=== PATIENT | female | born 1950 | race Caucasian/White ===

== ENCOUNTER 2019-12-31 08:48 | Outpatient (REF) | payer MEDICARE, OTHER, SELFPAY ==
--- NOTE | 2019-12-31 | MM_ITS ---
EXAMINATION: MM SCREENING DIGITAL BREAST TOMOSYNTHESIS, BILATERAL CLINICAL INFORMATION: Screening. Asymptomatic. The lifetime risk of breast cancer based on the Tyrer-Cuzick Model is 3%. COMPARISON: Mammography: 12/25/2018, 10/24/2017, 09/26/2016 TECHNIQUE: Digital breast tomosynthesis is performed in both the craniocaudal and mediolateral oblique views along with computer-aided detection (CAD). Synthesized 2D images are generated from the tomosynthesis. Additional left MLO view is provided. FINDINGS: The breasts are heterogeneously dense, which may obscure small masses (ACR BI-RADS breast composition Category c). There are no significant masses, abnormal calcifications, or other abnormalities. Parenchymal pattern is similar to prior studies. The axilla and skin contours are unremarkable. IMPRESSION: No significant changes from prior studies. ASSESSMENT: BI-RADS 1: Negative RECOMMENDATION: Routine annual mammography screening. This patient's information was entered into a reminder system with a target due date for their next mammogram.
== END 2019-12-31 08:49 | disposition home or self-care (01) ==
LOC: HO.MAMMO 08:48
PROVIDERS: PCP Internal Medicine; Visit Provider Internal Medicine
DX: Z12.31 Encounter for screening mammogram for malignant neoplasm of breast (principal)
CPT/HCPCS: 77063; 77067; 78014

== ENCOUNTER 2020-01-22 09:18 | Outpatient (REF) | payer MEDICARE, OTHER, SELFPAY ==
[2020-01-22 11:58] LABS: Cholesterol 229 mg/dL; HDL Cholesterol 112 mg/dL; LDL Cholesterol Calculated 95 mg/dl; Triglycerides 111 mg/dL
== END 2020-01-22 09:19 | disposition home or self-care (01) ==
LOC: HO.HMGCLDS 09:18
PROVIDERS: PCP Internal Medicine; Visit Provider Internal Medicine
DX: E78.5 Hyperlipidemia, unspecified (principal)
CPT/HCPCS: 80061

== ENCOUNTER 2020-02-08 09:08 | Day surgery (SDC) | payer MEDICARE, OTHER, SELFPAY ==
[2020-02-02 15:32] VITALS: BMI 23.3
--- NOTE | 2020-02-05 09:36 | HO.ANESPROP2 ---
Documented by User: Malka Mejia 02/05/20 09:36 HPI - Anesthesia Eval Consult details Narrative: 69yo F for Colonoscopy PMFSH Past Medical History Medical History Elevated cholesterol Hypertension Family History Family History Father No problems noted. Mother Ovarian cancer Son Kidney malignancy Maternal Aunt Ovarian cancer Surgical History Surgical History H/O hernia repair History of tubal ligation Hx of colonoscopy Social History Social History Are you a primary personal care service provider to a significant other at home: No Do you presently have visiting nurse or other home services: No Smoking Status: Current every day smoker Packs Per Day: 0.5 Cigarettes Per Day: 10.0 Years Smoked: 55 Smoked in Last 30 Days: Yes Patient Interested in Nicotine Replacement: No Patient Given Instructions on How to Stop Smoking: Yes Date Education Initiated: 02/02/20 Use of substances other than those prescribed or required for medical reasons: No Advance Directives: No Advance Directives Information Provided: No Advance Directives on File: No Meds Allergies Allergy/AdvReac Type Severity Reaction Status Date / Time acetaminophen AdvReac Anxiety Verified 02/02/20 15:28 [From Tylenol PM] diphenhydramine AdvReac Anxiety Verified 02/02/20 15:28 [From Tylenol PM] Home Medications Medication Instructions Recorded Confirmed Type amlodipine 5 mg tablet 5 mg PO DAILY 01/29/20 02/02/20 History calcium carbonate 600 mg calcium 600 mg PO DAILY 01/29/20 02/02/20 History (1,500 mg) tablet naproxen 500 mg tablet 500 mg PO BID PRN 01/29/20 02/02/20 History omega-3 fatty acids 1,000 mg 1,000 mg PO DAILY 01/29/20 02/02/20 History capsule cholecalciferol (vitamin D3) 25 mcg PO DAILY 02/02/20 02/02/20 History [Vitamin D3] flaxseed 1,000 mg PO DAILY 02/02/20 02/02/20 History Exam Exam Date and Time: February 05, 2020 0936 Height,Weight and Vital Signs: Height 5 ft 2.5 in Weight 58.967 kg Assessment and Plan Assessment Anesthesia Assessment: Chart Reviewed Documented by User: Lobo Vasquez 02/08/20 10:38 PMFSH Past Medical History Medical History Elevated cholesterol Hypertension Family History Family History Father No problems noted. Mother Ovarian cancer Son Kidney malignancy Maternal Aunt Ovarian cancer Surgical History Surgical History H/O hernia repair History of tubal ligation Hx of colonoscopy Social History Social History Are you a primary personal care service provider to a significant other at home: No Do you presently have visiting nurse or other home services: No Smoking Status: Current every day smoker Packs Per Day: 0.5 Cigarettes Per Day: 10.0 Years Smoked: 55 Smoked in Last 30 Days: Yes Patient Interested in Nicotine Replacement: No Patient Given Instructions on How to Stop Smoking: Yes Date Education Initiated: 02/02/20 Use of substances other than those prescribed or required for medical reasons: No Advance Directives: No Advance Directives Information Provided: No Advance Directives on File: No Meds Allergies Allergy/AdvReac Type Severity Reaction Status Date / Time acetaminophen AdvReac Anxiety Verified 02/02/20 15:28 [From Tylenol PM] diphenhydramine AdvReac Anxiety Verified 02/02/20 15:28 [From Tylenol PM] Home Medications Medication Instructions Recorded Confirmed Type amlodipine 5 mg tablet 5 mg PO DAILY 01/29/20 02/02/20 History calcium carbonate 600 mg calcium 600 mg PO DAILY 01/29/20 02/02/20 History (1,500 mg) tablet naproxen 500 mg tablet 500 mg PO BID PRN 01/29/20 02/02/20 History omega-3 fatty acids 1,000 mg 1,000 mg PO DAILY 01/29/20 02/02/20 History capsule cholecalciferol (vitamin D3) 25 mcg PO DAILY 02/02/20 02/02/20 History [Vitamin D3] flaxseed 1,000 mg PO DAILY 02/02/20 02/02/20 History Exam Airway Mallampati Class: II Neck ROM: Full Denture: Upper and Lower Heart: [id number] Lungs: ctab/l Assessment and Plan Assessment Anesthesia Assessment: Anesthesia Plan Discussed, Smoking Cess. Discussed, PAT Visit and Chart Reviewed Final Anesthetic Review NPO: Yes ASA Class: III Final Preanesthetic Review: No Changes in Pt Med Stat, Consent Obtained/Reviewed and Anes Risks/Benef Reviewed Patient Risk: Intermediate Procedure Risk: Low Assessment/Block/Sedation in SS: Assess/Block/Sedation-SS Anesthetic Plan Anesthetic Plan: MAC: Disposition: Standard PACU
[2020-02-08 10:22] VITALS: BP 130/73; PULSE 85; RESP 18; TEMP 36.5; O2SAT 100
[2020-02-08] MEDS: Lactated Ringers 1,000 ML 100 ML IVCONT (10:34)
[2020-02-08 11:49] VITALS: BP 101/55; PULSE 64; RESP 12; TEMP 36.1; O2SAT 96
--- NOTE | 2020-02-08 11:54 | PM.OP ---
Brief Operative Note Date of procedure: 02/08/20 Pre-op diagnosis: Screening Post-op diagnosis: other (Colon polyp along Ileocecal Valve, Diverticulosis, Internal hemorrhoids) Procedure: Colonoscopy to cecum and TI with biopsies Surgeon: Edwin Morton Anesthesia: MAC Estimated blood loss (mL): 3.0 Pathology: other (A. Polypoid lesion along Ileocecal valve) Condition: stable Disposition: PACU
[2020-02-08 12:03] VITALS: BP 138/70; PULSE 60; RESP 16; O2SAT 99
--- NOTE | 2020-02-08 12:32 | OP_ITS ---
SURGEON: Edwin Morton MD INDICATIONS: The patient presents for evaluation of colorectal cancer screening. Full consent has been obtained from her for this, including risks of bleeding and perforation. PREOPERATIVE DIAGNOSIS: Colorectal cancer screening. POSTOPERATIVE DIAGNOSIS: PROCEDURE PERFORMED: Colonoscopy to the cecum and terminal ileum with biopsies. ESTIMATED BLOOD LOSS: COMPLICATIONS: ANESTHESIA: Monitored anesthesia care and glucagon 1.0 mg IV x1 dose. ASSISTANTS: SPECIMENS: POSTOPERATIVE DIAGNOSES: Colorectal cancer screening, colon polyp along ileocecal valve, diverticulosis, internal hemorrhoids. DESCRIPTION OF PROCEDURE: The patient was placed in the left lateral decubitus position. The digital rectal exam revealed no abnormalities. The Olympus video pediatric colonoscope was entered into the rectum and advanced easily to the cecum. Once in the cecum, I did identify normal-appearing cecal pouch with appendiceal orifice. The terminal ileum was cannulated and appeared normal. Scope was withdrawn back in the colon. The entire cecum appeared normal. The scope was then slowly withdrawn assessing all mucosal surfaces carefully. The ileocecal valve was carefully inspected. Along the outer portion or lip of the ileocecal valve, extending along the entire portion of this part of the ileocecal valve, was a slightly raised, but grossly adenomatous appearing tissue. It was not ulcerated and did not appear grossly malignant. Nonetheless, it did appear adenomatous and involve the entire length of this part of the ileocecal valve. As best I could tell, it did not actually enter the valve itself. Given its location and the involvement of the great majority of this part of the ileocecal valve, I did opt to only biopsy it rather than try to remove it. The scope was then slowly withdrawn assessing the remainder of the colon carefully. Preparation was excellent. I did not visualize any polyps, colitis, nor angiodysplasia. There was a mild amount of sigmoid diverticulosis. In the rectum, scope was retroflexed visualizing internal hemorrhoids, but no other pathology. The rectal mucosa appeared normal. The scope was straightened out and withdrawn from the patient. She tolerated procedure well and was returned to the recovery area in stable condition. IMPRESSION: 1. Probable adenomatous polypoid lesion along ileocecal valve, status post biopsy. 2. Diverticulosis. 3. Internal hemorrhoids. PLAN: The results of biopsy will be checked. If indeed this is adenomatous tissue, we would then have to decide how best to try to remove it. Given its location, rather diffuse involvement of this part of the ileocecal valve, and her relatively young age, one option would be surgical resection. Another option would be attempting to remove this endoscopically. The results of the pathology will be checked and we shall make arrangements as needed. She was advised not to use any aspirin and NSAIDs for 1 week. MD YENNIFER Hargrove/KAYLEY / [id number] MTDD
== END 2020-02-08 11:45 | disposition home or self-care (01) ==
PROVIDERS: PCP Internal Medicine; Visit Provider Internal Medicine
PROC: 0DJD8ZZ Inspection of Lower Intestinal Tract, Via Natural or Artificial Opening Endoscopic (ICD-10-PCS; CPT 45378; principal; 2020-02-08 10:30)
DX: Z12.11 Encounter for screening for malignant neoplasm of colon (principal); Z86.010 Personal history of colon polyps; D12.0 Benign neoplasm of cecum; K57.30 Diverticulosis of large intestine without perforation or abscess without bleeding; K64.8 Other hemorrhoids; I10 Essential (primary) hypertension; E78.00 Pure hypercholesterolemia, unspecified; Z79.899 Other long term (current) drug therapy; Z79.1 Long term (current) use of non-steroidal anti-inflammatories (NSAID); F17.210 Nicotine dependence, cigarettes, uncomplicated
CPT/HCPCS: 45380; 88305

== ENCOUNTER → 2020-03-15 09:26 | Outpatient (BNVA) | payer MEDICARE, OTHER, SELFPAY | PROVIDERS: PCP Internal Medicine; Referring Provider Internal Medicine; Visit Provider Surgery | DX: D12.0 Benign neoplasm of cecum (principal); F17.200 Nicotine dependence, unspecified, uncomplicated | CPT/HCPCS: 99202 ==

== ENCOUNTER 2020-03-23 06:43 | Inpatient (IN) | payer MEDICARE, OTHER, SELFPAY ==
--- NOTE | 2020-03-21 13:32 | HO.ANESPROP2 ---
Documented by User: Malka Mejia 03/21/20 13:32 HPI - Anesthesia Eval Consult details Narrative: 70yo F for Hand Assisted Colectomy Laparoscopic, Cecum PMFSH Past Medical History Medical History Elevated cholesterol History of pain when walking Hypertension Situational anxiety Family History Family History Father No problems noted. Mother Ovarian cancer Son Kidney malignancy Maternal Aunt Ovarian cancer Surgical History Surgical History H/O hernia repair History of tubal ligation Hx of colonoscopy Hx of tonsillectomy Social History Social History Household Members Other:: grandson+friend Are you a primary care transitions nurse to a significant other at home: No Do you presently have visiting nurse or other home services: No Alcohol intake: current Alcohol intake frequency: 0-2 drinks per day Alcohol type: hard liquor Smoking Status: Current every day smoker Tobacco Type: Cigarette Packs Per Day: 0.5 Cigarettes Per Day: 10 Years Smoked: 30 Patient Interested in Nicotine Replacement: Yes Patient Given Instructions on How to Stop Smoking: Yes Date Education Initiated: 03/16/20 Use of substances other than those prescribed or required for medical reasons: No Have you been hit, kicked, punched, or otherwise hurt by someone within the past year? If so, by whom?: No Advance Directives: No Advance Directives Information Provided: No Advance Directives on File: No Recently lost weight without trying: No Meds Allergies Allergy/AdvReac Type Severity Reaction Status Date / Time diphenhydramine AdvReac Anxiety Verified 03/23/20 06:36 [From Tylenol PM] Home Medications Medication Instructions Recorded Confirmed Type calcium carbonate 600 mg calcium 600 mg PO DAILY 01/29/20 03/23/20 History (1,500 mg) tablet naproxen 500 mg tablet 500 mg PO BID PRN 01/29/20 03/23/20 History omega-3 fatty acids 1,000 mg 1,000 mg PO DAILY 01/29/20 03/23/20 History capsule cholecalciferol (vitamin D3) 25 mcg PO DAILY 02/02/20 03/23/20 History [Vitamin D3] flaxseed 1,000 mg PO DAILY 02/02/20 03/23/20 History Exam Exam Date and Time: March 21, 2020 1332 Documented by User: Leatha Palafox 03/23/20 07:33 PMFSH Past Medical History Medical History Elevated cholesterol History of pain when walking Hypertension Situational anxiety Family History Family History Father No problems noted. Mother Ovarian cancer Son Kidney malignancy Maternal Aunt Ovarian cancer Surgical History Surgical History H/O hernia repair History of tubal ligation Hx of colonoscopy Hx of tonsillectomy Social History Social History Household Members Other:: grandson+friend Are you a primary care transitions nurse to a significant other at home: No Do you presently have visiting nurse or other home services: No Alcohol intake: current Alcohol intake frequency: 0-2 drinks per day Alcohol type: hard liquor Smoking Status: Current every day smoker Tobacco Type: Cigarette Packs Per Day: 0.5 Cigarettes Per Day: 10 Years Smoked: 30 Patient Interested in Nicotine Replacement: Yes Patient Given Instructions on How to Stop Smoking: Yes Date Education Initiated: 03/16/20 Use of substances other than those prescribed or required for medical reasons: No Have you been hit, kicked, punched, or otherwise hurt by someone within the past year? If so, by whom?: No Advance Directives: No Advance Directives Information Provided: No Advance Directives on File: No Recently lost weight without trying: No Meds Allergies Allergy/AdvReac Type Severity Reaction Status Date / Time diphenhydramine AdvReac Anxiety Verified 03/23/20 06:36 [From Tylenol PM] Home Medications Medication Instructions Recorded Confirmed Type calcium carbonate 600 mg calcium 600 mg PO DAILY 01/29/20 03/23/20 History (1,500 mg) tablet naproxen 500 mg tablet 500 mg PO BID PRN 01/29/20 03/23/20 History omega-3 fatty acids 1,000 mg 1,000 mg PO DAILY 01/29/20 03/23/20 History capsule cholecalciferol (vitamin D3) 25 mcg PO DAILY 02/02/20 03/23/20 History [Vitamin D3] flaxseed 1,000 mg PO DAILY 02/02/20 03/23/20 History Exam Airway Mallampati Class: I TM Dist: >3cm Neck ROM: Limited Denture: Upper Loose/Missing/Broken Teeth: No Heart: RRR Lungs: CTA Assessment and Plan Assessment Anesthesia Assessment: Anesthesia Plan Discussed and Chart Reviewed Final Anesthetic Review NPO: Yes ASA Class: II Final Preanesthetic Review: Meds/Allgs Chart Reviewed, Consent Obtained/Reviewed and Anes Risks/Benef Reviewed Patient Risk: Intermediate Procedure Risk: Intermediate Anesthetic Plan Anesthetic Plan: GA Disposition: Standard PACU
[2020-03-22 14:52] VITALS: BMI 24.3
[2020-03-23] VITALS (14 sets, daily range): BP systolic 117–132; BP diastolic 55–93; PULSE 64–95; RESP 16–18; TEMP 36–36.4; O2SAT 92–99
--- NOTE | 2020-03-23 | ECG_ITS ---
Test Reason : preop cardio eval Blood Pressure : / mmHG Vent. Rate : 082 BPM Atrial Rate : 082 BPM P-R Int : 184 ms QRS Dur : 088 ms QT Int : 360 ms P-R-T Axes : 069 -75 065 degrees QTc Int : 420 ms Normal sinus rhythm Possible Left atrial enlargement Left axis deviation Abnormal ECG No previous ECGs available Referred By: Malka Mejia Electronically Signed By:SHASHA PERSAUD MD
[2020-03-23 06:42] LABS: COVID-19 Test Negative (Negative)
[2020-03-23 06:49] LABS: Hematocrit 42.1 % (37-47); Hemoglobin 15.1 g/dl (12.0-16.0); Mean Corpuscular HGB Conc 35.9 g/dl (31.0-35.0); Mean Corpuscular Volume 100.5 fL (80-98); Platelet Count 325 X10*3/uL (160-400); Red Blood Count 4.19 X10*6/uL (4.20-5.50); Red Cell Distribution Width 12.1 % (11.0-16.0); White Blood Count 7.1 X10*3/uL (4.8-10.8)
[2020-03-23] MEDS: Lactated Ringers 1,000 ML 100 ML IVCONT (06:51)
--- NOTE | 2020-03-23 07:20 | MHC.SHP ---
Pre-Procedural Eval Section A The patient is an INPATIENT: No Changes since office visit: Yes Patient answered all questions; No Cold of Flu in the past 2 weeks, No New Medical Problems and No Changes in Medication The History & Physical has been completed within 30 days and I have reviewed it.: Yes Section B Chief Complaint: S/P COLECTOMY Allergies: Allergies Allergy/AdvReac Type Severity Reaction Status Date / Time diphenhydramine AdvReac Anxiety Verified 03/23/20 06:36 [From Tylenol PM] Plan I have reviewed the history and physical and performed a pertinent physical examination on my patient. No changes have occurred unless specified.
[2020-03-23 07:22] LABS: Anion Gap 16 (12-20); Blood Urea Nitrogen 12 mg/dL (9-16); Calcium 9.5 mg/dL (8.4-10.2); Carbon Dioxide 23 mmol/L (22-29); Chloride 100 mmol/L (96-108); Creatinine Clr Calc Pharmacy 69.4; Estimated Glomerular Filt Rate > 60; Glucose Fasting 101 mg/dL (60-99); Potassium 3.2 mmol/l (3.3-5.1); Sodium 136 mmol/L (135-145)
--- NOTE | 2020-03-23 07:32 | PC.NURSE ---
ANESTHESIA MADE AWARE OF K=3.2 AT 728,NO NEW ORDERS
--- NOTE | 2020-03-23 09:20 | W.PM.OPN ---
Operative Note Operative Note Date of Service: 03/23/20 Narrative: Preoperative diagnosis: Sessile polyp ileocecal valve Postoperative diagnosis: Same Procedure: Cecal resection Environmental Studies Program Director: YAZMIN Smith Anesthesia: General endotracheal Specimen: Cecum Estimated blood loss: 20 cc Immediate complications: None Indications: This is a 70-year-old female who recently underwent colonoscopy. A sessile polyp was identified that appeared to be extending into the ileocecal valve. It was not possible to resect the polyp endoscopically with good confidence that it had been removed and decision was made to proceed with cecal resection. Procedure in detail: The patient in the supine position following induction of adequate general anesthesia, the abdomen was prepped with ChloraPrep and was draped sterilely. Time-out procedure was performed. 2 g of cefotetan were infused for antibiotic prophylaxis. Skin and subcutaneous tissues along the lower midline were infiltrated with local anesthetic and an approximately 8 cm incision was made beginning just above the umbilicus and extending inferiorly in the midline. The incision was deepened through the level of the fascia using the electrosurgical pencil. The peritoneum was elevated with Elma clamps and was incised. Exploration was carried out. The cecum will was identified easily. Moist packs replaced into the abdomen and Kerns retractor was placed along the right lateral margin. The cecum and right colon were mobilized along the lateral peritoneal reflection. Mobilization was then carried along inferior to the cecum. The cecum, proximal right colon and distal ileum could then be delivered through the incision. Tell for placed around wound edges. An incision was made along the mesenteric margin of the distal ileum approximately 5 cm from the ileocecal valve. The AYO 60, 3.8 stapler was employed to divide the small bowel at that level. Point for division of the right colon just distal to the cecum was chosen and the mesentery was divided using the LigaSure up to that point. The AYO 60, 3.8 stapler was again employed to divide the right colon at that level. Following this, a functional end-to-end anastomosis was created using the AYO 60, 3.8 and TA 60, 3.5 staplers. Staple lines were inspected to ensure that there was no bleeding prior to completing the anastomosis. The crotch of the anastomosis was reinforced with a single interrupted suture of 2 0 Polysorb. Sponges were placed around the base of the bowel to the level of the anastomosis and the area was irrigated with saline solution and again inspected for bleeding. None was seen. Gloves and instruments were changed. The mesentery was closed with a single [id number] suture of 2 0 Polysorb. The area of the anastomosis was allowed to drop back into the peritoneal cavity. The abdomen was too irrigated with saline solution and again inspected for bleeding. None was seen. The omentum was placed beneath the incision. The fascia was then closed in a running fashion using 1. Maxon. Subcutaneous tissues were irrigated and loosely reapproximated with interrupted sutures 2 0 Polysorb. Skin was reapproximated using nathen and wound ac of quarter-inch plain packing were placed between approximately every 3rd staple. A dry sterile dressing was applied. Immediate gross of the operative specimen revealed that the polyp appeared to be completely excised. Sponge and instrument counts were correct. She tolerated the procedure well and was transported to the recovery room in stable condition. There were no immediate complications.
[2020-03-23] MEDS: Lactated Ringers 1,000 ML 80 ML IVCONT (14:14)
[2020-03-23] MEDS: oxyCODONE HCl Immed Release 5 MG TABLET PO (21:12)
[2020-03-23] MEDS: Atorvastatin Calcium 20 MG TABLET PO (21:12)
[2020-03-24] VITALS (7 sets, daily range): BP systolic 120–150; BP diastolic 56–73; PULSE 60–83; RESP 16–20; TEMP 36.4–36.9; O2SAT 93–96
[2020-03-24] MEDS: Lactated Ringers 1,000 ML 80 ML IVCONT (03:58)
[2020-03-24 06:49] LABS: Hematocrit 35.6 % (37-47); Hemoglobin 12.5 g/dl (12.0-16.0); Mean Corpuscular HGB Conc 35.1 g/dl (31.0-35.0); Mean Corpuscular Hemoglobin 35.7 pg (27.0-33.0); Mean Corpuscular Volume 101.7 fL (80-98); Mean Platelet Volume 9.6 fL (9.4-12.3); Platelet Count 277 X10*3/uL (160-400); Red Cell Distribution Width 12.2 % (11.0-16.0); White Blood Count 14.4 X10*3/uL (4.8-10.8)
[2020-03-24 07:30] LABS: Anion Gap 12 (12-20); Blood Urea Nitrogen 6 mg/dL (9-16); Calcium 8.8 mg/dL (8.4-10.2); Carbon Dioxide 26 mmol/L (22-29); Chloride 101 mmol/L (96-108); Creatinine Clr Calc Pharmacy 70.5; Estimated Glomerular Filt Rate > 60; Glucose Fasting 120 mg/dL (60-99); Potassium 3.1 mmol/l (3.3-5.1); Sodium 136 mmol/L (135-145)
[2020-03-24] MEDS: amLODIPine Besylate 5 MG TABLET PO (08:56)
--- NOTE | 2020-03-24 09:20 | PM.PNGS ---
Subjective Subjective Date of Service: 03/24/20 Interval history: Reports incisional soreness. Has only taken 1 dose of oxycodone. Tolerating clear liquids. Physical Exam Vital Signs: Vital Signs: Last Vital Signs Temp 97.8 F 03/24/20 08:00 Pulse 63 03/24/20 08:56 Resp 20 03/24/20 08:00 BP 127/56 L 03/24/20 08:56 Pulse Ox 96 03/24/20 08:00 Body Mass Index 24.3 Const: Other: Alert, appears comfortable Resp: Other: Clear to auscultation Cardio: Other: Regular rate and rhythm GI: Other: Soft, nondistended, bowel sounds active, dressing dry and intact Progress Note: A&P Assessment and plan (1) Adenoma: Problem details: She has an adenomatous lesion at the level of the ileocecal valve that could not be resected endoscopically. Status: Acute Assessment and Plan: She is doing well following ileocecal resection for sessile polyp of the ileocecal valve. She is tolerating clear liquids. Diet will be advanced to regular. Will stop IV fluids. Rosales catheter has been removed. She has mild hypokalemia this morning. Will give p.o. potassium. Recheck level tomorrow. Fall Risk Details Current Medications: Current Medications Generic Name Dose Route Start Last Admin Trade Name Freq PRN Reason Stop Dose Admin Amlodipine Besylate 5 mg 03/24/20 09:00 03/24/20 08:56 Amlodipine Besylate 5 Mg Tablet PO 5 mg DAILY RENATO Administration Protocol Atorvastatin Calcium 20 mg 03/23/20 21:00 03/23/20 21:12 Atorvastatin Calcium 20 Mg Tablet PO 20 mg BEDTIME RENATO Administration Acetaminophen 1,000 mg in 100 mls @ 400 mls/hr 03/24/20 09:00 Ofirmev IV 03/26/20 03:14 Q6H RENATO Potassium Chloride 20 meq/ 1,010 mls @ 80 mls/hr 03/24/20 08:00 Lactated Ringer's IVCONT .[id number] RENATO Morphine Sulfate 4 mg 03/23/20 13:40 Morphine Sulfate 4 Mg/Ml Cartridge IVPUSH Q3H PRN Pain, Severe (Pain Scale 7-10) Ondansetron HCl 4 mg 03/23/20 13:40 Ondansetron Hcl 4 Mg/2 Ml Vial IVPUSH Q8H PRN Nausea and Vomiting Oxycodone HCl 5 mg 03/23/20 13:40 03/23/20 21:12 Oxycodone Hcl Immed Release 5 Mg Tablet PO 5 mg Q4H PRN Administration Pain, Moderate (Pain Scale 4-6 Time Spent With Patient Time: Total time spent is greater than 50% in coordination of care (as documented) at patient's floor/unit and/or counseling patient: Time with patient: 15 - 24 minutes
--- NOTE | 2020-03-24 09:54 | HO.POSTANES ---
Post Anesthesia Evaluation Post Anesthesia Evaluation Vital Signs: Vital Signs Temp Pulse Resp BP Pulse Ox 03/24/20 08:56 63 127/56 L 03/24/20 08:00 97.8 F 63 20 127/56 L 96 03/24/20 03:53 97.7 F 67 16 135/70 95 03/24/20 00:00 98.2 F 83 16 129/70 94 Anesthesia: General Endotracheal-GETA Mental Status: Awake Pain Control: Satisfactory Nausea/Vomiting: None Hydration: Adequate Anesthesia-Related Issues: No Anes. Related Issues
[2020-03-24] MEDS: Potassium Chloride ER 20 MEQ TAB.ER.PRT PO (10:16)
--- NOTE | 2020-03-24 11:32 | MHC.CR.30 ---
[address] [phone] F: [phone] Cardiac Rehab Reassessment Diagnosis: Initial Evaluation date: Total Sessions Attended: Progress Note Type: Last Progress Note Date: Medications: Medication Changes: Comments: Please sign and return to Cardiac Rehab. Thank you.
--- NOTE | 2020-03-24 11:34 | MHC.CM.PN ---
NURSE DAIRY CONSULTANT NOTE ELECTRONIC MEDICAL RECORD REVIEWED ALONG WITH CASE DISCUSSED WITH STAFF NURSE , AND ON MULTIPLE DISCIPLINARY ROUNDS. PATIENT LIVES ALONE, PATIENT IS ACTIVE INDEPENDENT IN ALL ADLS AND MOBILITY, CONTINUES TO DRIVE. SHE HAS NO VNA/NO DURABLE MEDICAL EQUIPMENT IN THE HOME, ( DISCHARGE PLAN S/P ( CECAL RESECTION ) HOME NO SERVICES [facility] ORDERED PCP DR SINGLETON PATIENT TO CALL FOR POST HOSPITAL D/C FOLLOWUP SURGICAL FOLLOW UP PER D/C INSTRUCTIONS TRANSPORTATION -PATIENT TO CALL FAMILY IMM EXPLAINED AND GIVEN 03/24/2020
[2020-03-24] MEDS: Morphine Sulfate 4 MG/ML CARTRIDGE IVPUSH (20:19)
[2020-03-24] MEDS: Docusate Sodium 100 MG CAPSULE PO (20:22)
[2020-03-24] MEDS: Atorvastatin Calcium 20 MG TABLET PO (20:22)
[2020-03-25] VITALS: BP 163/92; PULSE 84; RESP 18; TEMP 37.1; O2SAT 93
[2020-03-25] MEDS: oxyCODONE HCl Immed Release 5 MG TABLET 10 MG PO (01:13)
[2020-03-25 04:00] VITALS: BP 165/100; PULSE 94; RESP 16; TEMP 36.6; O2SAT 95
[2020-03-25 07:20] VITALS: BP 156/90; PULSE 110; RESP 18; TEMP 36.6; O2SAT 96
--- NOTE | 2020-03-25 08:21 | PM.PNGS ---
Subjective Subjective Date of Service: 03/25/20 Interval history: Postoperative day 2 status post partial colectomy. She was advanced to a regular diet last evening but reports tolerating only small portion before she felt increased discomfort. She denies nausea or vomiting. She feels she may have a bowel movement today. She reports having difficulty sleeping last night. Physical Exam Vital Signs: Vital Signs: Last Vital Signs Temp 97.8 F 03/25/20 07:20 Pulse 110 H 03/25/20 07:20 Resp 18 03/25/20 07:20 BP 156/90 H 03/25/20 07:20 Pulse Ox 96 03/25/20 07:20 Body Mass Index 24.3 Const: General: cooperative, healthy appearing, comfortable and no acute distress Resp: Other: On 2 L nasal cannula, O2 sat 97% Effort & Inspection: normal respiratory effort Auscultation: no rhonchi and no wheezes GI: Other: Soft, nondistended, appropriate incisional tenderness, wounds clean and intact Skin: Other: Warm and dry, no rash Extrem: Other: No edema Progress Note: A&P Assessment and plan (1) Adenoma: Problem details: She has an adenomatous lesion at the level of the ileocecal valve that could not be resected endoscopically. Status: Acute Assessment and Plan: Patient is now 2 days post partial colectomy for an ileocecal adenomatous lesion. She tolerated the procedure well and is recovering nicely. She tolerated some regular food yesterday but does not feel comfortable enough to go home today. She denies a bowel movement as of yet. Patient encouraged to ambulate and use the incentive spirometry. Will re-evaluate in the a.m. for possible discharge. Pathology is pending. Fall Risk Details Current Medications: Current Medications Generic Name Dose Route Start Last Admin Trade Name Freq PRN Reason Stop Dose Admin Amlodipine Besylate 5 mg 03/24/20 09:00 03/24/20 08:56 Amlodipine Besylate 5 Mg Tablet PO 5 mg DAILY RENATO Administration Protocol Atorvastatin Calcium 20 mg 03/23/20 21:00 03/24/20 20:22 Atorvastatin Calcium 20 Mg Tablet PO 20 mg BEDTIME RENATO Administration Docusate Sodium 100 mg 03/24/20 21:00 03/24/20 20:22 Docusate Sodium 100 Mg Capsule PO 100 mg BID RENATO Administration Acetaminophen 1,000 mg in 100 mls @ 400 mls/hr 03/24/20 09:00 03/25/20 01:14 Ofirmev IV 03/26/20 03:14 Not Given Q6H RENATO Morphine Sulfate 4 mg 03/23/20 13:40 03/24/20 20:19 Morphine Sulfate 4 Mg/Ml Cartridge IVPUSH 4 mg Q3H PRN Administration Pain, Severe (Pain Scale 7-10) Ondansetron HCl 4 mg 03/23/20 13:40 Ondansetron Hcl 4 Mg/2 Ml Vial IVPUSH Q8H PRN Nausea and Vomiting Oxycodone HCl 5 mg 03/23/20 13:40 03/23/20 21:12 Oxycodone Hcl Immed Release 5 Mg Tablet PO 5 mg Q4H PRN Administration Pain, Moderate (Pain Scale 4-6 Oxycodone HCl 10 mg 03/24/20 15:06 03/25/20 01:13 Oxycodone Hcl Immed Release 5 Mg Tablet PO 10 mg Q4H PRN Administration Pain, Severe (Pain Scale 7-10) Time Spent With Patient Time: Total time spent is greater than 50% in coordination of care (as documented) at patient's floor/unit and/or counseling patient: Time with patient: 15 - 24 minutes
[2020-03-25 09:09] LABS: Anion Gap 17 (12-20); Blood Urea Nitrogen 9 mg/dL (9-16); Calcium 9.6 mg/dL (8.4-10.2); Carbon Dioxide 21 mmol/L (22-29); Chloride 101 mmol/L (96-108); Creatinine Clr Calc Pharmacy 59.2; Estimated Glomerular Filt Rate > 60; Glucose Fasting 139 mg/dL (60-99); Potassium 3.4 mmol/l (3.3-5.1); Sodium 136 mmol/L (135-145)
[2020-03-25] MEDS: amLODIPine Besylate 5 MG TABLET PO (09:13)
[2020-03-25] MEDS: Docusate Sodium 100 MG CAPSULE PO ×2 (09:13→20:59)
[2020-03-25 12:00] VITALS: BP 114/80; PULSE 111; RESP 16; TEMP 36.2; O2SAT 100
[2020-03-25 16:00] VITALS: BP 139/78; PULSE 110; RESP 18; TEMP 36.9; O2SAT 94
[2020-03-25 19:06] VITALS: BP 153/80; PULSE 112; RESP 18; TEMP 36.2; O2SAT 96
[2020-03-25] MEDS: Zolpidem Tartrate 5 MG TABLET PO (20:59)
[2020-03-25] MEDS: Atorvastatin Calcium 20 MG TABLET PO (20:59)
[2020-03-26] VITALS: BP 149/91; PULSE 111; RESP 18; TEMP 35.9; O2SAT 97
[2020-03-26 04:00] VITALS: BP 155/93; PULSE 109; RESP 16; TEMP 36; O2SAT 97
[2020-03-26 08:00] VITALS: BP 126/83; PULSE 117; RESP 18; TEMP 36.3; O2SAT 96
[2020-03-26 09:12] VITALS: BP 126/83; PULSE 117
[2020-03-26] MEDS: amLODIPine Besylate 5 MG TABLET PO (09:12)
[2020-03-26] MEDS: Acetaminophen 325 MG TABLET 650 MG PO (09:12)
[2020-03-26] MEDS: Docusate Sodium 100 MG CAPSULE PO (09:12)
--- NOTE | 2020-03-26 09:32 | PM.PNGS ---
Subjective Subjective Date of Service: 03/26/20 Interval history: Patient tolerated a regular diet yesterday and feels much improved today. She was able to get some sleep overnight. She denies nausea, vomiting, fever, or chills. She would like to be discharged to home today. Physical Exam Vital Signs: Vital Signs: Last Vital Signs Temp 97.3 F 03/26/20 08:00 Pulse 117 H 03/26/20 09:12 Resp 18 03/26/20 08:00 BP 126/83 03/26/20 09:12 Pulse Ox 96 03/26/20 08:00 Body Mass Index 24.3 Const: General: cooperative, healthy appearing, comfortable and no acute distress Resp: Other: Normal respiratory effort, no respiratory distress, breathing comfortably on room air GI: Other: Soft, nondistended, minimal incisional tenderness. Dressings removed and wounds are clean, dry, and intact. Skin: Other: Warm, dry, no rash Extrem: Other: No edema, full range of motion Progress Note: A&P Assessment and plan (1) Adenoma: Problem details: She has an adenomatous lesion at the level of the ileocecal valve that could not be resected endoscopically. Status: Acute Assessment and Plan: Patient now postoperative day 3 status post ileocecal resection for a ileocecal adenoma. She tolerated the procedure well and is tolerating a regular diet this morning without nausea or vomiting. Her abdomen is soft and nondistended. She has not had a bowel movement but is passing flatus. She would like to be discharged to home where she feels she will be more comfortable. She will follow up as an outpatient with Dr. Martinez for staple removal. Fall Risk Details Current Medications: Current Medications Generic Name Dose Route Start Last Admin Trade Name Freq PRN Reason Stop Dose Admin Acetaminophen 650 mg 03/26/20 08:51 03/26/20 09:12 Acetaminophen 325 Mg Tablet PO 650 mg QID PRN Administration Pain, Mild (Pain Scale 1-3) Amlodipine Besylate 5 mg 03/24/20 09:00 03/26/20 09:12 Amlodipine Besylate 5 Mg Tablet PO 5 mg DAILY RENATO Administration Protocol Atorvastatin Calcium 20 mg 03/23/20 21:00 03/25/20 20:59 Atorvastatin Calcium 20 Mg Tablet PO 20 mg BEDTIME RENATO Administration Docusate Sodium 100 mg 03/24/20 21:00 03/26/20 09:12 Docusate Sodium 100 Mg Capsule PO 100 mg BID RENATO Administration Morphine Sulfate 4 mg 03/23/20 13:40 03/24/20 20:19 Morphine Sulfate 4 Mg/Ml Cartridge IVPUSH 4 mg Q3H PRN Administration Pain, Severe (Pain Scale 7-10) Ondansetron HCl 4 mg 03/23/20 13:40 Ondansetron Hcl 4 Mg/2 Ml Vial IVPUSH Q8H PRN Nausea and Vomiting Oxycodone HCl 5 mg 03/23/20 13:40 03/23/20 21:12 Oxycodone Hcl Immed Release 5 Mg Tablet PO 5 mg Q4H PRN Administration Pain, Moderate (Pain Scale 4-6 Oxycodone HCl 10 mg 03/24/20 15:06 03/25/20 01:13 Oxycodone Hcl Immed Release 5 Mg Tablet PO 10 mg Q4H PRN Administration Pain, Severe (Pain Scale 7-10) Zolpidem Tartrate 5 mg 03/25/20 16:54 03/25/20 20:59 Zolpidem Tartrate 5 Mg Tablet PO 5 mg BEDTIME PRN Administration Insomnia Time Spent With Patient Time: Total time spent is greater than 50% in coordination of care (as documented) at patient's floor/unit and/or counseling patient: Time with patient: 15 - 24 minutes
--- NOTE | 2020-03-28 13:25 | PM.DS ---
DS: Providers Provider Date of admission: 03/23/20 06:43 Primary care physician: Mookie Husain MD DS: Diagnosis Discharge Diagnosis (1) Adenoma: Status: Acute Problem details: She has an adenomatous lesion at the level of the ileocecal valve that could not be resected endoscopically. (2) S/P right colectomy: Status: Acute DS: Medications Discharge Medications Home Medications: Home Medications Medication Instructions Recorded Confirmed calcium carbonate 600 mg calcium 600 mg PO DAILY 01/29/20 03/23/20 (1,500 mg) tablet naproxen 500 mg tablet 500 mg PO BID PRN 01/29/20 03/23/20 omega-3 fatty acids 1,000 mg 1,000 mg PO DAILY 01/29/20 03/23/20 capsule cholecalciferol (vitamin D3) 25 mcg PO DAILY 02/02/20 03/23/20 [Vitamin D3] flaxseed 1,000 mg PO DAILY 02/02/20 03/23/20 Previous Rx's Medication Instructions Recorded atorvastatin 20 mg tablet 20 mg PO BEDTIME 90 Days #90 tab 01/08/20 hydrochlorothiazide 25 mg tablet 25 mg PO DAILY #90 tab 01/19/20 amlodipine 5 mg tablet 5 mg PO DAILY #90 tab 03/08/20 DS: Summary Hospital Course Hospital Course: BRIEF HPI: This is a 70-year-old female who recently underwent colonoscopy where a sessile polyp was identified that appeared to be extending into the ileocecal valve. It was not possible to resect the polyp endoscopically with good confidence that it had been removed and decision was made to proceed with cecal resection. She now presents for the procedure. HOSPITAL COURSE: On 03/23/20, a right colon resection was performed by Dr. Martinez without complication. The patient tolerated the procedure well and was admitted following for observation. The patient had an uncomplicated post operative course. On POD #1, she was tolerating clear liquids without any nausea or vomiting. She was advanced to a solid diet. Her lopez was removed. She was ambulated. She continued to do well post operatively and began to pass flatus and have her pain well controlled with PO analgesics. On POD #3, she was tolerating a solid diet, comfortable on PO analgesics, passing flatus. Her abdomen was benign with appropriate post op tenderness and a clean incision. She felt ready for discharge. She was discharged to home on 03/26/2020 in stable condition. Status at Discharge Functional status at discharge: independent ambulation Overall status at discharge: patient is progressing back to baseline Time Spent with Patient Time attestation: Total time spent providing and/or coordinating discharge services: Physical Exam Vital Signs: Vital Signs: Last Vital Signs Temp 97.3 F 03/26/20 08:00 Pulse 117 H 03/26/20 09:12 Resp 18 03/26/20 08:00 BP 126/83 03/26/20 09:12 Pulse Ox 96 03/26/20 08:00 Body Mass Index 24.3 DS: Data Data Completed and Pending Pending studies at discharge: Pending at discharge 03/23/20 08:30 Surgical [PTH] Routine Labs on day of discharge: 03/23/20 ECG 12 lead EKG Stat 03/23/20 06:15 COVID-19 ID NOW ([place]) Stat 03/23/20 06:17 Acetaminophen [Ofirmev] 1,000 mg in 100 ml IV PREOP Albuterol Sulfate (0.083%) [Ventolin (0.083%)] 2.5 mg INHALE ONCE PRN cefoTEtan disod/Dextrose,Iso [Cefotan] 2 gm in 50 ml IV PREOP 03/23/20 06:17 Compression Therapy QSHIFT Surgical prep, hair removal PREOP 03/23/20 06:30 Type and Screen Stat Basic Metabolic Panel Fasting Stat Complete Blood Count no Diff Stat Lactated Ringers [Lr] 1,000 ml IVCONT 100 mls/hr 03/23/20 06:46 Acetaminophen [Ofirmev] 1,000 mg in 100 ml IV As directed cefoTEtan disodium [Cefotan] 2 gm .ROUTE .STK-MED ONE 03/23/20 07:00 Bupivacaine MPF 0.75 % w/EPI [Sensorcaine MPF 0.75%/EPI 1:200,000] 30 ml .ROUTE .STK-MED ONE 03/23/20 07:18 Lidocaine HCl 2 % MPF [Xylocaine 2 % MPF] 5 ml .ROUTE .STK-MED ONE Rocuronium [place] [Zemuron] 100 mg IV .STK-MED ONE dexAMETHasone sod phosphate [Decadron] 4 mg .ROUTE .STK-MED ONE ondansetron HCL [Zofran] 4 mg .ROUTE .STK-MED ONE propofoL [Diprivan] 200 mg IVPUSH .STK-MED ONE 03/23/20 07:19 Midazolam HCl/PF [Versed] 2 mg .ROUTE .STK-MED ONE fentaNYL citrate/PF [Sublimaze] 2,500 mcg .ROUTE .STK-MED ONE 03/23/20 07:47 Continuous pulse oximetry CONT Oxygen administration Simple Mask 6 lpm Vital Signs Q1H Vital Signs Q5MIN Albuterol Sulfate (0.083%) [Ventolin (0.083%)] 2.5 mg INHALE ONCE PRN Promethazine HCL [Phenergan] 6.25 mg 0.9 % Sodium Chloride [Ns] 50 ml IV ONCE fentaNYL citrate/PF [Sublimaze] 25 mcg IVPUSH Q5M PRN fentaNYL citrate/PF [Sublimaze] 50 mcg IVPUSH Q5M PRN oxyCODONE HCl Immed Release [Roxicodone] 10 mg PO ONCE PRN oxyCODONE HCl Immed Release [Roxicodone] 5 mg PO ONCE PRN 03/23/20 08:03 Glycopyrrolate [Robinul] 0.2 mg .ROUTE .STK-MED ONE 03/23/20 08:38 Sugammadex Sodium [Bridion] 200 mg IVPUSH .STK-MED ONE 03/23/20 09:14 Transfer Order Routine 03/23/20 Breakfast Clear Liquid Diet NPO Diet 03/23/20 13:40 Acetaminophen [Ofirmev] 1,000 mg in 100 ml IV Q6H Lactated Ringers [Lr] 1,000 ml IVCONT 80 mls/hr Morphine Sulfate 4 mg IVPUSH Q3H PRN ondansetron HCL [Zofran] 4 mg IVPUSH Q8H PRN oxyCODONE HCl Immed Release [Roxicodone] 5 mg PO Q4H PRN 03/23/20 13:40 Compression Therapy QSHIFT Out of bed with assist Q4H WHILE AWAKE Vital Signs Q4HR 03/23/20 21:00 Atorvastatin Calcium [Lipitor] 20 mg PO BEDTIME 03/24/20 06:13 Basic Metabolic Panel Fasting Routine Complete Blood Count no Diff Routine 03/24/20 08:00 Lactated Ringers [Lr] 1,000 ml Potassium Chloride 20 meq IVCONT 80 mls/hr 03/24/20 09:00 Acetaminophen [Ofirmev] 1,000 mg in 100 ml IV Q6H amLODIPine Besylate [Norvasc] 5 mg PO DAILY 03/24/20 09:18 Potassium Chloride ER [Klor-con] 20 meq PO ONCE ONE 03/24/20 15:06 oxyCODONE HCl Immed Release [Roxicodone] 10 mg PO Q4H PRN 03/24/20 21:00 Docusate Sodium [Colace] 100 mg PO BID 03/25/20 08:15 Basic Metabolic Panel Fasting Routine 03/25/20 16:54 Zolpidem Tartrate [Ambien] 5 mg PO BEDTIME PRN 03/26/20 08:51 Acetaminophen [Tylenol] 650 mg PO QID PRN Laboratory Last Values WBC 14.4 X10*3/uL (4.8-10.8) H 03/24/20 06:13 RBC 3.50 X10*6/uL (4.20-5.50) L 03/24/20 06:13 Hgb 12.5 g/dl (12.0-16.0) 03/24/20 06:13 Hct 35.6 % (37-47) L 03/24/20 06:13 MCV 101.7 fL (80-98) H 03/24/20 06:13 MCH 35.7 pg (27.0-33.0) H 03/24/20 06:13 MCHC 35.1 g/dl (31.0-35.0) H 03/24/20 06:13 RDW 12.2 % (11.0-16.0) 03/24/20 06:13 Plt Count 277 X10*3/uL (160-400) 03/24/20 06:13 MPV 9.6 fL (9.4-12.3) 03/24/20 06:13 Absolute Nucleated RBC 0.000 X10*3/uL (0.0-0.012) 03/24/20 06:13 Nucleated RBC % (auto) 0.0 /100WBC (0.0-0.2) 03/24/20 06:13 Sodium 136 mmol/L (135-145) 03/25/20 08:15 Potassium 3.4 mmol/l (3.3-5.1) 03/25/20 08:15 Chloride 101 mmol/L (96-108) 03/25/20 08:15 Carbon Dioxide 21 mmol/L (22-29) L 03/25/20 08:15 Anion Gap 17 (12-20) 03/25/20 08:15 BUN 9 mg/dL (9-16) 03/25/20 08:15 Creatinine 0.75 mg/dL (0.5-1.4) 03/25/20 08:15 Estim Creat Clear Calc 59.2 03/25/20 08:15 Estimated GFR > 60 03/25/20 08:15 Fasting Glucose 139 mg/dL (60-99) H 03/25/20 08:15 Calcium 9.6 mg/dL (8.4-10.2) D 03/25/20 08:15 COVID-19 ([facility]) Negative (Negative) 03/23/20 06:15 COVID-19 Clin Com See Note 03/23/20 06:15 Blood Type O Positive 03/23/20 06:30 Antibody Screen NEGATIVE 03/23/20 06:30 Discharge Plan Discharge Patient Disposition: Home, Self-Care Referrals: Mookie Husain MD [Primary Care Provider] - Discharge Medications: Continued atorvastatin 20 mg tablet 20 mg PO BEDTIME 90 Days Qty: 90 RF: 8 hydrochlorothiazide 25 mg tablet 25 mg PO DAILY Qty: 90 RF: 8 amlodipine 5 mg tablet 5 mg PO DAILY Qty: 90 RF: 8 cholecalciferol (vitamin D3) [Vitamin D3] 25 mcg (1,000 unit) Tablet 25 mcg PO DAILY RF: 0 flaxseed 1,000 mg Capsule 1,000 mg PO DAILY RF: 0 omega-3 fatty acids [Fish Oil Concentrate] 1,000 mg capsule 1,000 mg PO DAILY RF: 0 calcium carbonate [Calcium 600] 600 mg calcium (1,500 mg) tablet 600 mg PO DAILY RF: 0 naproxen [Naprosyn] 500 mg tablet 500 mg PO BID PRN (Reason: Pain) RF: 0 Discharge Orders: Discharge Order (Routine); Ordered 03/26/20 Ordered By: Anjum Gonzalez Diet: advance to usual diet and other Activity on Discharge: No heavy lifting Patient Instructions: Colectomy Diet (DC), Colectomy (DC) Discharge Date/Time: 03/26/20 09:55 Visit Report Forms: Patient Portal Discharge page Care Plan Goals: s/p partial colectomy for ileocecal resection; return of normal bowel function and normal activity after period of recovery Health Concerns: Ileocecal adenoma Plan of Treatment: Low residue diet; ambulation encouraged, avoid lifting > 10 pounds. Follow up with Dr. Martinez in 2 weeks.
== END 2020-03-26 09:55 | disposition home or self-care (01) | DRG 331 ==
LOC: HO.SSSA 06:45 → HO.S3 10:53
PROVIDERS: Internal Medicine; Nurse Practitioner; Admitting Provider Surgery; PCP Internal Medicine; Visit Provider Surgery
PROC: 0DTE4ZZ Resection of Large Intestine, Percutaneous Endoscopic Approach (ICD-10-PCS; principal; 2020-03-23 07:30)
DX: D12.0 Benign neoplasm of cecum (principal); F17.210 Nicotine dependence, cigarettes, uncomplicated; Z71.6 Tobacco abuse counseling; Z20.828 Contact with and (suspected) exposure to other viral communicable diseases; Z79.1 Long term (current) use of non-steroidal anti-inflammatories (NSAID); Z79.899 Other long term (current) drug therapy
CPT/HCPCS: 36415; 80048; 85027; 86850; 86900; 86901; 87635; 88309; 88329; 93005; 99024; J0131; J1100; J2250; J2270; J2405; J3010

== ENCOUNTER → 2020-04-05 11:21 | Outpatient (BNVA) | payer MEDICARE, OTHER, SELFPAY | PROVIDERS: PCP Internal Medicine; Visit Provider Surgery | DX: D36.9 Benign neoplasm, unspecified site (principal); Z90.49 Acquired absence of other specified parts of digestive tract | CPT/HCPCS: 99212 ==

== ENCOUNTER → 2020-04-19 10:24 | Outpatient (BNVA) | payer MEDICARE, OTHER, SELFPAY | PROVIDERS: PCP Internal Medicine; Visit Provider Surgery | DX: D36.9 Benign neoplasm, unspecified site (principal); Z90.49 Acquired absence of other specified parts of digestive tract | CPT/HCPCS: 99212 ==

== ENCOUNTER 2020-09-06 09:21 | Outpatient (REF) | payer MEDICARE, OTHER, SELFPAY ==
[2020-09-06 13:41] LABS: Cholesterol 214 mg/dL; HDL Cholesterol 103 mg/dL; LDL Cholesterol Calculated 91 mg/dl; Triglycerides 103 mg/dL
== END 2020-09-06 09:22 | disposition home or self-care (01) ==
LOC: HO.HMGCLDS 09:21
PROVIDERS: PCP Internal Medicine; Visit Provider Internal Medicine
DX: E11.9 Type 2 diabetes mellitus without complications (principal)
CPT/HCPCS: 36415; 80061

== ENCOUNTER 2020-10-04 11:51 | Outpatient (REF) | payer MEDICARE, OTHER, SELFPAY ==
--- NOTE | ~2020-10-04 | XR_ITS ---
EXAMINATION: XR HIP, LEFT CLINICAL INFORMATION: Pain left hip. COMPARISON: None. TECHNIQUE: 2 views of the left hip. FINDINGS: Left hip shows no fracture, dislocation, or destructive process. There is no joint narrowing or erosive change. No definite visible chondrocalcinosis. The pubis is unremarkable. There are mild degenerative changes inferior left sacroiliac joint. XR/XR hip LT min 2V IMPRESSION: 1. Unremarkable left hip. 2. Degenerative changes inferior left sacroiliac joint.
== END 2020-10-04 11:52 | disposition home or self-care (01) ==
LOC: HO.HMGCLDS 11:51
PROVIDERS: PCP Internal Medicine; Visit Provider Internal Medicine
DX: M25.552 Pain in left hip (principal)
CPT/HCPCS: 73502

== ENCOUNTER 2020-11-30 08:41 | Outpatient (REF) | payer MEDICARE, OTHER, SELFPAY ==
[2020-11-30 11:22] LABS: MANUAL DIFF FLAG NO
[2020-11-30 11:37] LABS: Basophils Absolute Auto 0.1 X10*3/uL (0.0-0.2); Basophils Percent Auto 0.6 % (0-2); Eosinophils Absolute Auto 0.2 X10*3/uL (0.0-0.4); Eosinophils Percent Auto 1.5 % (0-4); Hematocrit 43.7 % (37-47); Hemoglobin 15.6 g/dl (12.0-16.0); Imm Gran Abs Auto 0.03 X10*3/uL (0.00-0.03); Imm Gran Pct Auto 0.3 % (0.0-0.4); Lymphocytes Absolute Auto 1.6 X10*3/uL (1.2-4.9); Lymphocytes Percent Auto 15.3 % (20-40); Mean Corpuscular HGB Conc 35.7 g/dl (31.0-35.0); Mean Corpuscular Hemoglobin 35.6 pg (27.0-33.0); Mean Corpuscular Volume 99.8 fL (80-98); Mean Platelet Volume 9.4 fL (9.4-12.3); Monocytes Absolute Auto 0.7 X10*3/uL (0.1-1.2); Monocytes Percent Auto 6.9 % (2-11); Neutrophils Absolute Auto 7.8 X10*3/uL (2.0-8.3); Neutrophils Percent Auto 75.4 % (45-73); Platelet Count 381 X10*3/uL (160-400); Red Blood Count 4.38 X10*6/uL (4.20-5.50); Red Cell Distribution Width 12.1 % (11.0-16.0); White Blood Count 10.4 X10*3/uL (4.8-10.8)
[2020-11-30 11:54] LABS: Alanine Aminotransferase 20 U/L (0-31); Albumin Level 4.7 g/dL (3.5-5.0); Alkaline Phosphatase 80 U/L (39-117); Anion Gap 16 (12-20); Aspartate Amino Transferase 20 U/L (5-31); Bilirubin Total 1.2 mg/dL (0.0-1.0); Blood Urea Nitrogen 13 mg/dL (9-16); Calcium 10.2 mg/dL (8.4-10.2); Carbon Dioxide 25 mmol/L (22-29); Chloride 100 mmol/L (96-108); Cholesterol 222 mg/dL; Estimated Glomerular Filt Rate > 60; Glucose Fasting 77 mg/dL (60-99); HDL Cholesterol 107 mg/dL; LDL Cholesterol Calculated 95 mg/dl; Potassium 3.6 mmol/L (3.3-5.1); Sodium 137 mmol/L (135-145); Total Protein 7.4 g/dL (6.5-8.0); Triglycerides 103 mg/dL
== END 2020-11-30 08:42 | disposition home or self-care (01) ==
LOC: HO.HMGCLDS 08:41
PROVIDERS: PCP Internal Medicine; Visit Provider Internal Medicine
DX: Z00.00 Encounter for general adult medical examination without abnormal findings (principal); E11.9 Type 2 diabetes mellitus without complications
CPT/HCPCS: 36415; 80053; 80061; 85025

== ENCOUNTER 2021-01-17 09:29 | Outpatient (REF) | payer MEDICARE, OTHER, SELFPAY ==
--- NOTE | ~2021-01-17 | MM_ITS ---
EXAMINATION: MM SCREENING DIGITAL BREAST TOMOSYNTHESIS, BILATERAL CLINICAL INFORMATION: Screening. Asymptomatic. The lifetime risk of breast cancer based on the Tyrer-Cuzick Model is 3%. COMPARISON: Mammography: 12/31/2019, 12/25/2018, 10/24/2017 TECHNIQUE: Digital breast tomosynthesis is performed in both the craniocaudal and mediolateral oblique views along with computer-aided detection (CAD). Synthesized 2D images are generated from the tomosynthesis. Additional left cleavage and bilateral MLO views are provided. FINDINGS: The breasts are heterogeneously dense, which may obscure small masses (ACR BI-RADS breast composition Category c). There are no significant masses, abnormal calcifications, or other abnormalities. There is no developing density or architectural abnormality. Fibroglandular distribution is similar to prior study. Skin contours are smooth. MM/MM tomosynthesis screening BI IMPRESSION: No mammographic evidence of malignancy. ASSESSMENT: BI-RADS 1: Negative RECOMMENDATION: Routine annual mammography screening. This patient's information was entered into a reminder system with a target due date for their next mammogram.
== END 2021-01-17 09:30 | disposition home or self-care (01) ==
LOC: HO.MAMMO 09:29
PROVIDERS: Visit Provider Internal Medicine
DX: Z12.31 Encounter for screening mammogram for malignant neoplasm of breast (principal)
CPT/HCPCS: 77063; 77067

== ENCOUNTER 2021-06-06 09:02 | Outpatient (REF) | payer MEDICARE, OTHER, SELFPAY ==
--- NOTE | ~2021-06-06 | MM_ITS ---
EXAMINATION: BONE DENSITOMETRY CLINICAL INDICATION: Screening. COMPARISON: Baseline BD dated 04/12/2015. TECHNIQUE: Using a [employer] DXA System (software version: 13.1) manufactured by [employer], dual-energy x-ray absorptiometry was performed of the lumbar spine and left hip. The images are of good technical quality. Summary results are attached. FINDINGS: AP SPINE L1-L4: There are degenerative changes in the lumbar spine which may cause overestimation of the lumbar bone mineral density. Current: BMD 1.116 g/cm2, Z-score 1.4, T-score -0.5, normal, 6.4% increase from baseline (<5% change is not significant). Baseline: BMD 1.049 g/cm2. LEFT FEMUR, NECK: Current: BMD 0.722 g/cm2, Z-score -0.4, T-score -2.3, osteopenia. Baseline: BMD 0.730 g/cm2. LEFT FEMUR, TOTAL: Current: BMD 0.735 g/cm2, Z-score -0.4, T-score -2.2, osteopenia, 1.9% decrease from baseline (<5% change is not significant). Baseline: BMD 0.749 g/cm2. IDENTIFIED RISK FACTORS: Menopause, history of fracture (adult), alcohol (3 or more units per day), tobacco use (current smoker). HISTORY OF FRACTURE: Wrist. MEDICATIONS: Vitamin D. MM/XR DEXA axial skeleton IMPRESSION: 1. DIAGNOSIS: Osteopenia based on the lowest T-score value of -2.3 in the femoral neck applying World Health Organization criteria. 2. 10-YEAR FRACTURE RISK PREDICTION, FRAX: Major osteoporotic fracture (clinical spine, forearm, hip or shoulder) 28.7%. Hip fracture 13.0%. 3. Treatment Recommendations: NOF guidelines recommend consideration for treatment in postmenopausal women and men age 50 and older presenting with the following: -A hip or vertebral (clinical or morphometric) fracture. -T-score less than or equal to -2.5 at the femoral neck or spine after appropriate evaluation to exclude secondary causes. -Low bone mass at the hip or spine and a 10-year fracture probability by FRAX of greater than or equal to 3% for hip fracture or greater than or equal to 20% for major osteoporotic fracture based on the [place] adapted WHO algorithm. 4. Other Recommendations: All treatment decisions require clinical judgment and consideration of individual patient factors, including patient preferences, comorbidities, previous drug use, risk factors not captured in the FRAX model (e.g. frailty, falls, vitamin D deficiency, increased bone turnover, interval significant decline in bone density) and possible under or overestimation of fracture risk by FRAX. Additional medical evaluation for secondary cause of low bone mineral density may be appropriate. FUTURE SCAN RECOMMENDATION: People with diagnosed cases of osteoporosis or at high risk for fracture should have regular bone mineral density tests. For patients eligible for Medicare, routine testing is allowed once every 2 years. The testing frequency can be increased to one year for patients who have rapidly progressing disease, those who are receiving or discontinuing medical therapy to restore bone mass, or have additional risk factors.
== END 2021-06-06 09:03 | disposition home or self-care (01) ==
LOC: HO.MAMMO 09:02
PROVIDERS: PCP Internal Medicine; Visit Provider Nurse Practitioner Family
DX: Z13.820 Encounter for screening for osteoporosis (principal); Z78.0 Asymptomatic menopausal state; M85.80 Other specified disorders of bone density and structure, unspecified site; F17.200 Nicotine dependence, unspecified, uncomplicated; Z79.899 Other long term (current) drug therapy
CPT/HCPCS: 77080

== ENCOUNTER 2021-12-08 08:23 | Outpatient (REF) | payer MEDICARE, OTHER, SELFPAY ==
[2021-12-08 11:28] LABS: MANUAL DIFF FLAG NO
[2021-12-08 11:41] LABS: Basophils Percent Auto 0.6 % (0-2); Eosinophils Absolute Auto 0.1 X10*3/uL (0.0-0.4); Eosinophils Percent Auto 1.4 % (0-4); Hemoglobin 15.9 g/dl (12.0-16.0); Imm Gran Abs Auto 0.02 X10*3/uL (0.00-0.03); Imm Gran Pct Auto 0.3 % (0.0-0.4); Lymphocytes Absolute Auto 1.4 X10*3/uL (1.2-4.9); Lymphocytes Percent Auto 18.9 % (20-40); Mean Corpuscular HGB Conc 36.1 g/dl (31.0-35.0); Mean Corpuscular Hemoglobin 36.1 pg (27.0-33.0); Mean Platelet Volume 9.4 fL (9.4-12.3); Monocytes Absolute Auto 0.5 X10*3/uL (0.1-1.2); Neutrophils Absolute Auto 5.2 x10*3/uL (2.0-8.3); Neutrophils Percent Auto 71.8 % (45-73); Platelet Count 354 X10*3/uL (160-400); Red Cell Distribution Width 12.2 % (11.0-16.0); White Blood Count 7.3 X10*3/uL (4.8-10.8)
[2021-12-08 12:22] LABS: Alanine Aminotransferase 20 U/L (0-31); Albumin Level 4.6 g/dL (3.5-5.0); Alkaline Phosphatase 78 U/L (39-117); Anion Gap 17 (12-20); Aspartate Amino Transferase 22 U/L (5-31); Blood Urea Nitrogen 8 mg/dL (9-16); Carbon Dioxide 27 mmol/L (22-29); Chloride 97 mmol/L (96-108); Cholesterol 219 mg/dL; Estimated Glomerular Filt Rate > 60; Glucose Fasting 83 mg/dL (60-99); HDL Cholesterol 107 mg/dL; LDL Cholesterol Calculated 96 mg/dl; Potassium 3.8 mmol/L (3.3-5.1); Sodium 137 mmol/L (135-145); Total Protein 7.4 g/dL (6.5-8.0); Triglycerides 80 mg/dL
== END 2021-12-08 08:24 | disposition home or self-care (01) ==
LOC: HO.HMGCLDS 08:23
PROVIDERS: PCP Internal Medicine; Visit Provider Internal Medicine
DX: Z00.00 Encounter for general adult medical examination without abnormal findings (principal); Z13.0 Encounter for screening for diseases of the blood and blood-forming organs and certain disorders involving the immune mechanism
CPT/HCPCS: 36415; 80053; 80061; 84443; 85025

== ENCOUNTER 2022-01-05 08:22 | Outpatient (REF) | payer MEDICARE, OTHER, SELFPAY ==
[2022-01-05 11:45] LABS: Cholesterol 229 mg/dL; HDL Cholesterol 107 mg/dL; LDL Cholesterol Calculated 109 mg/dl; Triglycerides 68 mg/dL
== END 2022-01-05 08:23 | disposition home or self-care (01) ==
LOC: HO.HMGCLDS 08:22
PROVIDERS: PCP Internal Medicine; Visit Provider Internal Medicine
DX: E11.9 Type 2 diabetes mellitus without complications (principal)
CPT/HCPCS: 36415; 80061

== ENCOUNTER 2022-01-11 09:29 | Outpatient (REF) | payer MEDICARE, OTHER, SELFPAY ==
[2022-01-11 12:07] LABS: Anion Gap 22 (12-20); Blood Urea Nitrogen 10 mg/dL (9-16); Calcium 10.1 mg/dL (8.4-10.2); Carbon Dioxide 26 mmol/L (22-29); Chloride 94 mmol/L (96-108); Cholesterol 227 mg/dL; Estimated Glomerular Filt Rate > 60; Glucose Random 80 mg/dL (60-115); HDL Cholesterol 108 mg/dL; LDL Cholesterol Calculated 105 mg/dl; Potassium 3.6 mmol/L (3.3-5.1); Sodium 138 mmol/L (135-145); Triglycerides 72 mg/dL
== END 2022-01-11 09:30 | disposition home or self-care (01) ==
LOC: HO.HMGCLDS 09:29
PROVIDERS: Internal Medicine; PCP Internal Medicine; Visit Provider Internal Medicine
DX: Z01.812 Encounter for preprocedural laboratory examination (principal); E78.5 Hyperlipidemia, unspecified
CPT/HCPCS: 36415; 80048; 80061

== ENCOUNTER 2022-01-17 07:58 | Outpatient (REF) | payer MEDICARE, OTHER, SELFPAY ==
--- NOTE | ~2022-01-17 | CT_ITS ---
EXAMINATION: CT SOFT TISSUE NECK WITH CONTRAST CLINICAL INFORMATION: Localized swelling. Mass and lump in neck. COMPARISON: No relevant prior imaging. TECHNIQUE: Following the intravenous administration of 60 mL of Omnipaque 350 intravenous contrast, helical imaging was performed in the axial plane with generation of coronal and sagittal reformatted images. This CT examination was performed using dose optimization techniques as appropriate, including one or more of the following: Automated exposure control, iterative reconstruction, and adjustment of technique factors (mA and/or kVp) according to patient size (this includes techniques or standardized protocols for targeted exams where dose is matched to indication/reason for exam). Fleischner Society criteria for the followup of incidental pulmonary nodules was implemented if appropriate. DLP: 227 mGy-cm. FINDINGS: Pharyngeal mucosal spaces are symmetric. Parapharyngeal and retromaxillary fat is preserved. Equipment H[employer] Manager spaces are unremarkable. The parotid and submandibular glands are normal. The tongue base and epiglottis are normal. Preepiglottic fat is preserved. Glottic and subglottic airways are patent. The thyroid gland is normal and the remainder of the visualized visceral soft tissues are normal. Lung apices are clear. The aortic arch apex is normal. There is heavily calcified atheromatous plaque causing at least 50% stenosis of the left subclavian artery at its origin. Cervical carotid and vertebral arteries are grossly patent. Internal jugular veins fill symmetrically. There is no acute osseous finding. Specifically no worrisome lytic or blastic osseous lesion. The skull base is intact. No mastoid or middle ear effusion. No active paranasal sinus disease. Limited visualization of the intracranial anatomy reveals no abnormal finding. CT/CT soft tissue neck w IV con IMPRESSION: Unremarkable examination in that there is no discrete enhancing soft tissue mass or adenopathy.
[2022-01-17] MEDS: iohexoL 350 MG/ML 100 ML INFUS..BTL 85 ML IV (08:41)
== END 2022-01-17 07:59 | disposition home or self-care (01) ==
LOC: HO.CT 07:58
PROVIDERS: PCP Internal Medicine; Visit Provider Internal Medicine
DX: R22.1 Localized swelling, mass and lump, neck (principal)
CPT/HCPCS: 70491; Q9967

== ENCOUNTER 2022-01-18 09:37 | Outpatient (REF) | payer MEDICARE, OTHER, SELFPAY ==
--- NOTE | ~2022-01-18 | MM_ITS ---
EXAMINATION: MM SCREENING DIGITAL BREAST TOMOSYNTHESIS, BILATERAL CLINICAL INFORMATION: Screening. Asymptomatic. The lifetime risk of breast cancer based on the Tyrer-Cuzick Model is 3%. COMPARISON: Mammography: 01/17/2021, 12/31/2019, 12/25/2018 TECHNIQUE: Digital breast tomosynthesis is performed in both the craniocaudal and mediolateral oblique views along with computer-aided detection (CAD). Synthesized 2D images are generated from the tomosynthesis. FINDINGS: The breasts are heterogeneously dense, which may obscure small masses (ACR BI-RADS breast composition Category c). Fibronodular parenchymal pattern is similar to prior exams. There is no developing density or interval mass or architectural abnormality. No abnormal calcifications. The axilla and skin contours are unremarkable. No significant changes. MM/MM tomosynthesis screening BI IMPRESSION: No mammographic evidence of malignancy. ASSESSMENT: BI-RADS 1: Negative RECOMMENDATION: Routine annual mammography screening. This patient's information was entered into a reminder system with a target due date for their next mammogram.
== END 2022-01-18 09:38 | disposition home or self-care (01) ==
LOC: HO.MAMMO 09:37
PROVIDERS: Visit Provider Internal Medicine
DX: Z12.31 Encounter for screening mammogram for malignant neoplasm of breast (principal)
CPT/HCPCS: 77063; 77067

== ENCOUNTER 2022-06-18 09:12 | Day surgery (SDC) | payer MEDICARE, OTHER, SELFPAY ==
--- NOTE | 2022-06-15 14:11 | P.CONAN_ITS ---
Documented by User: Malka Mejia NP 06/15/22 14:12 HPI - Anesthesia Eval Consult details Narrative: 72yo F for Colonoscopy PMFSH Active Problems Active Problems: All Active Problems (Updated 03/15/22 @ 09:24 by CARMITA Roy) Adenoma (Acute) S/P right colectomy (Acute) Post-menopausal (Acute) Adult general medical exam (Acute) Pre-procedure lab exam (Acute) Psoriasis (Acute) Screening for colon cancer (Acute) Hyperlipidemia (Acute) Hypertension (Acute) Past Medical History Medical History Elevated cholesterol History of pain when walking Hyperlipidemia Hypertension Physical exam Situational anxiety Family History Family History Father No problems noted. Mother Ovarian cancer Son Kidney malignancy Maternal Aunt Ovarian cancer Surgical History Surgical History H/O hernia repair History of colon resection History of tubal ligation Hx of colonoscopy Hx of tonsillectomy Social History Social History Household Members Other:: grandson+friend Housing: House Are you a primary infant childcare provider to a significant other at home: No Do you presently have visiting nurse or other home services: No Alcohol intake: current Alcohol intake frequency: a few times a week Alcohol type: hard liquor Patient Tobacco Use Status: Current everyday Tobacco user Tobacco use type: Cigarette Cigarette Packs Per Day: 0.5 Cigarettes Per Day: 6 Years Smoked: 30 Smoked in Last 30 Days: Yes e-Cigarette/Vaping Use: Never Used Patient Interested in Nicotine Replacement: No Second Hand Smoke Exposure: No Are you DNR?: No Advance Directives: No Advance Directives Information Provided: Yes Nutrition Risks: No Nutritional Risk service: No Current occupational status: retired Cognitive needs: No Hearing needs: No Vision needs: No Meds Allergies Allergy/AdvReac Type Severity Reaction Status Date / Time No Known Allergies Allergy Verified 06/18/22 09:24 Home Medications Medication Instructions Recorded Confirmed Last Taken Type calcium carbonate 600 mg calcium 600 mg PO DAILY 01/29/20 06/04/22 Unknown History (1,500 mg) tablet (Calcium) omega-3 fatty acids 1,000 mg 1,000 mg PO DAILY 01/29/20 06/18/22 06/14/22 History capsule (Fish Oil Concentrate) cholecalciferol (vitamin D3) 25 25 mcg PO DAILY 02/02/20 06/18/22 Unknown History mcg (1,000 unit) tablet (Vitamin D3) flaxseed 1,000 mg capsule 1,000 mg PO DAILY 02/02/20 06/18/22 03/16/20 History lactobacillus combination no.9 4 4,000 mmu cells PO DAILY 12/19/21 06/18/22 Unknown History billion cell capsule (Adult 50 Plus Probiotic) Exam Exam Date and Time: June 15, 2022 1411 Pertinent Lab Results Pertinent Lab Results: Laboratory Tests 12/08/21 01/11/22 08:32 09:42 WBC 7.3 Hgb 15.9 Hct 44.0 Plt Count 354 Sodium 138 Potassium 3.6 Chloride 94 L Carbon Dioxide 26 BUN 10 Creatinine 0.70 Assessment and Plan Assessment Anesthesia Assessment: Chart Reviewed Documented by User: Daja Howard MD 06/18/22 12:16 HPI - Anesthesia Eval Consult details Narrative: 72yo F for Colonoscopy. Patient had an episode while prepping yesterday, had some dizziness, sat down but slid off the edge of the chair and found herself on the floor when she came to. Had had some diarrhea and vomiting before. Son came to help her up. She felt fine once she sat back up, cleaned herself up. No issues. Did not hit her head. [place] a little cold in the evening from drinking the prep. ? deyration ?vasovagal episode. Feels fine today. VSS. No significant cardiac history. No similar episodes in the past. Will proceed with case. [facility] Past Medical History Medical History Elevated cholesterol History of pain when walking Hyperlipidemia Hypertension Physical exam Situational anxiety Family History Family History Father No problems noted. Mother Ovarian cancer Son Kidney malignancy Maternal Aunt Ovarian cancer Family history of problems with anesthesia: No Surgical History Surgical History H/O hernia repair History of colon resection History of tubal ligation Hx of colonoscopy Hx of tonsillectomy History of Problems with Anesthesia: No Social History Social History Household Members Other:: grandson+friend Housing: House Are you a primary infant childcare provider to a significant other at home: No Do you presently have visiting nurse or other home services: No Alcohol intake: current Alcohol intake frequency: a few times a week Alcohol type: hard liquor Patient Tobacco Use Status: Current everyday Tobacco user Tobacco use type: Cigarette Cigarette Packs Per Day: 0.5 Cigarettes Per Day: 6 Years Smoked: 30 Smoked in Last 30 Days: Yes e-Cigarette/Vaping Use: Never Used Patient Interested in Nicotine Replacement: No Second Hand Smoke Exposure: No Are you DNR?: No Advance Directives: No Advance Directives Information Provided: Yes Nutrition Risks: No Nutritional Risk service: No Current occupational status: retired Cognitive needs: No Hearing needs: No Vision needs: No Meds Allergies Allergy/AdvReac Type Severity Reaction Status Date / Time No Known Allergies Allergy Verified 06/18/22 09:24 Home Medications Medication Instructions Recorded Confirmed Last Taken Type calcium carbonate 600 mg calcium 600 mg PO DAILY 01/29/20 06/04/22 Unknown History (1,500 mg) tablet (Calcium) omega-3 fatty acids 1,000 mg 1,000 mg PO DAILY 01/29/20 06/18/22 06/14/22 History capsule (Fish Oil Concentrate) cholecalciferol (vitamin D3) 25 25 mcg PO DAILY 02/02/20 06/18/22 Unknown History mcg (1,000 unit) tablet (Vitamin D3) flaxseed 1,000 mg capsule 1,000 mg PO DAILY 02/02/20 06/18/22 03/16/20 History lactobacillus combination no.9 4 4,000 mmu cells PO DAILY 12/19/21 06/18/22 Unknown History billion cell capsule (Adult 50 Plus Probiotic) Exam Height,Weight and Vital Signs: Height 5 ft 2.5 in Weight 62.142 kg Vital Signs Temp Pulse Resp BP Pulse Ox O2 Del Method 06/18/22 11:59 97.8 F 66 16 126/64 98 Room Air 06/18/22 10:43 98.1 F 95 18 105/69 98 Room Air Airway Mallampati Class: II TM Dist: >3cm Neck ROM: Full Loose/Missing/Broken Teeth: No (Denies broken, loose, missing teeth) Heart: RRR Lungs: CTAB Assessment and Plan Assessment Anesthesia Assessment: Anesthesia Plan Discussed Final Anesthetic Review Family History of Problems with Anesthesia: No History of Problems with Anesthesia: No NPO: Yes ASA Class: II Final Preanesthetic Review: No Changes in Pt Med Stat, Meds/Allgs Chart Reviewed, Consent Obtained/Reviewed and Anes Risks/Benef Reviewed Patient Risk: Low Procedure Risk: Low Assessment/Block/Sedation in SS: Assess/Block/Sedation-SS Anesthetic Plan Anesthetic Plan: MAC: Disposition: Standard PACU
[2022-06-18 06:23] VITALS: BMI 24.6
[2022-06-18] MEDS: Lactated Ringers 1,000 ML 100 ML IVCONT (10:25)
[2022-06-18 10:43] VITALS: BP 105/69; PULSE 95; RESP 18; TEMP 36.7; O2SAT 98
--- NOTE | 2022-06-18 11:01 | PC.NURSE ---
Dr. Figueroa updated that patient stated, I passed out yesterday while drinking the prep, I woke up on the ground was incontinent and got up and cleaned myself up. Doctor stated no interventions at this time. okay to proceed. pt denies pain. vs wnl.
[2022-06-18 11:59] VITALS: BP 126/64; PULSE 66; RESP 16; TEMP 36.6; O2SAT 98
--- NOTE | 2022-06-18 12:01 | PM.OP ---
Brief Operative Note Date of Service: 06/18/22 Pre-op diagnosis: Screening, History of colon polyps Post-op diagnosis: other (Colon polyps) Procedure: Colonoscopy to the anastomosis and small bowel with bx/removal of polyps Surgeon: Edwin Morton Anesthesia: MAC Was an Histology Technologist used for this Procedure?: No Estimated blood loss (mL): 2.0 Pathology: other (A. Polyps at 50cm) Condition: stable Disposition: PACU
[2022-06-18 12:14] VITALS: BP 119/60; PULSE 62; RESP 16; O2SAT 98
[2022-06-18 12:30] VITALS: BP 139/77; PULSE 68; RESP 16; O2SAT 98
[2022-06-18 12:45] VITALS: BP 150/65; PULSE 63; RESP 16; TEMP 36.4; O2SAT 99
--- NOTE | 2022-06-18 23:29 | OP_ITS ---
SURGEON: Edwin Morton MD INDICATIONS: The patient presents for evaluation of personal history of tubular adenomas of the colon. Full consent has been obtained from her for this, including risks of bleeding and perforation. PREOPERATIVE DIAGNOSIS: POSTOPERATIVE DIAGNOSIS: PROCEDURE PERFORMED: ESTIMATED BLOOD LOSS: COMPLICATIONS: ANESTHESIA: Monitored anesthesia care. ASSISTANTS: SPECIMENS: PROCEDURE: Colonoscopy to the anastomosis and small bowel with biopsy and removal of polyps. PREOPERATIVE DIAGNOSES: Personal history of tubular adenoma of the colon and colorectal cancer screening. POSTOPERATIVE DIAGNOSES: Personal history of tubular adenoma of the colon and colorectal cancer screening, small colon polyps, diverticulosis, and internal hemorrhoids. DESCRIPTION OF PROCEDURE: The patient was placed in the left lateral decubitus position. The digital rectal exam revealed no abnormalities. The Olympus video pediatric colonoscope was then entered into the rectum and advanced to the region of the anastomosis. The small bowel was cannulated and appeared normal. The scope was withdrawn back in the colon. The entire anastomosis was well visualized and appeared normal. The scope was then slowly withdrawn. Preparation was excellent. At 50 cm were 2 flat less than 5 mm polyps, which were each biopsied and fully removed with the cold biopsy forceps. I did not visualize any other polyps, colitis nor angiodysplasia. There were hyperplastic appearing polyps noted in the rectum and these were not biopsied nor removed. There was a mild amount of sigmoid diverticulosis. In the rectum, the scope was retroflexed visualizing internal hemorrhoids but no other pathology. The rectal mucosa appeared normal. The scope was straightened and withdrawn from the patient. She tolerated the procedure well and was returned to the recovery area in stable condition. IMPRESSION: 1. Colon polyps. 2. Diverticulosis. 3. Internal hemorrhoids. 4. Normal anastomosis. PLAN: The results of the biopsies will be checked. I recommend a repeat colonoscopy in 3 years' for further surveillance. She was advised to see me again on a p.r.n. basis. MD YENNIFER Hargrove/KAYLEY / [id number] MTDJoo
== END 2022-06-18 13:01 | disposition home or self-care (01) ==
PROVIDERS: PCP Internal Medicine; Visit Provider Internal Medicine
PROC: 0DJD8ZZ Inspection of Lower Intestinal Tract, Via Natural or Artificial Opening Endoscopic (ICD-10-PCS; CPT 45378; principal; 2022-06-18 11:30)
DX: Z12.11 Encounter for screening for malignant neoplasm of colon (principal); Z86.010 Personal history of colon polyps; K63.5 Polyp of colon; K62.1 Rectal polyp; K57.30 Diverticulosis of large intestine without perforation or abscess without bleeding; K64.8 Other hemorrhoids; K59.00 Constipation, unspecified; Z90.49 Acquired absence of other specified parts of digestive tract; Z98.0 Intestinal bypass and anastomosis status; I10 Essential (primary) hypertension; E78.00 Pure hypercholesterolemia, unspecified; Z79.899 Other long term (current) drug therapy; Z79.1 Long term (current) use of non-steroidal anti-inflammatories (NSAID); Z88.8 Allergy status to other drugs, medicaments and biological substances; F17.210 Nicotine dependence, cigarettes, uncomplicated
CPT/HCPCS: 45380; 88305; J2250

== ENCOUNTER 2022-11-29 09:23 | Outpatient (REF) | payer MEDICARE, OTHER, SELFPAY ==
[2022-11-29 11:32] LABS: MANUAL DIFF FLAG NO
[2022-11-29 11:40] LABS: Basophils Percent Auto 0.4 % (0-2); Eosinophils Absolute Auto 0.1 X10*3/uL (0.0-0.4); Eosinophils Percent Auto 0.6 % (0-4); Hematocrit 44.6 % (37.0-47.0); Hemoglobin 15.8 g/dl (12.0-16.0); Imm Gran Abs Auto 0.04 X10*3/uL (0.00-0.03); Imm Gran Pct Auto 0.4 % (0.0-0.4); Lymphocytes Absolute Auto 1.4 X10*3/uL (1.2-4.9); Lymphocytes Percent Auto 13.3 % (20-40); Mean Corpuscular HGB Conc 35.4 g/dl (31.0-35.0); Mean Corpuscular Hemoglobin 36.5 pg (27.0-33.0); Mean Platelet Volume 9.4 fL (9.4-12.3); Monocytes Absolute Auto 0.6 X10*3/uL (0.1-1.2); Monocytes Percent Auto 5.9 % (2-11); Neutrophils Absolute Auto 8.2 x10*3/uL (2.0-8.3); Neutrophils Percent Auto 79.4 % (45-73); Platelet Count 322 X10*3/uL (160-400); Red Blood Count 4.33 X10*6/uL (4.20-5.50); Red Cell Distribution Width 12.4 % (11.0-16.0); White Blood Count 10.3 X10*3/uL (4.8-10.8)
[2022-11-29 12:16] LABS: Alanine Aminotransferase 17 U/L (0-31); Albumin Level 4.6 g/dL (3.5-5.0); Alkaline Phosphatase 73 U/L (39-117); Anion Gap 16 (12-20); Aspartate Amino Transferase 20 U/L (5-31); Blood Urea Nitrogen 10 mg/dL (9-16); Calcium 10.3 mg/dL (8.4-10.2); Carbon Dioxide 25 mmol/L (22-29); Chloride 102 mmol/L (96-108); Cholesterol 237 mg/dL (<200); Estimated Glomerular Filt Rate > 60; Glucose Fasting 79 mg/dL (60-99); HDL Cholesterol 112 mg/dL (>40); LDL Cholesterol Calculated 107 mg/dL (<100); Potassium 4.2 mmol/L (3.3-5.1); Sodium 139 mmol/L (135-145); Total Protein 7.6 g/dL (6.5-8.0); Triglycerides 92 mg/dL (<150)
[2022-11-29 12:33] LABS: Thyroid Stimulating Hormone 2.81 uIU/mL (0.32-4.0)
== END 2022-11-29 09:24 | disposition home or self-care (01) ==
LOC: HO.HMGCLDS 09:23
PROVIDERS: PCP Internal Medicine; Visit Provider Internal Medicine
DX: E03.9 Hypothyroidism, unspecified (principal); E78.5 Hyperlipidemia, unspecified; D64.9 Anemia, unspecified; N28.9 Disorder of kidney and ureter, unspecified
CPT/HCPCS: 36415; 80053; 80061; 84443; 85025

== ENCOUNTER 2022-12-06 08:33 | Outpatient (AMB) | payer MEDICARE, OTHER, SELFPAY ==
--- NOTE | 2022-12-06 08:58 | MHC.PC.OV ---
Vital Signs 12/06/22 08:59 Height 5 ft 2 in Weight 123 lb 2 oz BMI 22.5 BP 138/62 Blood Pressure Location Lt brachial Position Sitting Pulse 85 Pulse Source Pulse Oximeter Pulse Oximetry (%) 98 Oxygen Delivery Method Room Air Intake Visit Reasons: 6m F/U Poultry Offal Icer: Not Required per policy Accompanied by: Self / Same As Patient Allergies No Known Allergies Allergy (Verified 12/06/22 09:00) Medication List - Last Reconciled 12/06/22 by Mookie Husain MD amlodipine 5 mg PO DAILY atorvastatin 20 mg PO BEDTIME 90 days betamethasone dipropionate 0.05% 1 appl topical DAILY PRN calcium carbonate (Calcium) 600 mg PO DAILY cholecalciferol (vitamin D3) (Vitamin D3) 25 mcg PO DAILY flaxseed 1,000 mg PO DAILY hydrochlorothiazide 25 mg PO DAILY lactobacillus combination no.9 (Adult 50 Plus Probiotic) 4,000 mmu cells PO DAILY omega-3 fatty acids (Fish Oil Concentrate) 1,000 mg PO DAILY Tobacco use date assessed: 06/04/22 Fall risk assessment: No Falls in past year Last assessed Fall Risk: 12/06/22 Dental Screening Dental Screen Date: 12/06/22 Did you have a dental visit in the last 12 months?: No Did you have a dental problem in the last 6 months where you did not have access to dental care?: No Was dental information given to patient?: Patient has dentist HPI 6m F/U HPI Details HTN on Rx; doing well PFSH Medical History Physical exam Hyperlipidemia History of pain when walking Situational anxiety Elevated cholesterol Hypertension Surgical History History of colon resection Hx of tonsillectomy Hx of colonoscopy History of tubal ligation H/O hernia repair Family History (Updated 12/06/22 @ 09:01 by MARCO Woodard) Father No problems noted. Mother Ovarian cancer Son Kidney malignancy Maternal Aunt Ovarian cancer Social History Household Members Other:: grandson+friend Housing: House Are you a primary manager urgent care to a significant other at home: No Do you presently have visiting nurse or other home services: No Alcohol intake: current Alcohol intake frequency: a few times a week Alcohol type: hard liquor Patient Tobacco Use Status: Current everyday Tobacco user Tobacco use type: Cigarette Cigarette Packs Per Day: 0.5 Cigarettes Per Day: 6 Years Smoked: 30 e-Cigarette/Vaping Use: Never Used Second Hand Smoke Exposure: No service: No Current occupational status: retired Cognitive needs: No Hearing needs: No Vision needs: No Questionnaire PHQ-9 Over the last 2 weeks, how often have you been bothered by any of the following problems? 1. Little interest or pleasure in doing things: not at all 2. Feeling down, depressed, or hopeless: not at all 3. Trouble falling or staying asleep, or sleeping too much: not at all 4. Feeling tired or having little energy: not at all 5. Poor appetite or overeating: not at all 6. Feeling bad about yourself - or that you are a failure or have let yourself or your family down: not at all 7. Trouble concentrating on things, such as reading the newspaper or watching television: not at all 8. Moving or speaking so slowly that other people could have noticed. Or the opposite - being so fidgety or restless that you have been moving around a lot more than usual: not at all 9. Thoughts that you would be better off or of hurting yourself in some way: not at all Total score: 0 Depression Screening Interpretation: Negative 19081 - PHQ-9 Billing: Yes Source: Developed by Drs. Edwin Aponte, Julieta Varner, Yoandy Sevilla and colleagues, with an educational wilfred from [employer]. Thrive Questionnaire Date Thrive assessed: 06/04/22 Currently or been in a relationship where the following occur: no concerns reported AUDIT C Alcohol Use Questionnaire (AUDIT-C) 1. How often do you have a drink containing alcohol?: Never Total Score: 0 Score Reviewed/Action Taken: No OPAL-7 AMB Questionnaire OPAL-7 Date OPAL - 7 assessed: 06/04/22 Source: Developed by Drs. Edwin Aponte, Julieta Varner, Yoandy Sevilla and colleagues, with an educational wilfred from [employer]. Review of Systems Const Denies chills, Denies headache(s) and Denies weight loss ENT Denies headache(s) Card Denies chest pain, Denies syncope, Denies irregular heart rhythm and Denies dyspnea Resp Denies chest congestion, Denies cough and Denies dyspnea GI Denies abdominal pain, Denies change in stool character, Denies nausea and Denies vomiting Musc Denies deformity and Denies joint swelling Neuro Denies syncope and Denies headache(s) Physical exam (Primary Care) Vital Signs: Last Vital Signs Pulse 85 12/06/22 08:59 BP 138/62 12/06/22 08:59 Pulse Ox 98 12/06/22 08:59 Oxygen Delivery Method Room Air 12/06/22 08:59 BMI result Body Mass Index 22.5 Tobacco/Smoking Status: Tobacco use Status Tobacco use date assessed 06/04/22 12/06/22 09:05 Patient Tobacco Use Status Current everyday Tobacco 12/06/22 09:05 Tobacco use type Cigarette 12/06/22 09:05 e-Cigarette/Vaping Use Never Used 12/06/22 09:05 PHQ-9: PHQ-9 Score PHQ-9: Total score 0 12/06/22 09:05 Depression Screening Interpretation: Negative Thrive Assessment: Date of Thrive Assessment Date Thrive assessed 06/04/22 12/06/22 09:05 Currently or been in a relationship where the following occur: no concerns reported Const General: cooperative, comfortable and no acute distress Resp Effort & Inspection: normal respiratory effort Auscultation: clear to auscultation bilaterally Percussion: percussion normal Cardio Jugular venous distension: no JVD Rate: regular rate Rhythm: regular rhythm GI Inspection: Yes normal to inspection Assessment and Plan Assessment & Plan (1) Hypertension: Code(s): I10 - Essential (primary) hypertension Plan: stable; same rx (2) Hyperlipidemia: Code(s): E78.5 - Hyperlipidemia, unspecified Plan: stable; same rx Coding Level of Care Code Est Pt Level 3 (73786) Diagnoses Hypertension I10 Hyperlipidemia E78.5
[2022-12-06 08:59] VITALS: BP 138/62; PULSE 85; O2SAT 98; BMI 22.5
== END 2022-12-06 09:33 | disposition home or self-care (01) ==
PROVIDERS: PCP Internal Medicine; Visit Provider Internal Medicine
DX: I10 Essential (primary) hypertension (principal); E78.5 Hyperlipidemia, unspecified
CPT/HCPCS: 99213

== ENCOUNTER 2023-01-28 08:17 | Outpatient (REF) | payer MEDICARE, OTHER, SELFPAY | END 2023-01-28 08:18 | disposition home or self-care (01) | LOC: HO.MAMMO 08:17 | PROVIDERS: PCP Internal Medicine; Visit Provider Internal Medicine | DX: Z12.31 Encounter for screening mammogram for malignant neoplasm of breast (principal) | CPT/HCPCS: 77063; 77067 ==

== ENCOUNTER → 2023-01-28 08:45 | Outpatient (BNV) | payer MEDICARE, OTHER, SELFPAY | PROVIDERS: PCP Internal Medicine; Visit Provider Radiology Diagnostic Radiology | DX: Z12.31 Encounter for screening mammogram for malignant neoplasm of breast (principal) | CPT/HCPCS: 77063; 77067 ==

== ENCOUNTER 2023-03-19 09:16 | Outpatient (AMB) | payer MEDICARE, OTHER, SELFPAY ==
--- NOTE | 2023-03-19 09:16 | AM.OFFVISMDC ---
Intake Intake Visit Reasons: [facility] G0439. discuss/bill ACP Intake Note: Patient is here for an Annual Wellness Visit. Allergies No Known Allergies Allergy (Verified 03/19/23 09:58) Medication List - Last Reconciled 03/19/23 by CARMITA Roy amlodipine 5 mg PO DAILY atorvastatin 20 mg PO BEDTIME 90 days betamethasone dipropionate 0.05% 1 appl topical DAILY PRN calcium carbonate (Calcium) 600 mg PO DAILY cholecalciferol (vitamin D3) (Vitamin D3) 25 mcg PO DAILY flaxseed 1,000 mg PO DAILY hydrochlorothiazide 25 mg PO DAILY lactobacillus combination no.9 (Adult 50 Plus Probiotic) 4,000 mmu cells PO DAILY omega-3 fatty acids (Fish Oil Concentrate) 1,000 mg PO DAILY Fall Risk Assessment Fall risk assessment: No Falls in past year Date Fall Risk Assessed: 03/19/23 HPI [facility] G0439. discuss/bill ACP HPI Details This is a telehealth visit and patient was verified by name and date of . Patient is a 73-year-old female who presents today for subsequent wellness visit. Patient of Dr. Husain. Patient is up-to-date with her health preventative screenings and immunizations. Mammogram 12/2022 normal. Bone density screen 05/2021 with osteopenia. Colonoscopy 05/2022 with hyperplastic mucosal polyp was done by Dr. Morton. [place] of care was reviewed with the patient. Healthcare proxy and MOLST forms on file. [facility] Medical History Physical exam Hyperlipidemia History of pain when walking Situational anxiety Elevated cholesterol Hypertension Surgical History History of colon resection Hx of tonsillectomy Hx of colonoscopy History of tubal ligation H/O hernia repair Family History Father No problems noted. Mother Ovarian cancer Son Kidney malignancy Maternal Aunt Ovarian cancer Social History Household Members Other:: grandson+friend Housing: House Are you a primary manager managed care to a significant other at home: No Do you presently have visiting nurse or other home services: No Alcohol intake: current Alcohol intake frequency: a few times a week Alcohol type: hard liquor Comment: pt sleeping Patient Tobacco Use Status: Current everyday Tobacco user Tobacco use type: Cigarette Cigarette Packs Per Day: 0.5 Cigarettes Per Day: 6 Years Smoked: 30 e-Cigarette/Vaping Use: Never Used Second Hand Smoke Exposure: No service: No Current occupational status: retired Cognitive needs: No Hearing needs: No Vision needs: No Questionnaire Medicare Wellness Checkup [age] What gender do you identify with?: female During the past 4 weeks, how much have you been bothered by emotional problems such as feeling anxious, depressed, irritable, sad or downhearted, and blue?: not at all During the past 4 weeks, has your physical & emotional health limited your social activities with family, friends, neighbors, or groups?: not at all During the past 4 weeks, how much bodily pain have you generally had?: mild pain During the past 4 weeks, was someone available to help you if you needed & wanted help?: no, not at all During the past 4 weeks, what was the hardest physical activity you could do for at least 2 minutes?: very heavy Can you get to places out of walking distance without help? (For eg., can you travel alone on buses, taxis or drive your car?): Yes Can you go shopping for groceries or clothes without someone's help?: Yes Can you prepare your own meals?: Yes Can you do your housework without help?: Yes Because of any health problems, do you need the help of another person with your personal care needs such as eating, bathing, dressing or getting around the house?: No Can you handle your own money without help?: Yes During the past 4 weeks, how would you rate your health in general?: excellent During the past 4 weeks how have things been going for you?: pretty well Are you having difficulties driving your car?: yes, often (vision/disorientated ) Do you always fasten your seat belt when you are in a car?: yes, usually During past 4 weeks, have you been bothered by the following: never: Trouble eating well?, Teeth or denture problems?, Problems using the telephone? and Tiredness or fatigue? and seldom: Falling or dizzy when standing up (after doing heavy stuff ) Have you fallen 2 or more times in the past year?: No Are you afraid of falling?: No Are you a smoker?: yes, but I'm not ready to quit During the past 4 weeks, how many drinks of wine, beer, or other alcoholic beverages did you have?: 2-5 drinks per week Do you exercise for about 20 minutes 3 or more times a week?: yes, all the time Have you been given information to help with the following?: no: Hazards in your house that might hurt you? and no: Keeping track of your medications? How often do you have trouble taking medicines the way you have been told to take them?: I always take medicine as prescribed How confident are you that you can control & manage most of your health problems?: very confident What is your race?: White Mini Mental State Exam (MMSE) Orientation What is the (year) (season) (date) (day) (month)?: year, season, date, day and month Score Score: 5 Activity of Daily Living Bathing - sponge bath, tub bath or shower: receives no assistance (gets in/out by self, if usual bathing means Dressing - getting clothes from closets & drawers, including inner/outer garments & fasteners.: gets clothes & gets completely dressed without help Toileting - going to the 'toilet room' for urine/bowel elimination & cleaning self/arranging clothes: goes to toilet room, cleans self, arranges clothes without help Transfer: moves in & out of bed and chair without help (may use support object) Continence: controls urination/bowel movements completely by self Feeding: feeds self without help Total Score: 0 Information obtained from: patient Using telephone: independent Traveling: needs assistance Shopping: independent Preparing meals: independent Housework: independent Taking medicine: independent Managing money: independent PHQ-9 Over the last 2 weeks, how often have you been bothered by any of the following problems? 1. Little interest or pleasure in doing things: not at all 2. Feeling down, depressed, or hopeless: not at all 3. Trouble falling or staying asleep, or sleeping too much: not at all 4. Feeling tired or having little energy: not at all 5. Poor appetite or overeating: not at all 6. Feeling bad about yourself - or that you are a failure or have let yourself or your family down: not at all 7. Trouble concentrating on things, such as reading the newspaper or watching television: not at all 8. Moving or speaking so slowly that other people could have noticed. Or the opposite - being so fidgety or restless that you have been moving around a lot more than usual: not at all 9. Thoughts that you would be better off or of hurting yourself in some way: not at all Total score: 0 Depression Screening Interpretation: Negative Depression Screening Done: Yes 33017 - PHQ-9 Billing: Yes Source: Developed by Drs. Edwin Aponte, Julieta Varner, Yoandy Sevilla and colleagues, with an educational wilfred from [employer]. OPAL-7 AMB Questionnaire OPAL-7 Date OPAL - 7 assessed: 03/19/23 Feeling nervous, anxious, or on edge: 0 = Not at all Not being able to stop or control worryin = Not at all Worrying too much about different things: 0 = Not at all Trouble relaxin = Not at all Being so restless that it is hard to sit still: 0 = Not at all Becoming easily annoyed or irritable: 0 = Not at all Feeling afraid as if something awful might happen: 0 = Not at all Total OPAL-7 score (0-4 normal; 5-9 mild; 10-14 moderate; 15-21 severe): 0 Source: Developed by Drs. Edwin Aponte, Julieta Varner, Yoandy Sevilla and colleagues, with an educational wilfred from [employer]. OPAL-7 Assessment Billing OPAL-7 Assessment Tool: OPAL-7 Assessment 62854 AUDIT C Alcohol Use Questionnaire (AUDIT-C) 1. How often do you have a drink containing alcohol?: Never Total Score: 0 Score Reviewed/Action Taken: No Thrive Questionnaire Date Thrive assessed: 03/19/23 I am a: Patient What is your living situation today?: I have a steady place to live Within the past 12 months, did the food you bought not last and you didn't have the money to get more?: Never true Within the past 12 months, did you worry whether your food would run out before you got money to buy more?: Never true Do you have trouble paying for medicines?: No Do you have trouble getting transportation to medical appointments?: No Do you have trouble paying your heating and electricity bill?: No Do you have trouble taking care of your child, family member or friend?: No Do you have trouble with day-to-day activities such as bathing, preparing meals, shopping, managing finances, etc.?: No Are you currently unemployed and looking for a job?: No Are you interested in more education?: No Currently or been in a relationship where the following occur: no concerns reported Physical Exam Const General: cooperative and no acute distress Orientation/consciousness: patient oriented x3 HEENT Other: Whisper test: pass Neuro Other: Balance: Normal Get up and walk: able to Romberg: negative Tandem gait: able to General: patient oriented x3 Assessment & Plan Assessment & Plan (1) Adult general medical exam: Code(s): Z00.00 - Encounter for general adult medical examination without abnormal findings Plan: Repeat in 1 year (2) Hyperlipidemia: Code(s): E78.5 - Hyperlipidemia, unspecified Plan: Continue current treatment Low-cholesterol diet (3) S/P right colectomy: Code(s): Z90.49 - Acquired absence of other specified parts of digestive tract Plan: Continue to follow-up with gastroenterology (4) Hypertension: Code(s): I10 - Essential (primary) hypertension Plan: Continue current treatment Low-sodium diet Quality Reporting (2019) Fall Risk Screening ([facility] 139) Last assessed Fall Risk: 03/19/23 Fall risk assessment: No Falls in past year Depression/Bipolar (159/160/161/177) PHQ-9: Total score: 0 Telehealth Telehealth Location of provider rendering services: practice address Location of patient: address on file Patient Identification confirmed using: Name, : Yes Telehealth method: video ([phone] // iphone ) Patient verbally consented to treatment: Yes Patient verbally consented to billing insurance company: Yes Patient informed of any privacy concerns related to visit: Yes Minutes spent on Phone/Video with Pt.: 10 Coding Level of Care Code Medicare Subsequent (G0439) Diagnoses Adult general medical exam Z00.00 Hyperlipidemia E78.5 S/P right colectomy Z90.49 Hypertension I10 CPT Codes Advance Care Planning - Advance Care Planning discussion: On file, no changes ([id number]) Advance Care Planning - Time spent: 1-15 minutes, on File ([id number]) Additional Codes OPAL-7 Assessment Billing - OPAL-7 Assessment Tool: OPAL-7 Assessment 70709 ([id number]) Advance Care Planning Advance Care Planning discussion: On file, no changes Date of discussion: 03/19/23 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
== END 2023-03-19 10:38 | disposition home or self-care (01) ==
LOC: HO.HMGH 09:16
PROVIDERS: PCP Internal Medicine; Visit Provider Nurse Practitioner Family
DX: Z00.00 Encounter for general adult medical examination without abnormal findings (principal); E78.5 Hyperlipidemia, unspecified; Z90.49 Acquired absence of other specified parts of digestive tract; I10 Essential (primary) hypertension
CPT/HCPCS: 1123F; G0439

== ENCOUNTER 2023-04-29 09:03 | Outpatient (REF) | payer MEDICARE, OTHER, SELFPAY | END 2023-04-29 09:04 | disposition home or self-care (01) | LOC: HO.SH 09:03 | PROVIDERS: Visit Provider Internal Medicine | DX: Z01.118 Encounter for examination of ears and hearing with other abnormal findings (principal); H90.3 Sensorineural hearing loss, bilateral | CPT/HCPCS: 92557; 92567 ==

== ENCOUNTER 2023-06-06 08:07 | Outpatient (AMB) | payer MEDICARE, OTHER, SELFPAY ==
[2023-06-06 08:34] VITALS: BP 122/64; PULSE 88; O2SAT 98; BMI 23.0
--- NOTE | 2023-06-06 08:34 | MHC.PC.OV ---
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 Jewelry: Not Required per policy Accompanied by: Self / Same As Patient Allergies No Known Allergies Allergy (Verified 06/06/23 08:35) Medication List - Last Reconciled 06/06/23 by Mookie Husain MD amlodipine 5 mg PO DAILY atorvastatin 20 mg PO BEDTIME 90 days betamethasone dipropionate 0.05% 1 appl topical DAILY PRN calcium carbonate (Calcium) 600 mg PO DAILY cholecalciferol (vitamin D3) (Vitamin D3) 25 mcg PO DAILY flaxseed 1,000 mg PO DAILY hydrochlorothiazide 25 mg PO DAILY lactobacillus combination no.9 (Adult 50 Plus Probiotic) 4,000 mmu cells PO DAILY omega-3 fatty acids (Fish Oil Concentrate) 1,000 mg PO DAILY Tobacco use date assessed: 06/06/23 Fall risk assessment: No Falls in past year Last assessed Fall Risk: 06/06/23 Dental Screening Dental Screen Date: 06/06/23 Did you have a dental visit in the last 12 months?: No Did you have a dental problem in the last 6 months where you did not have access to dental care?: No Was dental information given to patient?: Patient has dentist HPI 6mth f/u HPI Details had a cough and congestion with some dyspnea PFSH Medical History Physical exam Hyperlipidemia History of pain when walking Situational anxiety Elevated cholesterol Hypertension Surgical History History of colon resection Hx of tonsillectomy Hx of colonoscopy History of tubal ligation H/O hernia repair Family History Father No problems noted. Mother Ovarian cancer Son Kidney malignancy Maternal Aunt Ovarian cancer Social History Household Members Other:: grandson+friend Housing: House Are you a primary care process manager to a significant other at home: No Do you presently have visiting nurse or other home services: No Alcohol intake: current Alcohol intake frequency: a few times a week Alcohol type: hard liquor Comment: pt sleeping Patient Tobacco Use Status: Current everyday Tobacco user Tobacco use type: Cigarette Cigarette Packs Per Day: 0.5 Cigarettes Per Day: 6 Years Smoked: 30 e-Cigarette/Vaping Use: Never Used Second Hand Smoke Exposure: No service: No Current occupational status: retired Cognitive needs: No Hearing needs: No Vision needs: Yes (glasses) Questionnaire PHQ-9 Over the last 2 weeks, how often have you been bothered by any of the following problems? 1. Little interest or pleasure in doing things: not at all 2. Feeling down, depressed, or hopeless: not at all 3. Trouble falling or staying asleep, or sleeping too much: not at all 4. Feeling tired or having little energy: not at all 5. Poor appetite or overeating: not at all 6. Feeling bad about yourself - or that you are a failure or have let yourself or your family down: not at all 7. Trouble concentrating on things, such as reading the newspaper or watching television: not at all 8. Moving or speaking so slowly that other people could have noticed. Or the opposite - being so fidgety or restless that you have been moving around a lot more than usual: not at all 9. Thoughts that you would be better off or of hurting yourself in some way: not at all Total score: 0 Depression Screening Interpretation: Negative Depression Screening Done: Yes 25835 - PHQ-9 Billing: Yes Source: Developed by Drs. Edwin Aponte, Julieta Varner, Yoandy Sevilla and colleagues, with an educational wilfred from [employer]. Thrive Questionnaire Date Thrive assessed: 06/06/23 I am a: Patient What is your living situation today?: I have a steady place to live Within the past 12 months, did the food you bought not last and you didn't have the money to get more?: Never true Within the past 12 months, did you worry whether your food would run out before you got money to buy more?: Never true Do you have trouble paying for medicines?: No Do you have trouble getting transportation to medical appointments?: No Do you have trouble paying your heating and electricity bill?: No Do you have trouble taking care of your child, family member or friend?: No Do you have trouble with day-to-day activities such as bathing, preparing meals, shopping, managing finances, etc.?: No Are you currently unemployed and looking for a job?: No Are you interested in more education?: No Please select the resources that you would like help with: None THRIVE Score: 0 AUDIT C Alcohol Use Questionnaire (AUDIT-C) 1. How often do you have a drink containing alcohol?: Never Total Score: 0 Score Reviewed/Action Taken: No OPAL-7 AMB Questionnaire OPAL-7 Date OPAL - 7 assessed: 06/06/23 Feeling nervous, anxious, or on edge: 0 = Not at all Not being able to stop or control worryin = Not at all Worrying too much about different things: 0 = Not at all Trouble relaxin = Not at all Being so restless that it is hard to sit still: 0 = Not at all Becoming easily annoyed or irritable: 0 = Not at all Feeling afraid as if something awful might happen: 0 = Not at all Total OPAL-7 score (0-4 normal; 5-9 mild; 10-14 moderate; 15-21 severe): 0 Source: Developed by Drs. Edwin Aponte, Julieta Varner, Yoandy Sevilla and colleagues, with an educational wilfred from [employer]. OPAL-7 Assessment Billing OPAL-7 Assessment Tool: OPAL-7 Assessment 73381 Review of Systems Const Denies chills, Denies headache(s) and Denies weight loss ENT Denies headache(s) Card Denies chest pain, Denies syncope and Denies irregular heart rhythm GI Denies abdominal pain, Denies change in stool character, Denies nausea and Denies vomiting Musc Denies deformity and Denies joint swelling Neuro Denies syncope and Denies headache(s) Physical exam (Primary Care) Vital Signs: Last Vital Signs Pulse 88 06/06/23 08:34 BP 122/64 06/06/23 08:34 Pulse Ox 98 06/06/23 08:34 Oxygen Delivery Method Room Air 06/06/23 08:34 BMI result Body Mass Index 23.0 Tobacco/Smoking Status: Tobacco use Status Tobacco use date assessed 06/06/23 06/06/23 08:35 Patient Tobacco Use Status Current everyday Tobacco 06/06/23 08:35 Tobacco use type Cigarette 06/06/23 08:35 e-Cigarette/Vaping Use Never Used 06/06/23 08:35 PHQ-9: PHQ-9 Score PHQ-9: Total score 0 06/06/23 09:07 Depression Screening Interpretation: Negative Thrive Assessment: Date of Thrive Assessment Date Thrive assessed 06/06/23 06/06/23 09:07 Const General: cooperative, comfortable, no acute distress and alert Neck Neck: Yes no lymphadenopathy Thyroid: Thyroid normal Resp Effort & Inspection: normal respiratory effort Auscultation: clear to auscultation bilaterally Percussion: percussion normal Cardio Jugular venous distension: no JVD Palpation: normal PMI Rate: regular rate Rhythm: regular rhythm Heart sounds: S1 normal heart sound present and S2 normal heart sound present GI Inspection: Yes normal to inspection Palpation (GI): No hepatosplenomegaly present Skin General skin exam: no rashes or lesions noted Extrem General: Yes no clubbing, cyanosis or edema Assessment and Plan Assessment & Plan (1) Cough: Code(s): R05.9 - Cough, unspecified Plan: improved Orders: Orders XR chest 2V Today R06.00 - Dyspnea, unspecified Coding Level of Care Code Est Pt Level 3 (17063) Diagnoses Cough R05.9 Additional Codes OPAL-7 Assessment Billing - OPAL-7 Assessment Tool: OPAL-7 Assessment 73171 ([id number])
== END 2023-06-06 09:37 | disposition home or self-care (01) ==
PROVIDERS: PCP Internal Medicine; Visit Provider Internal Medicine
DX: R05.9 Cough, unspecified (principal)
CPT/HCPCS: 99213

== ENCOUNTER 2023-06-06 09:44 | Outpatient (REF) | payer MEDICARE, OTHER, SELFPAY ==
--- NOTE | ~2023-06-06 | XR_ITS ---
EXAMINATION: XR CHEST CLINICAL INFORMATION: Dyspnea. COMPARISON: None available. TECHNIQUE: 2 views of the chest were obtained. FINDINGS: Mild hyperinflation of the lungs, raising the possibility of COPD. Question minimal blunting of the costophrenic angles posteriorly. No focal infiltrate or adenopathy is seen. The heart appears normal in size. The aorta is mildly atherosclerotic and uncoiled, suggesting hypertension. Mild thoracic levocurvature. Soft tissues appear unremarkable. XR/XR chest 2V IMPRESSION: Mild hyperinflation of the lungs, raising the possibility of COPD. Question minimal blunting of the costophrenic angles posteriorly.
== END 2023-06-06 09:45 | disposition home or self-care (01) ==
LOC: HO.XRAY 09:44
PROVIDERS: PCP Internal Medicine; Visit Provider Internal Medicine
DX: R06.00 Dyspnea, unspecified (principal)
CPT/HCPCS: 71046

== ENCOUNTER 2023-10-26 09:32 | Outpatient (AMB) | payer MEDICARE, OTHER, SELFPAY ==
--- NOTE | 2023-10-26 09:48 | MHC.OFFWIV ---
Intake Vital Signs 10/26/23 09:55 Height 5 ft 2 in Weight 122 lb BMI 22.3 BP 118/80 Blood Pressure Location Lt brachial Position Sitting Pulse 97 Pulse Source Pulse Oximeter Pulse Oximetry (%) 98 Oxygen Delivery Method Room Air Intake Visit Reasons: EP/UTI Intake Note: Patient here for UTI symptoms that have been present for about 2 weeks on and off Patient Tobacco Use Status: Current everyday Tobacco user Allergies No Known Allergies Allergy (Verified 10/26/23 10:05) Medication List - Last Reconciled 10/26/23 by Elaine Gibson, [facility]- amlodipine 5 mg PO DAILY atorvastatin 20 mg PO BEDTIME 90 days betamethasone dipropionate 0.05% 1 appl topical DAILY PRN calcium carbonate (Calcium 600) 600 mg PO DAILY cholecalciferol (vitamin D3) (Vitamin D3) 25 mcg PO DAILY flaxseed 1,000 mg PO DAILY hydrochlorothiazide 25 mg PO DAILY lactobacillus combination no.9 (Adult 50 Plus Probiotic) 4,000 mmu cells PO DAILY omega-3 fatty acids (Fish Oil Concentrate) 1,000 mg PO DAILY Do you need a note to return to daycare/school/sports/work: No HPI HPI Comments History of Present Illness Details Pleasant 69-year-old female here today with chief complaints of urinary symptoms. She reports that about 2 weeks ago she developed the since of incomplete bladder emptying, described as feeling like she needed to push to empty her bladder. This resolved on its own and was better for days. However this morning she woke up with urinary frequency. Upon review of systems, she reports that she does have transverse low back pain however this started several weeks before relative to moving a microwave. She also reports that she is cold while inside the [facility], otherwise denies fever, chills, abdominal pain, nausea, vomiting. When asked about vaginal symptoms, she reports that she is active with a new sex partner in the last year. She denies any concern for STDs. She does endorse that she was celibate for 15 years prior to this sexual relationship. She is a current everyday tobacco user Exam Awake alert oriented no acute distress Mucous membranes moist Regular rate and rhythm No CVAT bilat No suprapubic tenderness Urinalysis with leukocyte esterase and blood Plan Given the HPI in the urinalysis we will treat suspected UTI with nitrofurantoin. Labs reviewed, normal renal function. Did advise that hematuria though microscopic could be relative to tobacco use and indication of potential malignancy. Reassured that this is not likely the cause of her symptoms today however if she were to develop gross hematuria, advised of the need to follow up with her primary care for further management. Smoking cessation reviewed today. This note is constructed using voice recognition software. While every effort has been made to ensure accuracy in funeral arrangement director, still errors may have been included Sometimes, these errors may affect the content or meaning of the given sentence . [facility] Medical History Physical exam Hyperlipidemia History of pain when walking Situational anxiety Elevated cholesterol Hypertension Surgical History History of colon resection Hx of tonsillectomy Hx of colonoscopy History of tubal ligation H/O hernia repair Family History Father No problems noted. Mother Ovarian cancer Son Kidney malignancy Maternal Aunt Ovarian cancer Social History Household Members Other:: grandson+friend Housing: House Are you a primary long term care administrator to a significant other at home: No Do you presently have visiting nurse or other home services: No Alcohol intake: current Alcohol intake frequency: a few times a week Alcohol type: hard liquor Comment: pt sleeping Patient Tobacco Use Status: Current everyday Tobacco user Tobacco use type: Cigarette Cigarette Packs Per Day: 0.5 Cigarettes Per Day: 6 Years Smoked: 30 e-Cigarette/Vaping Use: Never Used Second Hand Smoke Exposure: No service: No Current occupational status: retired Cognitive needs: No Hearing needs: No Vision needs: Yes (glasses) Physical Exam Vital Signs: Last Vital Signs Pulse 97 10/26/23 09:55 BP 118/80 10/26/23 09:55 Pulse Ox 98 10/26/23 09:55 Oxygen Delivery Method Room Air 10/26/23 09:55 BMI result Body Mass Index 22.3 Results AMB Urinalysis, Automated UA Leukoctes 70 Jeanie/uL Last Edit by LEO Barber on 10/26/23 09:49 UA Nitrite Negative Last Edit by LEO Barber on 10/26/23 09:49 UA Urobilinogen 0.2 mg/dL [facility] on 10/26/23 09:49 UA Protein 15 mg/dL Last Edit [facility] on 10/26/23 09:49 UA pH 6.5 Last Edit [facility] on 10/26/23 09:49 UA Blood 80 Harvey/uL Last Edit by [facility], [facility] on 10/26/23 09:49 UA Specific [place] 1.010 Last Edit by [facility], [facility] on 10/26/23 09:49 UA Ketone Negative [facility] Edit [facility] on 10/26/23 09:49 UA Bilirubin 0 mg/dL Last Edit [facility] on 10/26/23 09:49 UA Glucose 0 mg/dL Last Edit [facility] on 10/26/23 09:49 Results Reviewed Results Reviewed: Laboratory Last Values Urine pH (Auto) 6.5 10/26/23 09:48 Specific [place] (Auto) 1.010 10/26/23 09:48 Urine Protein (Auto) 15 mg/dL 10/26/23 09:48 Glucose (UA)(Auto) 0 mg/dL 10/26/23 09:48 Urine Ketones (Auto) Negative 10/26/23 09:48 Urine Blood (Auto) 80 Harvey/uL 10/26/23 09:48 Urine Nitrite (Auto) Negative 10/26/23 09:48 Urine Bilirubin (Auto) 0 mg/dL 10/26/23 09:48 Urine Urobilinogen (Auto) 0.2 mg/dL 10/26/23 09:48 Leukocyte Esterase (Auto) 70 Jeanie/uL 10/26/23 09:48 Assessment & Plan Assessment & Plan (1) UTI (urinary tract infection): Code(s): N39.0 - Urinary tract infection, site not specified Qualifiers: Urinary tract infection type: acute cystitis Hematuria presence: with hematuria Qualified Code(s): N30.01 - Acute cystitis with hematuria Plan: . (2) Tobacco dependence: Comment: . Code(s): F17.200 - Nicotine dependence, unspecified, uncomplicated Plan: . Plan . Orders: Orders AMB Urinalysis Automated Today Z13.9 - Encounter for screening, unspecified Medications: New nitrofurantoin monohyd/m-cryst 100 mg must administer with a meal/food 100 mg PO Q12H 5 days 10 caps 0RF Coding Level of Care Code Est Pt Level 4 (76187) Diagnoses Acute cystitis with hematuria N30.01 Urinary tract infection type: acute cystitis Hematuria presence: with hematuria Tobacco dependence F17.200
[2023-10-26 09:55] VITALS: BP 118/80; PULSE 97; O2SAT 98; BMI 22.3
== END 2023-10-26 10:52 | disposition home or self-care (01) ==
PROVIDERS: PCP Internal Medicine; Visit Provider Nurse Practitioner Family
DX: N30.01 Acute cystitis with hematuria (principal); F17.200 Nicotine dependence, unspecified, uncomplicated; Z13.9 Encounter for screening, unspecified
CPT/HCPCS: 81003; 99214

== ENCOUNTER 2023-12-24 10:27 | Outpatient (REF) | payer MEDICARE, OTHER, SELFPAY ==
[2023-12-24 13:14] LABS: MANUAL DIFF FLAG NO
[2023-12-24 13:31] LABS: Basophils Absolute Auto 0.1 X10*3/uL (0.0-0.2); Basophils Percent Auto 0.4 % (0-2); Eosinophils Percent Auto 0.3 % (0-4); Hematocrit 43.6 % (37.0-47.0); Hemoglobin 15.8 g/dl (12.0-16.0); Imm Gran Abs Auto 0.04 X10*3/uL (0.00-0.03); Imm Gran Pct Auto 0.3 % (0.0-0.4); Lymphocytes Absolute Auto 1.8 X10*3/uL (1.2-4.9); Lymphocytes Percent Auto 12.9 % (20-40); Mean Corpuscular HGB Conc 36.2 g/dl (31.0-35.0); Mean Corpuscular Hemoglobin 35.5 pg (27.0-33.0); Mean Platelet Volume 9.1 fL (9.4-12.3); Monocytes Absolute Auto 0.7 X10*3/uL (0.1-1.2); Neutrophils Absolute Auto 11.1 x10*3/uL (2.0-8.3); Neutrophils Percent Auto 81.1 % (45-73); Platelet Count 446 X10*3/uL (160-400); Red Blood Count 4.45 X10*6/uL (4.20-5.50); Red Cell Distribution Width 11.9 % (11.0-16.0); White Blood Count 13.6 X10*3/uL (4.8-10.8)
[2023-12-24 14:09] LABS: Alanine Aminotransferase 17 U/L (0-31); Albumin Level 4.4 g/dL (3.5-5.0); Alkaline Phosphatase 89 U/L (39-117); Anion Gap 14 (12-20); Aspartate Amino Transferase 20 U/L (5-31); Blood Urea Nitrogen 10 mg/dL (9-16); Calcium 9.5 mg/dL (8.4-10.2); Carbon Dioxide 28 mmol/L (22-29); Chloride 99 mmol/L (96-108); Cholesterol 194 mg/dL (<200); Estimated Glomerular Filt Rate > 60; Glucose Fasting 89 mg/dL (60-99); HDL Cholesterol 90 mg/dL (>40); LDL Cholesterol Calculated 91 mg/dL (<100); Potassium 3.5 mmol/L (3.3-5.1); Sodium 137 mmol/L (135-145); Thyroid Stimulating Hormone 2.59 uIU/mL (0.32-4.0); Total Protein 7.6 g/dL (6.5-8.0); Triglycerides 69 mg/dL (<150)
== END 2023-12-24 10:28 | disposition home or self-care (01) ==
LOC: HO.HMGCLDS 10:27
PROVIDERS: PCP Internal Medicine; Visit Provider Internal Medicine
DX: Z13.0 Encounter for screening for diseases of the blood and blood-forming organs and certain disorders involving the immune mechanism (principal); Z13.29 Encounter for screening for other suspected endocrine disorder; Z13.220 Encounter for screening for lipoid disorders; Z13.9 Encounter for screening, unspecified
CPT/HCPCS: 36415; 80053; 80061; 84443; 85025

== ENCOUNTER 2023-12-31 10:23 | Outpatient (AMB) | payer MEDICARE, OTHER, SELFPAY ==
--- NOTE | 2023-12-31 10:23 | MHC.PC.OV ---
Vital Signs 12/31/23 10:24 Height 5 ft 2 in Weight 127 lb BMI 23.2 BP 128/80 Blood Pressure Location Lt brachial Position Sitting Pulse 114 H Pulse Source Pulse Oximeter Pulse Oximetry (%) 96 Oxygen Delivery Method Room Air Intake Visit Reasons: follow up on BP Intake Note: Patient wants to discuss possibly having low blood sugar due to her cold hands. Manager Chemical Required: No Accompanied by: Self / Same As Patient Allergies No Known Allergies Allergy (Verified 12/31/23 10:26) Medication List - Last Reconciled 12/31/23 by Mookie Husain MD amlodipine 5 mg PO DAILY atorvastatin 20 mg PO BEDTIME 90 days betamethasone dipropionate 0.05% 1 appl topical DAILY PRN calcium carbonate (Calcium 600) 600 mg PO DAILY cholecalciferol (vitamin D3) (Vitamin D3) 25 mcg PO DAILY flaxseed 1,000 mg PO DAILY hydrochlorothiazide 25 mg PO DAILY lactobacillus combination no.9 (Adult 50 Plus Probiotic) 4,000 mmu cells PO DAILY nitrofurantoin monohyd/m-cryst 100 mg 100 mg PO Q12H 5 days omega-3 fatty acids (Fish Oil Concentrate) 1,000 mg PO DAILY Tobacco use date assessed: 06/06/23 Fall risk assessment: 1 Fall in past year (Tripped on the cat) Last assessed Fall Risk: 12/31/23 Dental Screening Dental Screen Date: 06/06/23 HPI follow up on BP HPI Details HTN on Rx; doing well and comliant PFSH Medical History Physical exam Hyperlipidemia History of pain when walking Situational anxiety Elevated cholesterol Hypertension Surgical History History of colon resection Hx of tonsillectomy Hx of colonoscopy History of tubal ligation H/O hernia repair Family History Father No problems noted. Mother Ovarian cancer Son Kidney malignancy Maternal Aunt Ovarian cancer Social History Household Members Other:: grandson+friend Housing: House Are you a primary childcare provider to a significant other at home: No Do you presently have visiting nurse or other home services: No Alcohol intake: current Alcohol intake frequency: a few times a week Alcohol type: hard liquor Comment: pt sleeping Patient Tobacco Use Status: Current everyday Tobacco user Tobacco use type: Cigarette Cigarette Packs Per Day: 0.5 Cigarettes Per Day: 6 Years Smoked: 30 e-Cigarette/Vaping Use: Never Used Second Hand Smoke Exposure: No service: No Current occupational status: retired Cognitive needs: No Hearing needs: No Vision needs: Yes (glasses) Questionnaire PHQ-9 Over the last 2 weeks, how often have you been bothered by any of the following problems? 1. Little interest or pleasure in doing things: not at all 2. Feeling down, depressed, or hopeless: not at all 3. Trouble falling or staying asleep, or sleeping too much: not at all 4. Feeling tired or having little energy: not at all 5. Poor appetite or overeating: not at all 6. Feeling bad about yourself - or that you are a failure or have let yourself or your family down: not at all 7. Trouble concentrating on things, such as reading the newspaper or watching television: not at all 8. Moving or speaking so slowly that other people could have noticed. Or the opposite - being so fidgety or restless that you have been moving around a lot more than usual: not at all 9. Thoughts that you would be better off or of hurting yourself in some way: not at all Total score: 0 Depression Screening Interpretation: Negative Depression Screening Done: Yes 70786 - PHQ-9 Billing: Yes Source: Developed by Drs. Edwin Aponte, Yoandy Ace and colleagues, with an educational wilfred from [employer]. Thrive Questionnaire Date Thrive assessed: 06/06/23 Are you currently unemployed and looking for a job?: Yes AUDIT C Alcohol Use Questionnaire (AUDIT-C) 1. How often do you have a drink containing alcohol?: Never Total Score: 0 Score Reviewed/Action Taken: No OPAL-7 AMB Questionnaire OPAL-7 Date OPAL - 7 assessed: 06/06/23 Source: Developed by Drs. Edwin Aponte, Yoandy Ace and colleagues, with an educational wilfred from [employer]. Review of Systems Const Denies chills, Denies headache(s) and Denies weight loss ENT Denies headache(s) Card Denies chest pain, Denies syncope, Denies irregular heart rhythm and Denies dyspnea Resp Denies chest congestion, Denies cough and Denies dyspnea GI Denies abdominal pain, Denies change in stool character, Denies nausea and Denies vomiting Musc Denies deformity and Denies joint swelling Neuro Denies syncope and Denies headache(s) Physical exam (Primary Care) Vital Signs: Last Vital Signs Pulse 114 H 12/31/23 10:24 BP 128/80 12/31/23 10:24 Pulse Ox 96 12/31/23 10:24 Oxygen Delivery Method Room Air 12/31/23 10:24 BMI result Body Mass Index 23.2 Tobacco/Smoking Status: Tobacco use Status Tobacco use date assessed 06/06/23 12/31/23 10:29 Patient Tobacco Use Status Current everyday Tobacco 12/31/23 10:29 Tobacco use type Cigarette 12/31/23 10:29 e-Cigarette/Vaping Use Never Used 12/31/23 10:29 PHQ-9: PHQ-9 Score PHQ-9: Total score 0 12/31/23 10:30 Depression Screening Interpretation: Negative Thrive Assessment: Date of Thrive Assessment Date Thrive assessed 06/06/23 12/31/23 10:29 Const General: cooperative, comfortable, no acute distress and alert Neck Neck: Yes no lymphadenopathy Thyroid: Thyroid normal Resp Effort & Inspection: normal respiratory effort Auscultation: clear to auscultation bilaterally Percussion: percussion normal Cardio Jugular venous distension: no JVD Palpation: normal PMI Rate: regular rate Rhythm: regular rhythm Heart sounds: S1 normal heart sound present and S2 normal heart sound present GI Inspection: Yes normal to inspection Palpation (GI): No hepatosplenomegaly present Skin General skin exam: no rashes or lesions noted Extrem General: Yes no clubbing, cyanosis or edema Coding Level of Care Code Est Pt Level 3 (81708) Diagnoses Hypertension I10 Assessment & Plan Assessment & Plan (1) Hypertension: Code(s): I10 - Essential (primary) hypertension Category: Medical Plan: stable; same rx
[2023-12-31 10:24] VITALS: BP 128/80; PULSE 114; O2SAT 96; BMI 23.2
== END 2023-12-31 10:52 | disposition home or self-care (01) ==
PROVIDERS: PCP Internal Medicine; Visit Provider Internal Medicine
DX: I10 Essential (primary) hypertension (principal)

== ENCOUNTER → 2023-12-31 10:23 | Outpatient (BNVA) | payer MEDICARE, OTHER, SELFPAY | PROVIDERS: PCP Internal Medicine; Visit Provider Internal Medicine | DX: I10 Essential (primary) hypertension (principal) | CPT/HCPCS: 99212 ==

== ENCOUNTER 2024-02-04 12:40 | Outpatient (REF) | payer MEDICARE, OTHER, SELFPAY ==
--- NOTE | ~2024-02-04 | MM_ITS ---
EXAMINATION: MM SCREENING DIGITAL BREAST TOMOSYNTHESIS, BILATERAL CLINICAL INFORMATION: Screening. Asymptomatic. COMPARISON: Mammography: Comparison is made with available priors TECHNIQUE: Digital breast mammography with tomosynthesis is performed in both the craniocaudal and mediolateral oblique views along with computer-aided detection (CAD). FINDINGS: The breasts are heterogeneously dense, which may obscure small masses (ACR BI-RADS breast composition Category c). There are no significant masses, abnormal calcifications, or other abnormalities. MM/MM tomosynthesis screening BI IMPRESSION: No mammographic evidence of malignancy. ASSESSMENT: BI-RADS BI-RADS 1 - Negative RECOMMENDATION: Routine annual mammography screening. 1 year F/U This examination should not preclude the clinical evaluation of a suspicious palpable abnormality. This patient's information was entered into a reminder system with a target due date for their next mammogram. Electronically signed by: Petra Mcqueen DO 02/12/2024 01:52 PM RYAN
== END 2024-02-04 12:41 | disposition home or self-care (01) ==
LOC: HO.MAMMO 12:40
PROVIDERS: PCP Internal Medicine; Visit Provider Internal Medicine
DX: Z12.31 Encounter for screening mammogram for malignant neoplasm of breast (principal)
CPT/HCPCS: 77063; 77067

== ENCOUNTER → 2024-02-04 13:00 | Outpatient (BNV) | payer MEDICARE, OTHER, SELFPAY | PROVIDERS: PCP Internal Medicine; Visit Provider Internal Medicine | DX: Z12.31 Encounter for screening mammogram for malignant neoplasm of breast (principal) | CPT/HCPCS: 77063; 77067 ==

== ENCOUNTER 2024-05-04 08:41 | Outpatient (AMB) | payer MEDICARE, OTHER, SELFPAY ==
[2024-05-04 09:00] VITALS: BP 128/72; PULSE 82; O2SAT 95; BMI 23.0
--- NOTE | 2024-05-04 09:00 | MHC.PC.OV ---
Vital Signs 05/04/24 09:00 Height 5 ft 2 in Weight 126 lb BMI 23.0 BP 128/72 Blood Pressure Location Lt brachial Position Sitting Pulse 82 Pulse Source Pulse Oximeter Pulse Oximetry (%) 95 Oxygen Delivery Method Room Air Intake Visit Reasons: 4mth f/u Allergies No Known Allergies Allergy (Verified 05/04/24 09:00) Medication List - Last Reconciled 05/04/24 by Mookie Husain MD albuterol sulfate 90 mcg/actuation 2 puffs PO Q6H PRN amlodipine 5 mg PO DAILY atorvastatin 20 mg PO BEDTIME 90 days betamethasone dipropionate 0.05% 1 appl topical DAILY PRN calcium carbonate (Calcium 600) 600 mg PO DAILY cholecalciferol (vitamin D3) (Vitamin D3) 25 mcg PO DAILY flaxseed 1,000 mg PO DAILY hydrochlorothiazide 25 mg PO DAILY lactobacillus combination no.9 (Adult 50 Plus Probiotic) 4,000 mmu cells PO DAILY naproxen (Naprosyn) 500 mg PO BID PRN omega-3 fatty acids (Fish Oil Concentrate) 1,000 mg PO DAILY Tobacco use date assessed: 05/04/24 Fall risk assessment: 1 Fall in past year Last assessed Fall Risk: 05/04/24 Dental Screening Dental Screen Date: 05/04/24 Did you have a dental visit in the last 12 months?: Yes Did you have a dental problem in the last 6 months where you did not have access to dental care?: No Was dental information given to patient?: Patient has dentist HPI 4mth f/u HPI Details HTN on rx; doing well and coopliant PFSH Medical History Physical exam Hyperlipidemia History of pain when walking Situational anxiety Elevated cholesterol Hypertension Surgical History History of colon resection Hx of tonsillectomy Hx of colonoscopy History of tubal ligation H/O hernia repair Family History Father No problems noted. Mother Ovarian cancer Son Kidney malignancy Maternal Aunt Ovarian cancer Social History Household Members Other:: grandson+friend Housing: House Are you a primary chiropractic care to a significant other at home: No Do you presently have visiting nurse or other home services: No Alcohol intake: current Alcohol intake frequency: a few times a week Alcohol type: hard liquor Comment: pt sleeping Patient Tobacco Use Status: Current everyday Tobacco user Tobacco use type: Cigarette Cigarette Packs Per Day: 0.5 Cigarettes Per Day: 5 Years Smoked: 30 Packs Per Year: 15 Packs per year/per ci.50 e-Cigarette/Vaping Use: Never Used Second Hand Smoke Exposure: No service: No Current occupational status: retired Cognitive needs: No Hearing needs: No Vision needs: Yes (glasses) Questionnaire PHQ-9 Over the last 2 weeks, how often have you been bothered by any of the following problems? 1. Little interest or pleasure in doing things: not at all 2. Feeling down, depressed, or hopeless: not at all 3. Trouble falling or staying asleep, or sleeping too much: not at all 4. Feeling tired or having little energy: not at all 5. Poor appetite or overeating: not at all 6. Feeling bad about yourself - or that you are a failure or have let yourself or your family down: not at all 7. Trouble concentrating on things, such as reading the newspaper or watching television: not at all 8. Moving or speaking so slowly that other people could have noticed. Or the opposite - being so fidgety or restless that you have been moving around a lot more than usual: not at all 9. Thoughts that you would be better off or of hurting yourself in some way: not at all Total score: 0 Depression Screening Interpretation: Negative Depression Screening Done: Yes 52813 - PHQ-9 Billing: Yes Source: Developed by Drs. Edwin Aponte, Julieta Varner, Yoandy Sevilla and colleagues, with an educational wilfred from [employer]. Thrive Questionnaire Date Thrive assessed: 05/04/24 I am a: Patient What is your living situation today?: I have a steady place to live Within the past 12 months, did the food you bought not last and you didn't have the money to get more?: Never true Within the past 12 months, did you worry whether your food would run out before you got money to buy more?: Never true Do you have trouble paying for medicines?: No Do you have trouble getting transportation to medical appointments?: No Do you have trouble taking care of your child, family member or friend?: No Do you have trouble with day-to-day activities such as bathing, preparing meals, shopping, managing finances, etc.?: No Are you currently unemployed and looking for a job?: No Are you interested in more education?: No Currently or been in a relationship where the following occur: No concerns reported THRIVE Score: 0 AUDIT C Alcohol Use Questionnaire (AUDIT-C) 1. How often do you have a drink containing alcohol?: Never Total Score: 0 Score Reviewed/Action Taken: No OPAL-7 AMB Questionnaire OPAL-7 Date OPAL - 7 assessed: 05/04/24 Feeling nervous, anxious, or on edge: 0 = Not at all Not being able to stop or control worryin = Not at all Worrying too much about different things: 0 = Not at all Trouble relaxin = Not at all Being so restless that it is hard to sit still: 0 = Not at all Becoming easily annoyed or irritable: 0 = Not at all Feeling afraid as if something awful might happen: 0 = Not at all Total OPAL-7 score (0-4 normal; 5-9 mild; 10-14 moderate; 15-21 severe): 0 Source: Developed by Drs. Edwin Aponte, Julieta Varner, Yoandy Sevilla and colleagues, with an educational wilfred from [employer]. Review of Systems Const Denies chills, Denies headache(s) and Denies weight loss ENT Denies headache(s) Card Denies chest pain, Denies syncope, Denies irregular heart rhythm and Denies dyspnea Resp Denies chest congestion, Denies cough and Denies dyspnea GI Denies abdominal pain, Denies change in stool character, Denies nausea and Denies vomiting Musc Denies deformity and Denies joint swelling Neuro Denies syncope and Denies headache(s) Physical exam (Primary Care) Vital Signs: Last Vital Signs Pulse 82 05/04/24 09:00 BP 128/72 05/04/24 09:00 Pulse Ox 95 05/04/24 09:00 Oxygen Delivery Method Room Air 05/04/24 09:00 BMI result Body Mass Index 23.0 Tobacco/Smoking Status: Tobacco use Status Tobacco use date assessed 05/04/24 05/04/24 09:05 Patient Tobacco Use Status Current everyday Tobacco 05/04/24 09:05 Tobacco use type Cigarette 05/04/24 09:05 e-Cigarette/Vaping Use Never Used 05/04/24 09:05 PHQ-9: PHQ-9 Score PHQ-9: Total score 0 05/04/24 09:05 Depression Screening Interpretation: Negative Thrive Assessment: Date of Thrive Assessment Date Thrive assessed 05/04/24 05/04/24 09:05 Currently or been in a relationship where the following occur: No concerns reported Const General: cooperative, comfortable, no acute distress and alert Neck Neck: Yes no lymphadenopathy Thyroid: Thyroid normal Resp Effort & Inspection: normal respiratory effort Auscultation: clear to auscultation bilaterally Percussion: percussion normal Cardio Jugular venous distension: no JVD Palpation: normal PMI Rate: regular rate Rhythm: regular rhythm Heart sounds: S1 normal heart sound present and S2 normal heart sound present GI Inspection: Yes normal to inspection Palpation (GI): No hepatosplenomegaly present Skin General skin exam: no rashes or lesions noted Extrem General: Yes no clubbing, cyanosis or edema Coding Level of Care Code Est Pt Level 3 (28349) Diagnoses Hypertension I10 Additional Codes PHQ-9 - 37762 - PHQ-9 Billing: Yes ([id number]) Assessment & Plan Assessment & Plan (1) Hypertension: Code(s): I10 - Essential (primary) hypertension Category: Medical Plan: stable; same rx
== END 2024-05-04 09:23 | disposition home or self-care (01) ==
PROVIDERS: PCP Internal Medicine; Visit Provider Internal Medicine
DX: I10 Essential (primary) hypertension (principal)

== ENCOUNTER → 2024-05-04 08:41 | Outpatient (BNVA) | payer MEDICARE, OTHER, SELFPAY | PROVIDERS: PCP Internal Medicine; Visit Provider Internal Medicine | DX: I10 Essential (primary) hypertension (principal) | CPT/HCPCS: 96127; 99212 ==

== ENCOUNTER 2024-09-01 08:14 | Outpatient (REF) | payer MEDICARE, OTHER, SELFPAY ==
--- NOTE | ~2024-09-01 | XR_ITS ---
CLINICAL HISTORY: M54.50 - Low back pain, unspecified 3 views lumbar spine Comparison: None Findings: There is mild lower lumbar spine dextroscoliosis. No acute fractures or dislocation. There is multilevel disc space narrowing. Multilevel osteophyte formation. There is osteopenia. There is sclerosis left hip and/or acetabulum likely degenerative cannot exclude AVN. IMPRESSION: Multilevel spondylosis, no acute fractures. Osteopenia. Subchondral sclerosis left hip likely degenerative cannot exclude AVN. This document has been electronically signed by: Edwin Street MD on 09/02/2024 08:41:09
--- NOTE | ~2024-09-01 | XR_ITS ---
CLINICAL HISTORY: M25.552 - Pain in left hip 2 view left hip Comparison: None Findings: The bones are intact. There is osteopenia. No significant arthritic change. There are atherosclerotic arterial vascular calcifications. IMPRESSION: No acute fractures Osteopenia Atherosclerotic arterial vascular calcifications correlate clinically This document has been electronically signed by: Edwin Street MD on 09/02/2024 06:24:03
[2024-09-01 10:29] LABS: MANUAL DIFF FLAG NO
[2024-09-01 11:15] LABS: Basophils Absolute Auto 0.1 X10*3/uL (0.0-0.2); Basophils Percent Auto 0.6 % (0-2); Eosinophils Absolute Auto 0.1 X10*3/uL (0.0-0.4); Eosinophils Percent Auto 0.7 % (0-4); Hematocrit 44.3 % (37.0-47.0); Hemoglobin 15.6 g/dl (12.0-16.0); Imm Gran Abs Auto 0.03 X10*3/uL (0.00-0.03); Imm Gran Pct Auto 0.3 % (0.0-0.4); Lymphocytes Absolute Auto 1.5 X10*3/uL (1.2-4.9); Lymphocytes Percent Auto 13.8 % (20-40); Mean Corpuscular HGB Conc 35.2 g/dl (31.0-35.0); Mean Corpuscular Hemoglobin 35.3 pg (27.0-33.0); Mean Corpuscular Volume 100.2 fL (80.0-98.0); Mean Platelet Volume 9.3 fL (9.4-12.3); Monocytes Absolute Auto 0.6 X10*3/uL (0.1-1.2); Monocytes Percent Auto 5.4 % (2-11); Neutrophils Absolute Auto 8.5 x10*3/uL (2.0-8.3); Neutrophils Percent Auto 79.2 % (45-73); Platelet Count 386 X10*3/uL (160-400); Red Blood Count 4.42 X10*6/uL (4.20-5.50); Red Cell Distribution Width 12.4 % (11.0-16.0); White Blood Count 10.7 X10*3/uL (4.8-10.8)
[2024-09-01 11:50] LABS: Alanine Aminotransferase 20 U/L (0-31); Albumin Level 4.9 g/dL (3.5-5.0); Alkaline Phosphatase 99 U/L (39-117); Anion Gap 18 (12-20); Aspartate Amino Transferase 30 U/L (5-31); Bilirubin Total 0.8 mg/dL (0.0-1.0); Blood Urea Nitrogen 12 mg/dL (9-16); Calcium 10.1 mg/dL (8.4-10.2); Carbon Dioxide 27 mmol/L (22-29); Chloride 102 mmol/L (96-108); Cholesterol 223 mg/dL (<200); Estimated Glomerular Filt Rate > 60; Glucose Random 71 mg/dL (60-115); HDL Cholesterol 107 mg/dL (>40); LDL Cholesterol Calculated 101 mg/dL (<100); Potassium 3.7 mmol/L (3.3-5.1); Sodium 143 mmol/L (135-145); Total Protein 7.9 g/dL (6.5-8.0); Triglycerides 76 mg/dL (<150)
[2024-09-01 12:13] LABS: Free T4 (Free Thyroxine) 0.92 ng/dL (0.71-1.85); Vitamin D 25-OH Total 34.9 ng/mL (>30)
[2024-09-01 12:22] LABS: Folate 10.7 ng/mL (> or = 4.0); Vitamin B12 406 pg/mL (200-900)
== END 2024-09-01 08:15 | disposition home or self-care (01) ==
LOC: HO.XRAY 08:14
PROVIDERS: PCP Internal Medicine
DX: E78.5 Hyperlipidemia, unspecified (principal); L40.9 Psoriasis, unspecified; R14.0 Abdominal distension (gaseous); I10 Essential (primary) hypertension; M54.50 Low back pain, unspecified; M25.552 Pain in left hip; J30.2 Other seasonal allergic rhinitis; F17.210 Nicotine dependence, cigarettes, uncomplicated; Z79.899 Other long term (current) drug therapy; Z00.00 Encounter for general adult medical examination without abnormal findings; Z13.21 Encounter for screening for nutritional disorder
CPT/HCPCS: 36415; 72100; 73502; 80053; 80061; 82306; 82607; 82746; 84439; 84443; 85025; 96127; 99212

== ENCOUNTER 2024-09-01 08:14 | Outpatient (AMB) | payer MEDICARE, OTHER, SELFPAY ==
--- NOTE | 2024-09-01 08:55 | A.OFFPC_ITS ---
Vital Signs 09/01/24 08:56 Height 5 ft 2 in Weight 132 lb BMI 24.1 BP 130/82 Blood Pressure Location Lt brachial Position Sitting Pulse 75 Pulse Source Pulse Oximeter Temp 97.4 F Temp Source Temporal Artery Scan Pulse Oximetry (%) 98 Oxygen Delivery Method Room Air Intake Visit Reasons: DIPTI Dr Husain Wood Machine Carver Required: No Accompanied by: Self / Same As Patient Allergies No Known Allergies Allergy (Verified 09/01/24 09:34) Medication List - Last Reconciled 09/01/24 by Miya Purdy PA-C albuterol sulfate 90 mcg/actuation 2 puffs PO Q6H PRN amlodipine 5 mg PO DAILY atorvastatin 20 mg PO BEDTIME 90 days betamethasone dipropionate 0.05% 1 appl topical DAILY PRN calcium carbonate (Calcium 600) 600 mg PO DAILY cholecalciferol (vitamin D3) (Vitamin D3) 25 mcg PO DAILY flaxseed 1,000 mg PO DAILY hydrochlorothiazide 25 mg PO DAILY lactobacillus combination no.9 (Adult 50 Plus Probiotic) 4,000 mmu cells PO DAILY naproxen (Naprosyn) 500 mg PO BID PRN omega-3 fatty acids (Fish Oil Concentrate) 1,000 mg PO DAILY Tobacco use date assessed: 05/04/24 Fall risk assessment: No Falls in past year Last assessed Fall Risk: 09/01/24 Dental Screening Dental Screen Date: 05/04/[address] Husain HPI Details 74-year-old female with past medical his tory of hypertension, hyperlipidemia, psoriasis and tobacco dependence last seen 05/[address] Husain coming in for transfer care. Presenting with transfer of care for multiple ongoing chronic conditions including seasonal allergic rhinitis, osteoarthritis, gastrointestinal postoperative complications, and psoriasis. Longstanding history of seasonal allergies, exacerbated recently, with restrictions on antihistamine use due to elevated blood pressure. Reports of recurrent abdominal bloating post a significant resection surgery in the gastrointestinal tract involving the large and small intestine, with occasional need for suppositories. She takes daily probiotic to regulate bowel movements. Manifestation of hip pain due to osteoarthritis affecting mobility and daily activities, and engagement in regular exercise. Psoriasis affecting scalp and confirmed diagnosis of tobacco use disorder with reduced daily smoking despite discussions about further cessation. [facility] Medical History Physical exam Hyperlipidemia History of pain when walking Situational anxiety Elevated cholesterol Hypertension Surgical History History of colon resection Hx of tonsillectomy Hx of colonoscopy History of tubal ligation H/O hernia repair Family History Father No problems noted. Mother Ovarian cancer Son Kidney malignancy Maternal Aunt Ovarian cancer Social History Household Members Other:: grandson+friend Housing: House Are you a primary rn intensive care unit to a significant other at home: No Do you presently have visiting nurse or other home services: No Alcohol intake: current Alcohol intake frequency: a few times a week Alcohol type: hard liquor Comment: pt sleeping Patient Tobacco Use Status: Current everyday Tobacco user Tobacco use type: Cigarette Cigarette Packs Per Day: 0.5 Cigarettes Per Day: 5 Years Smoked: 30 e-Cigarette/Vaping Use: Never Used Second Hand Smoke Exposure: No service: No Current occupational status: retired Cognitive needs: No Hearing needs: No Vision needs: Yes (glasses) Questionnaire PHQ-9 Over the last 2 weeks, how often have you been bothered by any of the following problems? 1. Little interest or pleasure in doing things: not at all 2. Feeling down, depressed, or hopeless: not at all 3. Trouble falling or staying asleep, or sleeping too much: not at all 4. Feeling tired or having little energy: more than half the days 5. Poor appetite or overeating: not at all 6. Feeling bad about yourself - or that you are a failure or have let yourself or your family down: not at all 7. Trouble concentrating on things, such as reading the newspaper or watching television: not at all 8. Moving or speaking so slowly that other people could have noticed. Or the opposite - being so fidgety or restless that you have been moving around a lot more than usual: more than half the days 9. Thoughts that you would be better off or of hurting yourself in some way: not at all Total score: 4 Depression Screening Interpretation: Positive Depression Screening Done: Yes Source: Developed by Drs. Edwin Aponte, Julieta Varner, Yoandy Sevilla and colleagues, with an educational wilfred from [employer]. Thrive Questionnaire Date Thrive assessed: 05/04/24 I am a: Patient What is your living situation today?: I have a steady place to live Within the past 12 months, did the food you bought not last and you didn't have the money to get more?: Never true Within the past 12 months, did you worry whether your food would run out before you got money to buy more?: Never true Do you have trouble paying for medicines?: No Do you have trouble getting transportation to medical appointments?: No Do you have trouble paying your heating and electricity bill?: No Do you have trouble taking care of your child, family member or friend?: No Do you have trouble with day-to-day activities such as bathing, preparing meals, shopping, managing finances, etc.?: No Are you currently unemployed and looking for a job?: No Are you interested in more education?: No Please select the resources that you would like help with: None Currently or been in a relationship where the following occur: No concerns reported THRIVE Score: 0 AUDIT C Alcohol Use Questionnaire (AUDIT-C) 1. How often do you have a drink containing alcohol?: 4 or more times a week 2. How many drinks containing alcohol do you have on a typical day when you are drinking?: 1 or 2 3. How often do you have six or more drinks on one occasion?: Never Total Score: 4 OPAL-7 AMB Questionnaire OPAL-7 Date OPAL - 7 assessed: 05/04/24 Feeling nervous, anxious, or on edge: 0 = Not at all Not being able to stop or control worryin = More than half the days Worrying too much about different things: 1 = Several days Trouble relaxin = Not at all Being so restless that it is hard to sit still: 2 = More than half the days Becoming easily annoyed or irritable: 0 = Not at all Feeling afraid as if something awful might happen: 0 = Not at all Total OPAL-7 score (0-4 normal; 5-9 mild; 10-14 moderate; 15-21 severe): 5 Source: Developed by Drs. Edwin Aponte, Yoandy Aceoenke and colleagues, with an educational wilfred from [employer]. Review of Systems Const Denies body aches, Denies chills, Denies fever(s), Denies headache(s) and Denies poor appetite Eyes Reports no additional complaints ENT Denies dizziness and Denies headache(s) Card Denies chest pain, Denies irregular heart rhythm, Denies lightheadedness and Denies dyspnea Resp Denies cough and Denies dyspnea GI Denies abdominal pain, Denies belching, Denies melena, Reports bloating, Denies hematochezia, Reports constipation (occasional), Reports excessive flatus, Denies diarrhea, Denies nausea and Denies vomiting Reports no additional complaints Musc Reports no additional complaints and Denies abnormal gait Skin/Breast Reports system reviewed and no additional complaints, except as documented Neuro Denies abnormal gait, Denies dizziness and Denies headache(s) Psych Reports no additional complaints Physical exam (Primary Care) Vital Signs: Last Vital Signs Temp 97.4 F 09/01/24 08:56 Pulse 75 09/01/24 08:56 BP 130/82 09/01/24 08:56 Pulse Ox 98 09/01/24 08:56 Oxygen Delivery Method Room Air 09/01/24 08:56 BMI result Body Mass Index 24.1 Tobacco/Smoking Status: Tobacco use Status Tobacco use date assessed 05/04/24 09/01/24 08:58 Patient Tobacco Use Status Current everyday Tobacco 09/01/24 08:58 Tobacco use type Cigarette 09/01/24 08:58 e-Cigarette/Vaping Use Never Used 09/01/24 08:58 PHQ-9: PHQ-9 Score PHQ-9: Total score 4 09/01/24 08:58 Depression Screening Interpretation: Positive Thrive Assessment: Date of Thrive Assessment Date Thrive assessed 05/04/24 09/01/24 08:58 Currently or been in a relationship where the following occur: No concerns reported Const General: cooperative, healthy appearing, comfortable and no acute distress Orientation/consciousness: patient oriented x3 HENMT Head: Yes normocephalic Ears: hearing grossly normal bilaterally General nose exam: Normal external nose present Eyes General: appearance normal, both eyes and all related structures Conjunctivae: conjunctivae normal Neck Neck: Yes full ROM and Yes no lymphadenopathy Resp Effort & Inspection: normal respiratory effort Auscultation: clear to auscultation bilaterally, no crackles, no rales, no rhonchi and no wheezes Cardio Rate: regular rate Rhythm: regular rhythm Back/Spine/Pelvis Other: tenderness to palpation of lumbar spine and left hip Skin General skin exam: no rashes or lesions noted Neuro General: patient oriented x3 Gait exam (Neuro): Normal gait present Extrem General: Yes normal to inspection, Yes full ROM and No edema Psych Affect: normal affect Attitude: cooperative Insight: Good insight present (Psych) Judgement: Good judgement present (Psych) Coding Level of Care Code Est Pt Level 4 (13359) Diagnoses Tobacco dependence F17.200 Psoriasis L40.9 Hyperlipidemia E78.5 Bloating R14.0 Hypertension I10 Low back pain M54.50 Left hip pain M25.552 Seasonal allergies J30.2 Assessment & Plan Assessment & Plan (1) Tobacco dependence: Comment: . Code(s): F17.200 - Nicotine dependence, unspecified, uncomplicated Category: Medical Plan: Smoking cigarettes and the use of tobacco can be harmful. We discussed the importance of stopping and options to aid in smoking cessation. Has been cutting back because of her living situation. Not interested in smoking cessation at this time. Declines lung cancer screening program today. (2) Psoriasis: Code(s): L40.9 - Psoriasis, unspecified Category: Medical Plan: History of being seen by dermatology but has not been seen in many years. She is looking to re-establish with dermatology and referral was placed to [facility] p[facility] today. (3) Hyperlipidemia: Code(s): E78.5 - Hyperlipidemia, unspecified Category: Medical Plan: Avoid foods that are high in cholesterol such as red meat, fried foods, eggs and baked goods. Triglyceride goal of less than 150 and LDL goal of less than 100. Continue on atorvastatin 20. Ordered for updated blood work. (4) Bloating: Code(s): R14.0 - Abdominal distension (gaseous) Category: Medical Plan: Patient reports high amounts of flatus recommend low FOD-MAP diet to avoid foods that are difficult to digest. Prescription also sent for Simethicone to use as needed for gas and distention. Not change in bowel caliber or color and denies abdominal pain. (5) Hypertension: Code(s): I10 - Essential (primary) hypertension Category: Medical Plan: Continue on current blood pressure medication. Avoid salt intake and encourage healthy diet and regular exercise. (6) Low back pain: Code(s): M54.50 - Low back pain, unspecified Category: Medical Plan: Patient reporting low back/hip pain worse with walking and worse when constipated. Plan to obtain lumbar spine XR and left hip XR for further evaluation. Consider ortho referral. Patient declining PT eval today. (7) Left hip pain: Code(s): M25.552 - Pain in left hip Category: Medical Plan: see above (8) Seasonal allergies: Code(s): J30.2 - Other seasonal allergic rhinitis Category: Medical Plan: prescription for claritin sent to pharmacy. Plan During this visit, I recommended non-sedative antihistamines such as Claritin for seasonal allergies, given concerns about hypertension. The patient was advised to manage bloating using simethicone and dietary modifications. An x-ray was planned to assess left hip osteoarthritis, potentially indicating surgical options in the future but prioritizing contemporary evaluation. Dermatological concerns, including psoriasis management, were advised to follow up through referral for potential systemic treatment. Despite reduced tobacco use, cessation was not pursued. Screening tests for osteoporosis were put into motion, and education focused on diet management for lactose intolerance and bloating was provided. Follow-up reviews, dietary advice, and the introduction to alternative management strategies for chronic conditions were thoroughly discussed. This note was constructed using voice recognition software. While every effort has been made to ensure accuracy and city plant supervisor, still areas may have been included sometimes these areas may affect the content or meeting of the given symptoms. Total time spent caring for the patient today was 30 minutes. This includes time spent before the visit reviewing the chart, time spent during the visit, and time spent after the visit and documentation. Patient was informed and verbally consented to the use of an ambient scribe for clinic note documentation during this visit. Orders: Orders XR hip LT min 2V Today M25.552 - Pain in left hip XR lumbar spine 2-3V Today M54.50 - Low back pain, unspecified TSH reflex Free T4 Today I10 - Essential (primary) hypertension, Z00.00 - Encounter for general adult medical examination without abnormal findings Free T4 (Free Thyroxine) Today I10 - Essential (primary) hypertension, Z00.00 - Encounter for general adult medical examination without abnormal findings Complete Blood Count Auto Diff Today I10 - Essential (primary) hypertension, Z 00.00 - Encounter for general adult medical examination without abnormal findings Lipid Panel Today E78.00 - Pure hypercholesterolemia, unspecified XR DEXA axial skeleton Today Z78.0 - Asymptomatic menopausal state Vitamin B12 and Folate Today I10 - Essential (primary) hypertension, Z13.21 - Encounter for screening for nutritional disorder Vitamin D 25-OH Total Today I10 - Essential (primary) hypertension, Z00.00 - Encounter for general adult medical examination without abnormal findings Comprehensive Met. Panel Today I10 - Essential (primary) hypertension, Z00.00 - Encounter for general adult medical examination without abnormal findings Referrals Dermatology Referral L40.9 - Psoriasis, unspecified Medications: New loratadine (Claritin) 10 mg PO DAILY 90 tabs 0RF simethicone (Gas Relief (simethicone)) 180 mg PO DAILY 30 caps 0RF
[2024-09-01 08:56] VITALS: BP 130/82; PULSE 75; TEMP 36.3; O2SAT 98; BMI 24.1
== END 2024-09-01 09:53 | disposition home or self-care (01) ==
DX: F17.200 Nicotine dependence, unspecified, uncomplicated (principal); L40.9 Psoriasis, unspecified; E78.5 Hyperlipidemia, unspecified; R14.0 Abdominal distension (gaseous); I10 Essential (primary) hypertension; M54.50 Low back pain, unspecified; M25.552 Pain in left hip; J30.2 Other seasonal allergic rhinitis

== ENCOUNTER → 2024-09-01 10:06 | Outpatient (BNV) | payer MEDICARE, OTHER, SELFPAY | PROVIDERS: PCP Internal Medicine; Visit Provider Radiology Diagnostic Radiology | DX: M85.88 Other specified disorders of bone density and structure, other site (principal); M47.816 Spondylosis without myelopathy or radiculopathy, lumbar region; M24.152 Other articular cartilage disorders, left hip | CPT/HCPCS: 72100; 73502 ==

== ENCOUNTER → 2024-09-24 09:30 | Outpatient (BNV) | payer MEDICARE, OTHER, SELFPAY | PROVIDERS: Visit Provider Radiology Diagnostic Radiology | DX: S73.192A Other sprain of left hip, initial encounter (principal) | CPT/HCPCS: 73721 ==

== ENCOUNTER 2024-09-24 09:56 | Outpatient (REF) | payer MEDICARE, OTHER, SELFPAY ==
--- NOTE | ~2024-09-24 | MR_ITS ---
EXAMINATION: MR HIP WITHOUT CONTRAST, LEFT EXAMINATION: MRI of the left hip was performed without contrast TECHNIQUE: Multiplanar multisequence MR imaging through a lower extremity joints was performed without contrast INDICATION: Left hip pain, some chondral sclerosis on x-ray, evaluate for AVN Prior: X-ray from September 01, 2024 FINDINGS: Labrum: Intermediate signal undercuts the anterior labrum at 9:00 - 10:00. Labrum appears intact otherwise. Articular Cartilage/Joint fluid: There is a deep partial versus full-thickness fissure in the articular cartilage of the superficial gluteal region of the femoral head. There is adjacent reactive marrow signal. Ligament/Muscle/Tendon: Ligament of teres is intact. There is minimal peritendinous fluid signal around the distal gluteus medius tendon. There is mild tendinopathy in the proximal left hamstring tendon. Neurovascular: Major neurovascular structures are unremarkable and symmetrical. Deep and superficial soft tissues: There is no intrapelvic mass or ascites. Visualized bowel is grossly unremarkable. Subcutaneous soft tissues are within normal limits. There is no adenopathy. Bones/Marrow: There is mild dextroscoliosis and lateral listhesis in the lumbar spine. Mild reactive marrow signal and low signal change is present in the lower SI joints. There are osteophytes. Pubic symphysis joint is unremarkable. MR/MR hip LT wo con IMPRESSION: No evidence of AVN. Superior left hip labral tear at 9-10:00. Focal deep partial to full-thickness fissure in the articular cartilage of the medial left femoral head, in the suprafoveal region. Mild to moderate degenerative changes in the left SI joint. Tendinopathy involving distal left gluteus medius and proximal left hamstring tendons. Electronically signed by: Irineo Leggett MD 09/24/2024 11:19 AM EDT
--- OUTSIDE RECORDS SUMMARY | 2024-09-24 11:24 | XMS_ITS | Patient Health Record ---
[facility] Address [address] [place] [address] Care Team Providers Care [employer] Air[employer] Officer Name Role Phone Rodrigue ZHANG, Mookie Primary Care Provider Unavaila Jonathan Kumar Unavailable [phone] Reason For Referral No Information Medications Medication SIG (Take, Route, Fr equency, Duration) Notes Start Date End Date Status hydroCHLOROthiazide Active Fish Oil Active Probiotic Active Vitamin B Complex Ac tive Problems No Known Problems Plan Of Treatment Pending Test Test Name Order Date [id number] Destruction, -11/12/2014 [id number] Destruction, 04-1412/03/2014 [id number] Destruction, 04-1412/31/2014 Insurance Providers Payer Name Payer Address Payer Phone Subscriber Number Group Number Insured Name Patient Relationship to Insured Coverage Start Date Coverage End Date Medicare [employer] [address] [place] [address] [id number] Julieta Green Self - patient is the insured Patients Know Best Plan [address] [place] [phone] [id number] Julieta Green Self - patient is the insured Medical (General) History Medical History History ICD Code Chicken pox High blood pressure Measles Mumps Psoriasis/eczema Surgical History Surgery Date(Month/Year) tonsillectomy hernia
== END 2024-09-24 09:57 | disposition home or self-care (01) ==
LOC: HO.MRI 09:56
DX: M16.12 Unilateral primary osteoarthritis, left hip (principal)
CPT/HCPCS: 73721

== ENCOUNTER 2024-10-08 09:35 | Outpatient (REF) | payer MEDICARE, OTHER, SELFPAY ==
--- NOTE | ~2024-10-08 | MM_ITS ---
EXAMINATION: DXA BONE DENSITY AXIAL HISTORY: Z78.0 - Asymptomatic menopausal state TECHNIQUE: Bellabeat Dual energy absorptiometry (DEXA) of the lumbar spine, total right hip, and femoral neck was performed. COMPARISON: Comparison is made with the prior examinations dated 06/06/2021 and 04/12/2015. FINDINGS: The bone mineral density of the lumbar spine is 1.086 g/cm2, corresponding to a T-score of -0.8, and a Z-score of 1.2. This is indicative of normal bone mineral density. This represents a BMD change of -2.7% compared to the prior exam. This is statistically significant. The bone mineral density of the right total hip is 0.686 g/cm2, corresponding to a T-score of -2.6, and a Z-score of -0.7. This is indicative of osteoporosis. This represents a BMD change of -6.7% compared to the prior exam. This is statistically significant. The bone mineral density of the right femoral neck is 0.694 g/cm2, corresponding to a T-score of -2.5, and a Z-score of -0.4. This is indicative of osteoporosis. This represents a BMD change of -2.1% compared to the prior exam. MM/XR DEXA axial skeleton IMPRESSION: Based on bone mineral density, and according to World Health Organization (WHO) criteria, the diagnosis is consistent with osteoporosis. Statistically, 68% of repeat scans fall within 1 SD (+/- 0.010 g/cm2 for AP spine L1-L4) and 1 SD (+/- 0.012 g/cm2 for femur total) FRAX is a trademark of the [employer]'s [employer] Metabolic Bone Disease, a World Health Organization (WHO) Collaborating Center. Electronically signed by: Edwin Carrion MD 10/08/2024 10:35 AM EDT
--- OUTSIDE RECORDS SUMMARY | 2024-10-08 10:07 | XMS_ITS | Patient Health Record ---
[facility] Address [address] [place] [address] Care Team Providers Care Nurse Tech Name Role Phone Rodrigue ZHANG, Mookie Primary Care Provider Unavaila Jonathan Kumar Unavailable [phone] Reason For Referral No Information Medications Medication SIG (Take, Route, Fr equency, Duration) Notes Start Date End Date Status hydroCHLOROthiazide Active Fish Oil Active Probiotic Active Vitamin B Complex Ac tive Problems No Known Problems Plan Of Treatment Pending Test Test Name Order Date [id number] Destruction, -11/12/2014 [id number] Destruction, 04-1412/03/2014 [id number] Destruction, 04-1412/31/2014 Insurance Providers Payer Name Payer Address Payer Phone Subscriber Number Group Number Insured Name Patient Relationship to Insured Coverage Start Date Coverage End Date Medicare National [employer] [address] [place] [address] [phone] [id number] Julieta Green Self - patient is the insured 5by Plan [address] [place] [address] [id number] Julieta Green Self - patient is the insured Medical (General) History Medical History History ICD Code Chicken pox High blood pressure Measles Mumps Psoriasis/eczema Surgical History Surgery Date(Month/Year) tonsillectomy hernia
--- OUTSIDE RECORDS SUMMARY | 2024-10-08 10:07 | XMS_ITS | Patient Health Record ---
Author Organization [facility] Address [address] [place] [address] Care Team Providers Care Yarn Skeins Examiner Name Role Phone Mookie uHsain MD Primary Care Provider Edwin Heller Unavailable [phone] Allergies Allergen (clinical drug ingredient) Drug/Non Drug Allergy documented on EMR Reaction Allergy Type Onset Date Status acetaminophen Tylenol hyperactivity Drug Allergy Active Reason For Referral No Information Medications Medication SIG (Take, Route, Frequency, Duration) Notes Start Date End Date Status Align Active Vitamin D-3 Active amLODIPine Besylate Active Atorvastatin Calcium Active Naproxen as needed Active Flaxseed (Linseed) A ctive Fish Oil Active hydroCHLOROthiazide 25 MG 1 tablet Orally Once a day Active Calcium Citrate Acti ve Immunizations Vaccine Route Administration Date Status Comme nts Flu vaccine no Preserv 3 and > Unknown 12/30/2013 Admin istered Influenza Unknown 11/04/2019 Administered Influenza Unknown 11/30/2021 Administered Social History Tobacco Use: Social History Observation Description Date Details (start date - stop date) Current Smoker NA - NA Tobacco Use/Smoking Question Answer Notes Patient is a current smoker How many cigarettes a day do you smoke? 6-10 How soon after you wake up d o you smoke your first cigarette? 6-30 minutes Are you interested in quitting? Not ready to claude t Additional Findings: Tobacco User Light cigarett e smoker ((1-9 cigs/day) Alcohol Screen Question Answer Notes Did you have a drink contain ing alcohol in the past year? Yes How often did you have a dri nk containing alcohol in the past year? 4 or more times a week (4 points) How many drinks did you have on a typical day when you were drinking in the past year? 1 or 2 drinks (0 point) How often did you have 6 or more drinks on one occasion in the past year? Never (0 point) Points 4 Interpretation Positive Section Notes: Smoker 6 cigarettes per day; 1 drink Q PM Smoker 6 cigarettes per day; 1 drink Q PM Smoker 6 cigarettes per day; 1 drink Q PM Smoker 6 cigarettes per day; 1 drink Q PM Smoker 6 cigarettes per day; 1 drink Q PM Problems Problem Type SNOMED Code ICD Code Onset Dates Problem Status W/U Status Risk Notes Problem 588699901 Encounter for screening for malignant neoplasm of colon (Z12.11) Active confirmed Problem 274910720 History of adenomatous polyp of colon (Z86.010) Active confirmed Problem 115546048 Personal history of colonic polyps (Z86.010) Active confirmed Problem Diverticulosis o f large intestine without perforation or abscess without bleeding (K57.30) Active confirmed Problem History of gastrointestinal tract bypass (822069516) Intestinal bypass and anastomosis status (Z98.0) Active confirmed Problem 143957411134169 Preprocedural examination (Z01.818) Active confirmed Problem 24778439 Constipation, unspecified constipation type (K59.00) Active confirmed Problem Benign neoplasm of colon (16867658) Colon adenoma (D12.6) Active confirmed Problem 885786095 NSAID long-term use (Z79.1) Active confirmed Plan Of Treatment Pending Test Test Name Order Date Pathology 06/18/2022 Future Test Test Name Order Date COLONOSCOPY 08/31/2014 COLONOSCOPY 12/23/2019 COLONOSCOPY 05/01/2022 Insurance Providers Payer Name Payer Address Payer Phone Subscriber Number Group Number Insured Name Patient Relationship to Insured Coverage Start Date Coverage End Date MEDICARE OF [place] [address] [facility] [place] [address] [id number] ALEJANDRO MANUEL Self - patient is the insured [facility] [address] [place] [address] [id number] ALEJANDRO MANUEL Self - patient is the insured Medical (General) History Medical History History ICD Code Denies [place],DM,CVA,Lung disease,renal dise ase [address] Jakob sykes--1st one had some polyps removed--the most recent exam was in approx 2009 and she received a colon recall letter from Dr. Mayo HTN Hyperlipidemia Negative colonoscopy in 10/2014 Screening colonoscopy in Jan revealed a flat adenomatous lesion along the ileocecal valve that was not removed endoscopically. She was referred to Dr. Martinez for surgical evaluation. Had surgery as below. Surgical History Surgery Date(Month/Year) Tonsillectomy Right inginal hernia Tubal ligation Cecal resection with ileocolectomy for a sessile adenoma on the [facility] 03/2020
== END 2024-10-08 09:36 | disposition home or self-care (01) ==
LOC: HO.MAMMO 09:35
DX: Z13.820 Encounter for screening for osteoporosis (principal); Z78.0 Asymptomatic menopausal state
CPT/HCPCS: 77080

== ENCOUNTER → 2024-10-08 10:00 | Outpatient (BNV) | payer MEDICARE, OTHER, SELFPAY | PROVIDERS: Visit Provider Radiology Diagnostic Radiology | DX: E28.39 Other primary ovarian failure (principal) | CPT/HCPCS: 77080 ==

== ENCOUNTER 2024-12-01 08:04 | Outpatient (AMB) | payer MEDICARE, OTHER, SELFPAY ==
--- NOTE | 2024-12-01 08:12 | A.OFFVIS_ITS ---
Vital Signs 12/01/24 08:14 Height 5 ft 1.06 in Weight 136 lb 7.458 oz BMI 25.7 BP 124/72 Blood Pressure Location Lt brachial Position Sitting Pulse 75 Pulse Source Pulse Oximeter Pulse Oximetry (%) 96 Oxygen Delivery Method Room Air Intake Visit Reasons: Age-related osteoporosis without current pathologi Intake Note: New patient internally referred by PCP for Age-related Osteoporosis, last DEXA was on 10/08/2024. 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 Accompanied by: Self / Same As Patient Allergies No Known Allergies Allergy (Verified 12/01/24 08:15) Medication List - Last Reconciled 12/01/24 by Edwin Cain MD albuterol sulfate 90 mcg/actuation 2 puffs PO Q6H PRN amlodipine 5 mg PO DAILY atorvastatin 40 mg PO DAILY betamethasone dipropionate 0.05% 1 appl topical DAILY PRN calcium citrate 500 mg PO BID cholecalciferol (vitamin D3) (Vitamin D3) 25 mcg PO DAILY flaxseed 1,000 mg PO DAILY hydrochlorothiazide 25 mg PO DAILY lactobacillus combination no.9 (Adult 50 Plus Probiotic) 4,000 mmu cells PO DAILY loratadine (Claritin) 10 mg PO DAILY naproxen (Naprosyn) 500 mg PO BID PRN omega-3 fatty acids (Fish Oil Concentrate) 1,000 mg PO DAILY simethicone (Gas Relief (simethicone)) 180 mg PO DAILY HPI Comments Details: The patient is a 74-year-old female presenting with osteoporosis. She was diagnosed with osteoporosis this year, although she did not have it last year. There is a family history of osteoporosis, with relatives affected as early as age 50. The patient has not received any pharmacological treatment for osteoporosis but takes calcium citrate supplements. 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 She has been involved in this class for eight years. The patient reported a crack in her hip diagnosed two months ago, following an MRI. She believes it has healed, although she has an upcoming appointment with an orthopedic surgeon. She has been avoiding stairs and other activities that might exacerbate the condition. The patient has a history of a wrist fracture from a fall, which occurred several years ago. Additionally, she fractured her left arm six years ago after tripping over a cord, which healed within a month. She smokes four to five cigarettes a day and consumes a couple of alcoholic drinks each night. She has no plans to quit smoking, citing weight gain concerns. The patient maintains a diet that excludes processed foods and includes a va riety of vegetables. She takes 1000 mg of calcium citrate daily and ensures adequate vitamin D intake through supplements.The patient maintains a diet that excludes processed foods and includes a variety of vegetables. She avoids Panamanian cheese and processed foods, opting instead for natural sources of calcium such as vegetables and dried figs. She takes 1000 mg of calcium citrate daily and ensures adequate vitamin D intake through supplements. First diagnosed in just diagnosed . Not Received treatment in the past history of pathologic fracture in L arm after tripping on a cord but no ONJ. Has several servings of dietary calcium per day in the form of figs , cheese . Takes Calcium citrate supplement 1000 mg daily in divided doses. Takes ? IU of Vitamin D daily. - Calcium citrate: Taken for osteoporosis, 1000 mg daily - Vitamin D: Included in calcium supplement, dosage not specified Denies ever using PPI, anticoagulant, antiepileptic or glucocorticoid medication. Does weight bearing exercise 4 days per week in the form of better bones and balance . 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 hip fracture. adentulous . No planned upcoming dental work or extractions. Tabacco use 4-5 cigs/day . Couple of drinks/night DXA dated 10/08/24 :FINDINGS: The bone mineral density of the lumbar spine is 1.086 g/cm2, corresponding to a T-score of -0.8, and a Z-score of 1.2. This is indicative of normal bone mineral density. This represents a BMD change of -2.7% compared to the prior exam. This is statistically significant. The bone mineral density of the right total hip is 0.686 g/cm2, corresponding to a T-score of -2.6, and a Z-score of -0.7. This is indicative of osteoporosis. This represents a BMD change of -6.7% compared to the prior exam. This is statistically significant. The bone mineral density of the right femoral neck is 0.694 g/cm2, corresponding to a T-score of -2.5, and a Z-score of -0.4. This is indicative of osteoporosis. This represents a BMD change of -2.1% compared to the prior exam. MM/XR DEXA axial skeleton IMPRESSION: Based on bone mineral density, and according to World Health Organization (WHO) criteria, the diagnosis is consistent with osteoporosis. Labs: [facility] Medical History Physical exam Hyperlipidemia History of pain when walking Situational anxiety Elevated cholesterol Hypertension Surgical History History of colon resection Hx of tonsillectomy Hx of colonoscopy History of tubal ligation H/O hernia repair Family History Father No problems noted. Mother Ovarian cancer Son Kidney malignancy Maternal Aunt Ovarian cancer Social History Household Members Other:: grandson+friend Housing: House Are you a primary personal care attendant to a significant other at home: No Do you presently have visiting nurse or other home services: No Alcohol intake: current Alcohol intake frequency: a few times a week Alcohol type: hard liquor Comment: pt sleeping Patient Tobacco Use Status: Current everyday Tobacco user Tobacco use type: Cigarette Cigarette Packs Per Day: 0.5 Cigarettes Per Day: 5 Years Smoked: 30 e-Cigarette/Vaping Use: Never Used Second Hand Smoke Exposure: No service: No Current occupational status: retired Cognitive needs: No Hearing needs: No Vision needs: Yes (glasses) Physical Exam Vital Signs: Last Vital Signs Pulse 75 12/01/24 08:14 BP 124/72 12/01/24 08:14 Pulse Ox 96 12/01/24 08:14 Oxygen Delivery Method Room Air 12/01/24 08:14 BMI result Body Mass Index 25.7 There are no Cushingoid features. Absence of blue sclera. Absence of kyphosis. Thyroid gland is of nl size and weighs 15 gms. There are no thyroid nodules palpated. Lungs CTA. Heart S1 S2 Reg R/R Abdominal exam benign. Muscle strength 5/5 . Examination of spine reveals absence of tenderness on palpation Assessment & Plan Assessment & Plan (1) Osteoporosis: Code(s): M81.0 - Age-related osteoporosis without current pathological fracture Category: Medical Plan: This is a 74-year-old white female with a history of osteoporosis with partial secondary workup. Plan is to complete the secondary workup by doing a 24 hour urine for calcium and creatinine, phosphorus level, urine immunofixation. Will ensure 1200 mg of calcium and continued vitamin-D supplementation. Assuming secondary workup was negative, could consider treatment with anti resorptive agent like oral or intravenous bisphosphonate. We will look an orthopedic note once patient has orthopedic appointment next few days 1. Osteoporosis The patient was recently diagnosed with osteoporosis. She has not received pharmacological treatment but takes calcium citrate and vitamin D supplements. A workup including blood and urine tests has been initiated to rule out secondary causes. The patient is advised to maintain a calcium intake of 1200 mg daily through diet and supplements. Consideration for pharmacologic therapy such as alendronate will be made upon follow-up. 2. Hip fracture The patient reported a crack in her hip diagnosed two months ago. She is scheduled to see an orthopedic surgeon for further evaluation. No acute fractures were noted on the recent x-ray. She is advised to avoid activities that may exacerbate the condition. 4. Wrist fracture The patient has a history of a wrist fracture from a fall. This history contributes to her risk profile for osteoporosis-related fractures. 5. Smoking and alcohol use The patient smokes four to five cigarettes daily and consumes alcohol nightly. She is advised on the negative impact of smoking and alcohol on bone health and encouraged to consider cessation to reduce fracture risk. I discussed with the patient the diagnosis of osteoporosis and the importance of calcium and vitamin D supplementation. We reviewed the potential need for pharmacologic therapy such as alendronate in the future. I explained the difference between osteoporosis and osteoarthritis, emphasizing that osteoporosis itself is not painful. We discussed the impact of smoking and alcohol on bone health and the benefits of cessation. I advised her to continue her exercise regimen and to avoid activities that could exacerbate her hip condition. Follow-up was planned to reassess her condition and consider further treatment options. - Continue taking calcium citrate and vitamin D supplements as directed. - Maintain a daily calcium intake of 1200 mg through diet and supplements. - Avoid activities that may worsen hip condition until further evaluation. - Consider reducing smoking and alcohol consumption to improve bone health. - The patient had an opportunity to ask questions regarding treatment plan. The patient expressed understanding and agreement with the above treatment plan. Patient was informed and verbally consented to the use of an ambient scribe for clinic note documentation during this visit. Orders: Orders Immunofixation, Random Urine Today M81.0 - Age-related osteoporosis without current pathological fracture Calcium, 24 Hr Ur Today M81.0 - Age-related osteoporosis without current pathological fracture Creatinine, 24 Hr Group Today M81.0 - Age-related osteoporosis without current pathological fracture Phosphorus Today M81.0 - Age-related osteoporosis without current pathological fracture Coding Level of Care Code New Pt Level 4 (01251) Diagnoses Osteoporosis M81.0
[2024-12-01 08:14] VITALS: BP 124/72; PULSE 75; O2SAT 96; BMI 25.7
--- OUTSIDE RECORDS SUMMARY | 2024-12-01 08:25 | XMS_ITS | Patient Health Record ---
Author [facility] Address [address] [address] Care Team Providers Care Milling Machinist Name Role Phone Rodrigue ZHANG, Mookie Primary Care Provider Unavaila Jonathan Kumar Unavailable [phone] Reason For Referral No Information Medications Medication SIG (Take, Route, Fr equency, Duration) Notes Start Date End Date Status hydroCHLOROthiazide Active Fish Oil Active Probiotic Active Vitamin B Complex Ac tive Problems No Known Problems Plan Of Treatment Pending Test Test Name Order Date [id number] Destruction, -11/12/2014 [id number] Destruction, 04-1412/03/2014 [id number] Destruction, 04-1412/31/2014 Insurance Providers Payer Name Payer Address Payer Phone Subscriber Number Group Number Insured Name Patient Relationship to Insured Coverage Start Date Coverage End Date Medicare National Govt Svcs Inc [address] [facility] [place] [phone] [id number] Julieta Green Self - patient is the insured [employer] Plan [address] [place] [phone] [id number] Julieta Green Self - patient is the insured Medical (General) History Medical History History ICD Code Chicken pox High blood pressure Measles Mumps Psoriasis/eczema Surgical History Surgery Date(Month/Year) tonsillectomy hernia
--- OUTSIDE RECORDS SUMMARY | 2024-12-01 08:25 | XMS_ITS | Patient Health Record ---
Author Organization [facility] Address [address] [place] [address] Care Team Providers Care Territory Manager Name Role Phone Mookie Husain MD Primary Care Provider Edwin Heller Unavailable [phone] Allergies Allergen (clinical drug ingredient) Drug/Non Drug [...] Problem Status W/U Status Risk Notes Problem 287219476 Encounter for screening for malignant neoplasm of colon (Z12.11) Active confirmed Problem 873581175 History of adenomatous polyp of colon (Z86.010) Active confirmed Problem 100845496 Personal history of colonic polyps (Z86.010) Active confirmed Problem Diverticular disease of colon (832762860) Diverticulosis of large intestine without perforation or abscess without bleeding (K57.30) Active confirmed Problem Intestinal bypas s and anastomosis status (Z98.0) Active confirmed Problem 023256363558249 Preprocedural examination (Z01.818) Active confirmed Problem 93170440 Constipation, unspecified constipation type (K59.00) Active confirmed Problem Benign neoplasm of colon (01192500) Colon adenoma (D12.6) Active confirmed Problem 279430240 NSAID long-term use (Z79.1) Active confirmed Plan Of Treatment Pending Test Test Name Order Date Pathology 06/18/2022 Future Test Test Name Order Date COLONOSCOPY 08/31/2014 COLONOSCOPY 12/23/2019 COLONOSCOPY 05/01/2022 Insurance Providers Payer Name Payer Address Payer Phone Subscriber Number Group Number Insured Name Patient Relationship to Insured Coverage Start Date Coverage End Date MEDICARE OF [place] [address] [facility] [place] [address] [id number] ALEJANDRO MANUEL Self - patient is the insured [facility] [address] [place] [address] [phone] [id number] ALEJANDRO MANUEL Self - patient is the insured Medical (General) History Medical History History ICD Code Denies [place],DM,CVA,Lung disease,renal dise ase [address] Jakob sykes--1st one had some polyps removed--the most recent exam was in approx 2009 and she received a colon recall letter from Dr. Huber HTN Hyperlipidemia Negative colonoscopy in 10/2014 Screening colonoscopy in Jan revealed a flat adenomatous lesion along the ileocecal valve that was not removed endoscopically. She was referred to Dr. Martinez for surgical evaluation. Had surgery as below. Surgical History Surgery Date(Month/Year) Tonsillectomy Right inginal hernia Tubal ligation Cecal resection with ileocolectomy for a sessile adenoma on the [facility] 03/2020
== END 2024-12-01 09:37 | disposition home or self-care (01) ==
LOC: HO.ENCR 08:05
PROVIDERS: Visit Provider Internal Medicine Endocrinology, Diabetes & Metabolism
DX: M81.0 Age-related osteoporosis without current pathological fracture (principal)
CPT/HCPCS: 99204

== ENCOUNTER → 2024-12-01 08:04 | Outpatient (BNVA) | payer MEDICARE, OTHER, SELFPAY | PROVIDERS: Visit Provider Internal Medicine Endocrinology, Diabetes & Metabolism | DX: M81.0 Age-related osteoporosis without current pathological fracture (principal) | CPT/HCPCS: 99202 ==

== ENCOUNTER 2024-12-15 07:57 | Outpatient (AMB) | payer MEDICARE, OTHER, SELFPAY ==
--- OUTSIDE RECORDS SUMMARY | 2024-12-15 08:04 | XMS_ITS | Patient Health Record ---
Author Organization [facility] Address [address] [place] [address] Care Team Providers Care Accounts Receivable Specialist Name Role Phone Rodrigue ZHANG, Mookie Primary Care Provider Unavaila Jonathan Kumar Unavailable [phone] Reason For Referral No Information Medications Medication SIG (Take, Route, Fr equency, Duration) Notes Start Date End Date Status hydroCHLOROthiazide Active Fish Oil Active Probiotic Active Vitamin B Complex Ac tive Problems No Known Problems Plan Of Treatment Pending Test Test Name Order Date [id number] Destruction, -11/12/2014 [id number] Destruction, 04-1412/03/2014 [id number]-Yuci Destruction, 04-1412/31/2014 Insurance Providers Payer Name Payer Address Payer Phone Subscriber Number Group Number Insured Name Patient Relationship to Insured Coverage Start Date Coverage End Date Medicare National Govt Svcs Inc [address] [place] [address] [phone] [id number] Julieta Green Self - patient is the insured [id number] Plan [address] [place] [phone] [id number] Julieta Green Self - patient is the insured Medical (General) History Medical History History ICD Code Chicken pox High blood pressure Measles Mumps Psoriasis/eczema Surgical History Surgery Date(Month/Year) tonsillectomy hernia
--- OUTSIDE RECORDS SUMMARY | 2024-12-15 08:04 | XMS_ITS | Patient Health Record ---
Author Organization [facility] Address [address] [place] [address] Care Team Providers Care Middle School Reading Teacher Name Role Phone Mookie Husain MD Primary Care Provider Edwin Heller Unavailable [phone] Allergies Allergen (clinical drug ingredient) Drug/Non Drug [...] Problem Status W/U Status Risk Notes Problem 870827267 Encounter for screening for malignant neoplasm of colon (Z12.11) Active confirmed Problem 826866751 History of adenomatous polyp of colon (Z86.010) Active confirmed Problem 261990009 Personal history of colonic polyps (Z86.010) Active confirmed Problem Diverticular disease of colon (017315923) Diverticulosis of large intestine without perforation or abscess without bleeding (K57.30) Active confirmed Problem History of gastrointestinal tract bypass (757122350) Intestinal bypass and anastomosis status (Z98.0) Active confirmed Problem 607669579114539 Preprocedural examination (Z01.818) Active confirmed Problem 01129885 Constipation, unspecified constipation type (K59.00) Active confirmed Problem Benign neoplasm of colon (76220117) Colon adenoma (D12.6) Active confirmed Problem 494080047 NSAID long-term use (Z79.1) Active confirmed Plan Of Treatment Pending Test Test Name Order Date Pathology 06/18/2022 Future Test Test Name Order Date COLONOSCOPY 08/31/2014 COLONOSCOPY 12/23/2019 COLONOSCOPY 05/01/2022 Insurance Providers Payer Name Payer Address Payer Phone Subscriber Number Group Number Insured Name Patient Relationship to Insured Coverage Start Date Coverage End Date MED[place]ARE OF [place] [address] [facility] [address] [id number] ALEJANDRO MANUEL Self - patient is the insured [facility] [address] [place] [address] [phone] [id number] ALEJANDRO MANUEL Self - patient is the insured Medical (General) History Medical History History ICD Code Denies [place],DM,CVA,Lung disease,renal dise ase [address] [...]
--- NOTE | 2024-12-15 08:32 | A.OFFVIS_ITS ---
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 Patient reports ongoing pain for about 2 months ago when she had her injury. Patient was going to sit and she fell down on her left side. She states that her pain is on the glutes and moves down to her leg. Patient has tried take ibuprofen and lidocaine patches with relief. IMPRESSION (MRI): No evidence of AVN. Superior left hip labral tear at 9-10:00. Focal deep partial to full-thickness fissure in the articular cartilage of the medial left femoral head, in the suprafoveal region. Mild to moderate degenerative changes in the left SI joint. Tendinopathy involving distal left gluteus medius and proximal left hamstring tendons. 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 Green is a 74-year-old female who presents to the office today stating that her PCP referred her for left hip pain roughly 2 months ago after the patient was going to sit and fell down landing onto her left side. She reports that the pain was present in the glutes and move down her leg. Pain is no longer present. She has been taking ibuprofen and using lidocaine patches which gave her great relief. Patient reports that she is no longer having any concerns today. [facility] Medical History Physical exam Hyperlipidemia History of pain when walking Situational anxiety Elevated cholesterol Hypertension Surgical History History of colon resection Hx of tonsillectomy Hx of colonoscopy History of tubal ligation H/O hernia repair Family History Father No problems noted. Mother Ovarian cancer Son Kidney malignancy Maternal Aunt Ovarian cancer Social History (Updated 12/15/24 @ 08:46 by Delbert Wolfe) Household Members Other:: grandson+friend Housing: House Are you a primary palliative care nurse practitioner to a significant other at home: No Do you presently have visiting nurse or other home services: No Alcohol intake: current Alcohol intake frequency: a few times a week Alcohol type: hard liquor Comment: pt sleeping Patient Tobacco Use Status: Current everyday Tobacco user Tobacco use type: Cigarette Cigarettes Per Day: 5 Years Smoked: 30 e-Cigarette/Vaping Use: Never Used Second Hand Smoke Exposure: No service: No Current occupational status: retired Cognitive needs: No Hearing needs: No Vision needs: Yes (glasses) Review of Systems Const All systems reviewed & are unremarkable except as noted in HPI and below Physical Exam Const General: cooperative, healthy appearing and no acute distress Resp Effort & Inspection: normal respiratory effort and able to speak in complete sentences Extrem Other: Left hip: Mild limitation with range of motion with internal external rotation with no groin pain reported. No tenderness to palpation over the greater trochanteric bursa. Able to perform straight leg raise. NVI. Psych Appearance: grossly normal Mental Status: mental status grossly normal Attitude: cooperative Assessment & Plan Assessment & Plan (1) Osteoarthritis of right hip: Code(s): M16.11 - Unilateral primary osteoarthritis, right hip Category: Medical Plan Ms. Green is a 74-year-old female who presents to the office today stating that her PCP referred her for left hip pain roughly 2 months ago after the patient was going to sit and fell down landing onto her left side. She reports that the pain was present in the glutes and move down her leg. Pain is no longer present. She has been taking ibuprofen and using lidocaine patches which gave her great relief. Patient reports that she is no longer having any concerns today. While in the office today, I reviewed the MRI images that were obtained on 09/24/2024 with the patient. MRI significant for left hip degenerative changes as well as a partial to full-thickness fissure in the articular cartilage of the medial left femoral head and [id number] degenerative changes of the SI joint. There is no surgical intervention that is warranted at this time. As the patient has had resolution of symptoms I have recommended that she return back to normal activity as tolerated. Should she have any increase in pain she will reach out to our office and I am happy to see her for follow-up at any time. Additionally, the patient discussed with me that she was seeing a health informatics specialist prior for psoriasis. She is looking for a provider to help manage this for her and possibly manage psoriatic arthritis. I have placed a referral to Rheumatology per patient request. She will follow up PRN, sooner if needed. X-rays of the pelvis which were obtained while in the office today and were reviewed by me, Vandana Hernandez PA-C, revealed degenerative changes left hip. No acute fracture or dislocation. Orders: Orders XR pelvis 1-2V Today M25.559 - Pain in unspecified hip Referrals Rheumatology Referral L40.9 - Psoriasis, unspecified Coding Level of Care Code New Pt Level 3 (91163) Diagnoses Osteoarthritis of right hip M16.11
== END 2024-12-15 09:57 | disposition home or self-care (01) ==
LOC: HO.HOS 07:57
PROVIDERS: Visit Provider Physician Assistant
DX: M16.11 Unilateral primary osteoarthritis, right hip (principal)
CPT/HCPCS: 99203

== ENCOUNTER → 2024-12-15 08:01 | Outpatient (BNV) | payer MEDICARE, OTHER, SELFPAY | PROVIDERS: Visit Provider Radiology Diagnostic Radiology | DX: M46.1 Sacroiliitis, not elsewhere classified (principal) | CPT/HCPCS: 72170 ==

== ENCOUNTER 2024-12-15 09:53 | Outpatient (REF) | payer MEDICARE, OTHER, SELFPAY ==
--- NOTE | ~2024-12-15 | XR_ITS ---
EXAMINATION: XR PELVIS CLINICAL INFORMATION: M25.559 - Pain in unspecified hip COMPARISON: None available. TECHNIQUE: AP view of the pelvis and 2 views left hip. FINDINGS: No fracture, dislocation, or suspicious bone lesion. The pelvis is intact. The hips have a normal appearance. No significant arthrosis. Normal acetabular coverage. Normal femoral head contours without evidence of AVN. Degenerative spondylosis and scoliosis of the lower lumbar spine. Left greater than right degenerative changes in the SI joints. Soft tissues demonstrate vascular calcifications. XR/XR pelvis 1-2V IMPRESSION: No acute findings in the pelvis or hip joints. Electronically signed by: Mika Easton MD 12/15/2024 08:35 AM EDT
--- OUTSIDE RECORDS SUMMARY | 2024-12-16 11:46 | XMS_ITS | Patient Health Record ---
Author Organization [facility] Address [address] [place] [address] Care Team Providers Care Framing Mill Operator Name Role Phone Mookie Husain MD Primary Care Provider Edwin Heller Unavailable [phone] Allergies Allergen (clinical drug ingredient) Drug/Non Drug [...] Problem Status W/U Status Risk Notes Problem 723182453 Encounter for screening for malignant neoplasm of colon (Z12.11) Active confirmed Problem 278100402 History of adenomatous polyp of colon (Z86.010) Active confirmed Problem 383286414 Personal history of colonic polyps (Z86.010) Active confirmed Problem Diverticular disease of colon (147900264) Diverticulosis of large intestine without perforation or abscess without bleeding (K57.30) Active confirmed Problem History of gastrointestinal tract bypass (490924930) Intestinal bypass and anastomosis status (Z98.0) Active confirmed Problem 240405441235478 Preprocedural examination (Z01.818) Active confirmed Problem 68240567 Constipation, unspecified constipation type (K59.00) Active confirmed Problem Benign neoplasm of colon (12245778) Colon adenoma (D12.6) Active confirmed Problem 215947317 NSAID long-term use (Z79.1) Active confirmed Plan Of Treatment Pending Test Test Name Order Date Pathology 06/18/2022 Future Test Test Name Order Date COLONOSCOPY 08/31/2014 COLONOSCOPY 12/23/2019 COLONOSCOPY 05/01/2022 Insurance Providers Payer Name Payer Address Payer Phone Subscriber Number Group Number Insured Name Patient Relationship to Insured Coverage Start Date Coverage End Date MEDICARE OF [place] [address] [facility] [address] [id number] ALEJANDRO MANUEL Self - patient is the insured [facility] [address] [place] [address] [phone] [id number] ALEJANDRO MANUEL Self - patient is the [...] ileocolectomy for a sessile adenoma on the [facility] 03/2020
--- OUTSIDE RECORDS SUMMARY | 2024-12-16 11:46 | XMS_ITS | Patient Health Record ---
[facility] Organization [facility] Address [address] [place] [address] Care Team Providers Care Jacket Preparer Name Role Phone Rodrigue ZHANG, Mookie Primary Care Provider Unavaila Jonathan Kumar Unavailable [phone] Reason For Referral No Information Medications Medication SIG (Take, Route, Fr equency, Duration) Notes Start Date End Date Status hydroCHLOROthiazide Active Fish Oil Active Probiotic Active Vitamin B Complex Ac tive Problems No Known Problems Plan Of Treatment Pending Test Test Name Order Date [id number] Destruction, -11/12/2014 [id number]-[id number] Destruction, 04-1412/03/2014 [id number]-Saks Destruction, 04-1412/31/2014 Insurance Providers Payer Name Payer Address Payer Phone Subscriber Number Group Number Insured Name Patient Relationship to Insured Coverage Start Date Coverage End Date Medicare National [employer] [address] [place] [address] [id number] Julieta Green Self - patient is the insured [email or web address] Plan [address] [place] [phone] [id number] Julieta Green Self - patient is the insured Medical (General) History Medical History History ICD Code Chicken pox High blood pressure Measles Mumps Psoriasis/eczema Surgical History Surgery Date(Month/Year) tonsillectomy hernia
== END 2024-12-15 09:54 | disposition home or self-care (01) ==
LOC: HO.HOSX 09:53
PROVIDERS: Visit Provider Physician Assistant
DX: M16.12 Unilateral primary osteoarthritis, left hip (principal)
CPT/HCPCS: 72170; 99202

== ENCOUNTER 2024-12-21 08:14 | Outpatient (AMB) | payer MEDICARE, OTHER, SELFPAY ==
[2024-12-21 08:59] VITALS: BP 138/68; PULSE 89; RESP 18; TEMP 36.2; O2SAT 98; BMI 25.7
--- NOTE | 2024-12-21 08:59 | MHC.PC.OV ---
Vital Signs 12/21/24 08:59 Height 5 ft 1.06 in Weight 136 lb 6 oz BMI 25.7 BP 138/68 Blood Pressure Location Lt brachial Position Sitting Respiration 18 Pulse 89 Pulse Source Pulse Oximeter Temp 97.1 F Temp Source Temporal Artery Scan Pulse Oximetry (%) 98 Oxygen Delivery Method Room Air Intake Visit Reasons: review cholesterol and MRI Progress Man Required: No Accompanied by: Self / Same As Patient Allergies No Known Allergies Allergy (Verified 12/21/24 08:59) Medication List - Last Reconciled 12/21/24 by Miya Purdy PA-C albuterol sulfate 90 mcg/actuation 2 puffs PO Q6H PRN amlodipine 5 mg PO DAILY atorvastatin 40 mg PO DAILY betamethasone dipropionate 0.05% 1 appl topical DAILY PRN calcium citrate 500 mg PO BID cholecalciferol (vitamin D3) (Vitamin D3) 25 mcg PO DAILY flaxseed 1,000 mg PO DAILY hydrochlorothiazide 25 mg PO DAILY lactobacillus combination no.9 (Adult 50 Plus Probiotic) 4,000 mmu cells PO DAILY loratadine (Claritin) 10 mg PO DAILY naproxen (Naprosyn) 500 mg PO BID PRN omega-3 fatty acids (Fish Oil Concentrate) 1,000 mg PO DAILY simethicone (Gas Relief (simethicone)) 180 mg PO DAILY Tobacco use date assessed: 12/21/24 Fall risk assessment: 1 Fall in past year Last assessed Fall Risk: 12/21/24 Dental Screening Dental Screen Date: 12/21/24 Did you have a dental visit in the last 12 months?: No Did you have a dental problem in the last 6 months where you did not have access to dental care?: No Was dental information given to patient?: No HPI review cholesterol and MRI HPI Details 74-year-old female with past medical history of hypertension, hyperlipidemia, psoriasis and tobacco dependence last seen 08/2024 coming in for follow up. In review of the notes, patient was seen by Orthopedics 12/15/2024 no surgical intervention warranted at this time and referral was placed to rheumatology advised to follow up as needed. Presenting with hip pain, psoriatic arthritis, depression symptoms, and weight gain. The patient reports ongoing hip pain, which was evaluated by orthopedics who determined that surgery was not necessary. The patient was advised by a orthopedics to consult a bioinformatics assistant for management of psoriatic arthritis. An appointment was scheduled, but it is over a year away. The patient expresses feelings of depression, attributing them to chronic pain and lifestyle changes, including a recent move and loss of personal items. Declining counseling or medication at this time. Despite maintaining a diet low in carbohydrates and engaging in regular physical activity, the patient reports weight gain. She attributes some of the weight gain to reduced smoking, as she has decreased her cigarette consumption to five per day. [facility] Medical History Physical exam Hyperlipidemia History of pain when walking Situational anxiety Elevated cholesterol Hypertension Surgical History History of colon resection Hx of tonsillectomy Hx of colonoscopy History of tubal ligation H/O hernia repair Family History Father No problems noted. Mother Ovarian cancer Son Kidney malignancy Maternal Aunt Ovarian cancer Social History Household Members Other:: grandson+friend Housing: House Are you a primary childcare administrator to a significant other at home: No Do you presently have visiting nurse or other home services: No Alcohol intake: current Alcohol intake frequency: a few times a week Alcohol type: hard liquor Comment: pt sleeping Patient Tobacco Use Status: Current everyday Tobacco user Tobacco use type: Cigarette Cigarettes Per Day: 5 Years Smoked: 30 Packs per year/per ci.50 e-Cigarette/Vaping Use: Never Used Second Hand Smoke Exposure: No service: No Current occupational status: retired Cognitive needs: No Hearing needs: No Vision needs: Yes (glasses) Questionnaire PHQ-9 Over the last 2 weeks, how often have you been bothered by any of the following problems? 1. Little interest or pleasure in doing things: not at all 2. Feeling down, depressed, or hopeless: not at all 3. Trouble falling or staying asleep, or sleeping too much: not at all 4. Feeling tired or having little energy: more than half the days 5. Poor appetite or overeating: not at all 6. Feeling bad about yourself - or that you are a failure or have let yourself or your family down: not at all 7. Trouble concentrating on things, such as reading the newspaper or watching television: not at all 8. Moving or speaking so slowly that other people could have noticed. Or the opposite - being so fidgety or restless that you have been moving around a lot more than usual: more than half the days 9. Thoughts that you would be better off or of hurting yourself in some way: not at all Total score: 4 Depression Screening Interpretation: Positive Depression Screening Done: Yes Source: Developed by Drs. Edwin Aponte, Julieta Varner, Yoandy Sevilla and colleagues, with an educational wilfred from [employer] Thrive Questionnaire Date Thrive assessed: 12/21/24 I am a: Patient What is your living situation today?: I have a steady place to live Within the past 12 months, did the food you bought not last and you didn't have the money to get more?: Never true Within the past 12 months, did you worry whether your food would run out before you got money to buy more?: Never true Do you have trouble paying for medicines?: No Do you have trouble getting transportation to medical appointments?: No Do you have trouble paying your heating and electricity bill?: No Do you have trouble taking care of your child, family member or friend?: No Do you have trouble with day-to-day activities such as bathing, preparing meals, shopping, managing finances, etc.?: No Are you currently unemployed and looking for a job?: No Are you interested in more education?: No Please select the resources that you would like help with: None Currently or been in a relationship where the following occur: No concerns reported THRIVE Score: 0 AUDIT C Alcohol Use Questionnaire (AUDIT-C) 1. How often do you have a drink containing alcohol?: 4 or more times a week 2. How many drinks containing alcohol do you have on a typical day when you are drinking?: 1 or 2 3. How often do you have six or more drinks on one occasion?: Never Total Score: 4 OPAL-7 AMB Questionnaire OPAL-7 Date OPAL - 7 assessed: 12/21/24 Feeling nervous, anxious, or on edge: 0 = Not at all Not being able to stop or control worryin = More than half the days Worrying too much about different things: 1 = Several days Trouble relaxin = Not at all Being so restless that it is hard to sit still: 2 = More than half the days Becoming easily annoyed or irritable: 0 = Not at all Feeling afraid as if something awful might happen: 0 = Not at all Total OPAL-7 score (0-4 normal; 5-9 mild; 10-14 moderate; 15-21 severe): 5 Source: Developed by Drs. Edwin Aponte, Julieta Varner, Yoandy Sevilla and colleagues, with an educational wilfred from [employer] Review of Systems Const Denies body aches, Denies chills, Denies fever(s), Denies headache(s) and Denies poor appetite Eyes Reports no additional complaints ENT Denies dizziness and Denies headache(s) Card Denies chest pain and Denies dyspnea Resp Denies dyspnea Musc Reports no additional complaints and Denies abnormal gait Skin/Breast Reports system reviewed and no additional complaints, except as documented Neuro Denies abnormal gait, Denies dizziness and Denies headache(s) Psych Reports no additional complaints Physical exam (Primary Care) Vital Signs: Last Vital Signs Temp 97.1 F 12/21/24 08:59 Pulse 89 12/21/24 08:59 Resp 18 12/21/24 08:59 BP 138/68 12/21/24 08:59 Pulse Ox 98 12/21/24 08:59 Oxygen Delivery Method Room Air 12/21/24 08:59 BMI result Body Mass Index 25.7 Tobacco/Smoking Status: Tobacco use Status Tobacco use date assessed 12/21/24 12/21/24 09:06 Patient Tobacco Use Status Current everyday Tobacco 12/21/24 09:06 Tobacco use type Cigarette 12/21/24 09:06 e-Cigarette/Vaping Use Never Used 12/21/24 09:06 PHQ-9: PHQ-9 Score PHQ-9: Total score 4 12/21/24 09:30 Depression Screening Interpretation: Positive Thrive Assessment: Date of Thrive Assessment Date Thrive assessed 09/01/24 12/21/24 09:10 Currently or been in a relationship where the following occur: No concerns reported Const General: cooperative, healthy appearing, comfortable and no acute distress Orientation/consciousness: patient oriented x3 HENMT Head: Yes normocephalic Ears: hearing grossly normal bilaterally General nose exam: Normal external nose present Eyes General: appearance normal, both eyes and all related structures Conjunctivae: conjunctivae normal Neck Neck: Yes full ROM and Yes no lymphadenopathy Resp Effort & Inspection: normal respiratory effort Auscultation: clear to auscultation bilaterally, no crackles, no rales, no rhonchi and no wheezes Cardio Rate: regular rate Rhythm: regular rhythm Skin General skin exam: no rashes or lesions noted Neuro General: patient oriented x3 Gait exam (Neuro): Normal gait present Extrem General: Yes normal to inspection, Yes full ROM and No edema Psych Affect: normal affect Attitude: cooperative Insight: Good insight present (Psych) Judgement: Good judgement present (Psych) Coding Level of Care Code Est Pt Level 3 (24146) Diagnoses Tobacco dependence F17.200 Psoriasis L40.9 Hyperlipidemia E78.5 Hypertension I10 Left hip pain M25.552 Seasonal allergies J30.2 Assessment & Plan Assessment & Plan (1) Tobacco dependence: Comment: . Code(s): F17.200 - Nicotine dependence, unspecified, uncomplicated Category: Medical Plan: Smoking cigarettes and the use of tobacco can be harmful. We discussed the importance of stopping and options to aid in smoking cessation. Has been cutting back because of her living situation. Not interested in smoking cessation at this time. Declines lung cancer screening program today. She has cut back on smoking. (2) Psoriasis: Code(s): L40.9 - Psoriasis, unspecified Category: Medical Plan: History of being seen by dermatology but has not been seen in many years. She is looking to re-establish with dermatology and referral was placed to Zafar pizarro at last visit. (3) Hyperlipidemia: Code(s): E78.5 - Hyperlipidemia, unspecified Category: Medical Plan: Avoid foods that are high in cholesterol such as red meat, fried foods, eggs and baked goods. Triglyceride goal of less than 150 and LDL goal of less than 100. Continue on atorvastatin 20. Ordered for updated blood work. (4) Hypertension: Code(s): I10 - Essential (primary) hypertension Category: Medical Plan: Continue on current blood pressure medication. Avoid salt intake and encourage healthy diet and regular exercise. (5) Left hip pain: Code(s): M25.552 - Pain in left hip Category: Medical Plan: For left hip pain she was seen by Orthopedics and determined to be a nonsurgical candidate and she will follow up with their office as needed. Hip pain has significantly improved and she is back to her daily activity. She is advised by Orthopedics to see Rheumatology an appointment was made for 1 year. I did offer referral to a different rheumatology office which was declined. (6) Seasonal allergies: Code(s): J30.2 - Other seasonal allergic rhinitis Category: Medical Plan: prescription for claritin sent to pharmacy at last visit but she feels this is not working. PLan to trial Orly instead. Plan This note was constructed using voice recognition software. While every effort has been made to ensure accuracy and compensation intern, still areas may have been included sometimes these areas may affect the content or meeting of the given symptoms. Total time spent caring for the patient today was 30 minutes. This includes time spent before the visit reviewing the chart, time spent during the visit, and time spent after the visit and documentation. Patient was informed and verbally consented to the use of an ambient scribe for clinic note documentation during this visit. Orders: Orders TSH reflex Free T4 Today M81.0 - Age-related osteoporosis without current pathological fracture, Z13.29 - Encounter for screening for other suspected endocrine disorder Comprehensive Met. Panel Today M81.0 - Age-related osteoporosis without current pathological fracture, Z00.00 - Encounter for general adult medical examination without abnormal findings Complete Blood Count Auto Diff Today M81.0 - Age-related osteoporosis without current pathological fracture, Z00.00 - Encounter for general adult medical examination without abnormal findings Vitamin B12 and Folate Today M81.0 - Age-related osteoporosis without current pathological fracture, Z13.21 - Encounter for screening for nutritional disorder Vitamin D 25-OH Total Today M81.0 - Age-related osteoporosis without current pathological fracture, Z13.21 - Encounter for screening for nutritional disorder Medications: New fexofenadine (Orly Allergy) 180 mg PO DAILY 90 tabs 0RF azelastine (Astepro Allergy) administer into each nostril 1 spray intranasal BEDTIME 11 mL 0RF Discontinued loratadine (Claritin) Discontinued Reason: Patient no longer taking 10 mg PO DAILY 90 tabs 0RF
--- OUTSIDE RECORDS SUMMARY | 2024-12-21 09:17 | XMS_ITS | Patient Health Record ---
Author Organization [facility] Address [address] [place] [address] Care Team Providers Care Manager Equipment Name Role Phone Mookie Husain MD Primary Care Provider Edwin Heller Unavailable [phone] Allergies Allergen (clinical drug ingredient) Drug/Non Drug [...] Problem Status W/U Status Risk Notes Problem 525546605 Encounter for screening for malignant neoplasm of colon (Z12.11) Active confirmed Problem 982700914 History of adenomatous polyp of colon (Z86.010) Active confirmed Problem 246557338 Personal history of colonic polyps (Z86.010) Active confirmed Problem Diverticular disease of colon (298038871) Diverticulosis of large intestine without perforation or abscess without bleeding (K57.30) Active confirmed Problem History of gastrointestinal tract bypass (587790217) Intestinal bypass and anastomosis status (Z98.0) Active confirmed Problem 169533426067066 Preprocedural examination (Z01.818) Active confirmed Problem 53205852 Constipation, unspecified constipation type (K59.00) Active confirmed Problem Benign neoplasm of colon (08258456) Colon adenoma (D12.6) Active confirmed Problem 538361955 NSAID long-term use (Z79.1) Active confirmed Plan Of Treatment Pending Test Test Name Order Date Pathology 06/18/2022 Future Test Test Name Order Date COLONOSCOPY 08/31/2014 COLONOSCOPY 12/23/2019 COLONOSCOPY 05/01/2022 Insurance Providers Payer Name Payer Address Payer Phone Subscriber Number Group Number Insured Name Patient Relationship to Insured Coverage Start Date Coverage End Date [place]ICARE OF [place] [address] [facility] [address] [id number] ALEJANDRO MANUEL Self - patient is the insured [facility] [address] [place] [phone] [id number] ALEJANDRO MANUEL Self - patient is the insured Medical (General) History Medical History History ICD Code Denies [place],DM,CVA,Lung disease,renal dise ase [address] [...] ileocolectomy for a sessile adenoma on the [facility] 03/2020
--- OUTSIDE RECORDS SUMMARY | 2024-12-21 09:17 | XMS_ITS | Patient Health Record ---
Author Organization [facility] Address [address] [place] [address] Care Team Providers Care Service Line Bus Cleaner Name Role Phone Rodrigue ZHANG, Mookie Primary Care Provider Unavaila Jonathan Kumar Unavailable [phone] Reason For Referral No Information Medications Medication SIG (Take, Route, Fr equency, Duration) Notes Start Date End Date Status hydroCHLOROthiazide Active Fish Oil Active Probiotic Active Vitamin B Complex Ac tive Problems No Known Problems Plan Of Treatment Pending Test Test Name Order Date [id number] Destruction, -11/12/2014 [id number] Destruction, 04-1412/03/2014 [id number] Destruction, 04-1412/31/2014 Insurance Providers Payer Name Payer Address Payer Phone Subscriber Number Group Number Insured Name Patient Relationship to Insured Coverage Start Date Coverage End Date Medicare National Govt Svcs Inc [address] [place] [phone] [id number] Julieta Green Self - patient is the insured [employer] Plan [address] [place] [address] [id number] Julieta Green Self - patient is the insured Medical (General) History Medical History History ICD Code Chicken pox High blood pressure Measles Mumps Psoriasis/eczema Surgical History Surgery Date(Month/Year) tonsillectomy hernia
== END 2024-12-21 10:00 | disposition home or self-care (01) ==
DX: F17.200 Nicotine dependence, unspecified, uncomplicated (principal); L40.9 Psoriasis, unspecified; E78.5 Hyperlipidemia, unspecified; I10 Essential (primary) hypertension; M25.552 Pain in left hip; J30.2 Other seasonal allergic rhinitis

== ENCOUNTER → 2024-12-21 08:14 | Outpatient (BNVA) | payer MEDICARE, OTHER, SELFPAY | DX: I10 Essential (primary) hypertension (principal); E78.5 Hyperlipidemia, unspecified; L40.9 Psoriasis, unspecified; F17.210 Nicotine dependence, cigarettes, uncomplicated; M25.552 Pain in left hip; J30.2 Other seasonal allergic rhinitis; M81.0 Age-related osteoporosis without current pathological fracture | CPT/HCPCS: 96127; 99212 ==

== ENCOUNTER 2025-02-15 08:39 | Outpatient (REF) | payer MEDICARE, OTHER, SELFPAY ==
[2025-02-15 10:15] LABS: MANUAL DIFF FLAG NO
[2025-02-15 10:31] LABS: Hematocrit 45.0 % (37.0-47.0); Hemoglobin 16.0 g/dl (12.0-16.0); Imm Gran Abs Auto 0.02 X10*3/uL (0.00-0.03); Imm Gran Pct Auto 0.2 % (0.0-0.4); Lymphocytes Absolute Auto 1.1 X10*3/uL (1.2-4.9); Mean Corpuscular HGB Conc 35.6 g/dl (31.0-35.0); Mean Corpuscular Hemoglobin 35.2 pg (27.0-33.0); Mean Corpuscular Volume 98.9 fL (80.0-98.0); NRBC Abs Auto 0.000 X10*3/uL (0.0-0.012); NRBC Pct Auto 0.0 /100WBC (0.0-0.2); Platelet Count 349 X10*3/uL (160-400); Red Blood Count 4.55 X10*6/uL (4.20-5.50); White Blood Count 8.6 X10*3/uL (4.8-10.8)
[2025-02-15 10:55] LABS: Alanine Aminotransferase 20 U/L (0-31); Albumin Level 4.7 g/dL (3.5-5.0); Alkaline Phosphatase 102 U/L (39-117); Anion Gap 16 (12-20); Aspartate Amino Transferase 28 U/L (5-31); Blood Urea Nitrogen 10 mg/dL (9-16); Calcium 10.1 mg/dL (8.4-10.2); Carbon Dioxide 26 mmol/L (22-29); Chloride 98 mmol/L (96-108); Cholesterol 177 mg/dL (<200); Estimated Glomerular Filt Rate > 60; HDL Cholesterol 85 mg/dL (>40); Potassium 3.3 mmol/L (3.3-5.1); Sodium 137 mmol/L (135-145); Total Protein 7.6 g/dL (6.5-8.0); Triglycerides 73 mg/dL (<150)
[2025-02-15 11:14] LABS: Folate 8.4 ng/mL (> or = 4.0); Vitamin B12 366 pg/mL (200-900)
[2025-02-15 12:24] LABS: Creatinine, mg/dL 52.98
[2025-02-15 12:30] LABS: Total Volume 24 Hour Urine 1475 mL
[2025-02-16 21:28] LABS: Calcium/Creatinine Ratio 185 mg/g creat (30-275); Creatinine 24Hr Urine 0.80 g/24 h (0.50-2.15)
== END 2025-02-15 08:40 | disposition home or self-care (01) ==
LOC: HO.HMGCLDS 08:39
PROVIDERS: Absent Provider Internal Medicine Endocrinology, Diabetes & Metabolism
DX: Z00.00 Encounter for general adult medical examination without abnormal findings (principal); Z13.21 Encounter for screening for nutritional disorder; Z13.29 Encounter for screening for other suspected endocrine disorder; M81.0 Age-related osteoporosis without current pathological fracture; E78.00 Pure hypercholesterolemia, unspecified
CPT/HCPCS: 36415; 80053; 80061; 82306; 82340; 82570; 82607; 82746; 84100; 84443; 85025; 86335

== ENCOUNTER 2025-03-01 11:59 | Outpatient (REF) | payer MEDICARE, OTHER, SELFPAY ==
--- NOTE | ~2025-03-01 | MM_ITS ---
EXAMINATION: MM SCREENING DIGITAL BREAST TOMOSYNTHESIS, BILATERAL CLINICAL INFORMATION: Screening. Asymptomatic. COMPARISON: Mammography: Comparison is made with available priors TECHNIQUE: Digital breast mammography with tomosynthesis is performed in both the craniocaudal and mediolateral oblique views along with computer-aided detection (CAD). FINDINGS: The breasts are heterogeneously dense, which may obscure small masses. There are no significant masses, abnormal calcifications, or other abnormalities. MM/MM tomosynthesis screening BI IMPRESSION: No mammographic evidence of malignancy. ASSESSMENT: BI-RADS Category 1: Negative RECOMMENDATION: Routine annual mammography screening. 1 year F/U This examination should not preclude the clinical evaluation of a suspicious palpable abnormality. This patient's information was entered into a reminder system with a target due date for their next mammogram. Electronically signed by: Petra Mcqueen DO 03/01/2025 02:23 PM RYAN
== END 2025-03-01 12:00 | disposition home or self-care (01) ==
LOC: HO.MAMMO 11:59
DX: Z12.31 Encounter for screening mammogram for malignant neoplasm of breast (principal)
CPT/HCPCS: 77063; 77067

== ENCOUNTER → 2025-03-01 12:30 | Outpatient (BNV) | payer MEDICARE, OTHER, SELFPAY | PROVIDERS: Visit Provider Internal Medicine | DX: Z12.31 Encounter for screening mammogram for malignant neoplasm of breast (principal) | CPT/HCPCS: 77063; 77067 ==

== ENCOUNTER 2025-03-04 09:15 | Outpatient (AMB) | payer MEDICARE, OTHER, SELFPAY ==
--- NOTE | 2025-03-04 09:27 | MHC.PC.OV ---
Vital Signs 03/04/25 09:28 Height 5 ft 1.06 in Weight 133 lb 2 oz BMI 25.1 BP 110/70 Blood Pressure Location Lt brachial Position Sitting Pulse 93 Pulse Source Pulse Oximeter Temp 97.3 F Temp Source Temporal Artery Scan Pulse Oximetry (%) 95 Oxygen Delivery Method Room Air Intake Visit Reasons: Annual Exam Intake Note: Patient is here today for a physical. 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 Accompanied by: Self / Same As Patient Allergies No Known Allergies Allergy (Verified 03/04/25 09:50) Medication List - Last Reconciled 03/04/25 by Miya Purdy PA-C albuterol sulfate 90 mcg/actuation 2 puffs PO Q6H PRN amlodipine 5 mg PO DAILY atorvastatin 40 mg PO DAILY azelastine (Astepro Allergy) 1 spray intranasal BEDTIME betamethasone dipropionate 0.05% 1 appl topical DAILY PRN calcium citrate 500 mg PO BID cholecalciferol (vitamin D3) (Vitamin D3) 25 mcg PO DAILY fexofenadine (Orly Allergy) 180 mg PO DAILY flaxseed 1,000 mg PO DAILY hydrochlorothiazide 25 mg PO DAILY lactobacillus combination no.9 (Adult 50 Plus Probiotic) 4,000 mmu cells PO DAILY naproxen (Naprosyn) 500 mg PO BID PRN omega-3 fatty acids (Fish Oil Concentrate) 1,000 mg PO DAILY simethicone (Gas Relief (simethicone)) 180 mg PO DAILY Tobacco use date assessed: 03/04/25 Fall risk assessment: No Falls in past year Last assessed Fall Risk: 03/04/25 Dental Screening Dental Screen Date: 12/21/24 [facility] Annual Exam HPI Details 75-year-old female with past medical history of hypertension, hyperlipidemia, psoriasis and tobacco dependence last seen 11/2024 coming in for annual exam. Presenting for a six-month follow-up for chronic condition management and health maintenance. Patient was recently diagnosed with osteoporosis in the has upcoming appointment with endocrinology. The patient has arthritis in her hip and neck, which she manages with occasional ibuprofen, Salonpas patches, and Biofreeze. colonoscopy: 05/2024 Dr. Morton mammo: 03/2025 LCS: declined DEXA: 09/2024 vaccines: [facility] Medical History Physical exam Hyperlipidemia History of pain when walking Situational anxiety Elevated cholesterol Hypertension Surgical History History of colon resection Hx of tonsillectomy Hx of colonoscopy History of tubal ligation H/O hernia repair Family History Father No problems noted. Mother Ovarian cancer Son Kidney malignancy Maternal Aunt Ovarian cancer Social History Household Members Other:: grandson+friend Housing: House Are you a primary career development manager to a significant other at home: No Do you presently have visiting nurse or other home services: No Alcohol intake: current Alcohol intake frequency: 0-2 drinks per day Alcohol type: hard liquor Comment: pt sleeping Patient Tobacco Use Status: Current everyday Tobacco user Tobacco use type: Cigarette Cigarette Packs Per Day: 0.5 Cigarettes Per Day: 5 Years Smoked: 30 e-Cigarette/Vaping Use: Never Used Second Hand Smoke Exposure: Yes service: No Current occupational status: retired Cognitive needs: No Hearing needs: No Vision needs: Yes (glasses) Questionnaire PHQ-9 Over the last 2 weeks, how often have you been bothered by any of the following problems? 1. Little interest or pleasure in doing things: not at all 2. Feeling down, depressed, or hopeless: not at all 3. Trouble falling or staying asleep, or sleeping too much: not at all 4. Feeling tired or having little energy: more than half the days 5. Poor appetite or overeating: not at all 6. Feeling bad about yourself - or that you are a failure or have let yourself or your family down: not at all 7. Trouble concentrating on things, such as reading the newspaper or watching television: not at all 8. Moving or speaking so slowly that other people could have noticed. Or the opposite - being so fidgety or restless that you have been moving around a lot more than usual: more than half the days 9. Thoughts that you would be better off or of hurting yourself in some way: not at all Total score: 4 Depression Screening Interpretation: Positive Depression Screening Done: Yes Source: Developed by Drs. Edwin Aponte, Julieta Varner, Yoandy Sevilla and colleagues, with an educational wilfred from [employer]. Thrive Questionnaire Date Thrive assessed: 09/01/24 I am a: Patient What is your living situation today?: I have a steady place to live Within the past 12 months, did the food you bought not last and you didn't have the money to get more?: Never true Within the past 12 months, did you worry whether your food would run out before you got money to buy more?: Never true Do you have trouble paying for medicines?: No Do you have trouble getting transportation to medical appointments?: No Do you have trouble paying your heating and electricity bill?: No Do you have trouble taking care of your child, family member or friend?: No Do you have trouble with day-to-day activities such as bathing, preparing meals, shopping, managing finances, etc.?: No Are you currently unemployed and looking for a job?: No Are you interested in more education?: No Please select the resources that you would like help with: None Currently or been in a relationship where the following occur: No concerns reported THRIVE Score: 0 OPAL-7 AMB Questionnaire OPAL-7 Date OPAL - 7 assessed: 12/21/24 Feeling nervous, anxious, or on edge: 0 = Not at all Not being able to stop or control worryin = More than half the days Worrying too much about different things: 1 = Several days Trouble relaxin = Not at all Being so restless that it is hard to sit still: 2 = More than half the days Becoming easily annoyed or irritable: 0 = Not at all Feeling afraid as if something awful might happen: 0 = Not at all Total OPAL-7 score (0-4 normal; 5-9 mild; 10-14 moderate; 15-21 severe): 5 Source: Developed by Drs. Edwin Aponte, Yoandy Ace and colleagues, with an educational wilfred from [employer]. Review of Systems Const Denies body aches, Denies chills, Denies fever(s) and Denies poor appetite Eyes Reports no additional complaints ENT Denies dysphagia, Denies dizziness and Denies odynophagia Card Denies chest pain, Denies syncope, Denies edema, Denies irregular heart rhythm, Denies lightheadedness and Denies dyspnea Resp Denies cough and Denies dyspnea GI Denies abdominal pain, Denies constipation, Denies dysphagia, Denies diarrhea, Denies nausea, Denies odynophagia and Denies vomiting Reports no additional complaints Musc Reports no additional complaints and Denies abnormal gait Skin/Breast Reports system reviewed and no additional complaints, except as documented Neuro Denies abnormal gait, Denies dizziness and Denies syncope Psych Reports no additional complaints Physical exam (Primary Care) Vital Signs: Last Vital Signs Temp 97.3 F 03/04/25 09:28 Pulse 93 03/04/25 09:28 BP 110/70 03/04/25 09:28 Pulse Ox 95 03/04/25 09:28 Oxygen Delivery Method Room Air 03/04/25 09:28 BMI result Body Mass Index 25.1 Tobacco/Smoking Status: Tobacco use Status Tobacco use date assessed 03/04/25 03/04/25 09:32 Patient Tobacco Use Status Current everyday Tobacco 03/04/25 09:32 Tobacco use type Cigarette 03/04/25 09:32 e-Cigarette/Vaping Use Never Used 03/04/25 09:32 PHQ-9: PHQ-9 Score PHQ-9: Total score 4 03/04/25 09:53 Depression Screening Interpretation: Positive Thrive Assessment: Date of Thrive Assessment Date Thrive assessed 09/01/24 03/04/25 09:32 Currently or been in a relationship where the following occur: No concerns reported Const General: cooperative, healthy appearing, comfortable and no acute distress Orientation/consciousness: patient oriented x3 HENMT Head: Yes normocephalic Ears: hearing grossly normal bilaterally, external ears normal, TM's normal bilaterally and EAC's normal General nose exam: Normal external nose present Face and sinus: Yes normal facial exam and Yes sinuses nontender Mouth: Normal oral and palatal mucosa present and tongue normal Throat: Yes posterior oropharynx normal Eyes General: appearance normal, both eyes and all related structures Conjunctivae: conjunctivae normal Pupils: Equal, round and reactive pupils present EOM: EOMs intact bilaterally and No Nystagmus present Neck Neck: Yes normal visual inspection, Yes full ROM and Yes no lymphadenopathy Chest Chest palpation & inspection: normal inspection of the chest Resp Effort & Inspection: normal respiratory effort Auscultation: clear to auscultation bilaterally, no crackles, no rales, no rhonchi, no wheezes and breath sounds present Cardio Rate: regular rate Rhythm: regular rhythm Peripheral pulses: radial pulses present and dorsalis pedis present GI Inspection: Yes normal to inspection and No Abdominal wall edema Palpation (GI): Soft to palpation, not firm and nontender Auscultation: normal bowel sounds Rectal Exam - Female: deferred General: Yes no CVA tenderness Back/Spine/Pelvis Back: no CVA tenderness Skin General skin exam: no rashes or lesions noted Neuro General: patient oriented x3 Cranial nerves: Yes Equal, round and reactive pupils present, Yes Midline tongue present, Yes Ability to bilaterally elevate shoulders present and No Nystagmus present Gait exam (Neuro): Normal gait present Extrem General: Yes normal to inspection, Yes full ROM, No no pedal edema and No edema Psych Speech and movement: Normal speech and movement present Affect: normal affect Insight: Good insight present (Psych) Judgement: Good judgement present (Psych) Coding Level of Care Code Est Pt Prev Care >65y(10156) Diagnoses Adult general medical exam Z00.00 Tobacco dependence F17.200 Psoriasis L40.9 Hyperlipidemia E78.5 Hypertension I10 Left hip pain M25.552 Osteoporosis M81.0 Assessment & Plan Assessment & Plan (1) Adult general medical exam: Code(s): Z00.00 - Encounter for general adult medical examination without abnormal findings Category: Medical Plan: Patient is up-to-date on all recommended routine screenings and vaccinations for her age. Blood work is up-to-date and has been reviewed with the patient today. Healthy diet and regular exercise is encouraged. (2) Tobacco dependence: Comment: . Code(s): F17.200 - Nicotine dependence, unspecified, uncomplicated Category: Medical Plan: Smoking cigarettes and the use of tobacco can be harmful. We discussed the importance of stopping and options to aid in smoking cessation. Has been cutting back because of her living situation. Not interested in smoking cessation at this time. Declines lung cancer screening program today. She has cut back on smoking. (3) Psoriasis: Code(s): L40.9 - Psoriasis, unspecified Category: Medical Plan: History of being seen by dermatology but has not been seen in many years. She is looking to re-establish with dermatology and new referral was placed (4) Hyperlipidemia: Code(s): E78.5 - Hyperlipidemia, unspecified Category: Medical Plan: Avoid foods that are high in cholesterol such as red meat, fried foods, eggs and baked goods. Triglyceride goal of less than 150 and LDL goal of less than 100. Continue on atorvastatin 20. LAst LDL within goal (5) Hypertension: Code(s): I10 - Essential (primary) hypertension Category: Medical Plan: Continue on current blood pressure medication. Avoid salt intake and encourage healthy diet and regular exercise. (6) Left hip pain: Code(s): M25.552 - Pain in left hip Category: Medical Plan: Has improved she will continue to monitor at this time. She will continue to use Salonpas and tylenol prn. (7) Osteoporosis: Comment: DEXA 09/2024 Code(s): M81.0 - Age-related osteoporosis without current pathological fracture Category: Medical Plan: Continue to follow with endocrinology and next appt for 04/2025. Plan This note was constructed using voice recognition software. While every effort has been made to ensure accuracy and shaker washer, still areas may have been included sometimes these areas may affect the content or meeting of the given symptoms. Total time spent caring for the patient today was 30 minutes. This includes time spent before the visit reviewing the chart, time spent during the visit, and time spent after the visit and documentation. Patient was informed and verbally consented to the use of an ambient scribe for clinic note documentation during this visit. Orders: Orders Lipid Panel 6 Months E78.00 - Pure hypercholesterolemia, unspecified Complete Blood Count Auto Diff 6 Months I10 - Essential (primary) hypertension, Z13.0 - Encounter for screening for diseases of the blood and blood-forming organs and certain disorders involving the immune mechanism Comprehensive Met. Panel 6 Months I10 - Essential (primary) hypertension, Z00.00 - Encounter for general adult medical examination without abnormal findings
[2025-03-04 09:28] VITALS: BP 110/70; PULSE 93; TEMP 36.3; O2SAT 95; BMI 25.1
--- OUTSIDE RECORDS SUMMARY | 2025-03-04 10:18 | XMS_ITS | Patient Health Record ---
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 Name Role Phone Rodrigeu ZHANG, Mookie Primary Care Provider Unavaila Jonathan Kumar Unavailable [phone] Reason For Referral No Information Medications Medication SIG (Take, Route, Fr equency, Duration) Notes Start Date End Date Status hydroCHLOROthiazide Active Fish Oil Active Probiotic Active Vitamin B Complex Ac tive Problems No Known Problems Plan Of Treatment Pending Test Test Name Order Date [id number] Destruction, -11/12/2014 [id number] Destruction, 04-1412/03/2014 [id number] Destruction, 04-1412/31/2014 Insurance Providers Payer Name Payer Address Payer Phone Subscriber Number Group Number Insured Name Patient Relationship to Insured Coverage Start Date Coverage End Date Medicare National Govt Svcs Inc [address] [facility] [place] [address] [id number] Julieta Green Self - patient is the insured [employer] Plan [address] [place] [phone] [id number] Julieta Green Self - patient is the insured Medical (General) History Medical History History ICD Code Chicken pox High blood pressure Measles Mumps Psoriasis/eczema Surgical History Surgery Date(Month/Year) tonsillectomy hernia
== END 2025-03-04 10:16 | disposition home or self-care (01) ==
LOC: HO.HMCH 09:16
DX: Z00.00 Encounter for general adult medical examination without abnormal findings (principal); F17.200 Nicotine dependence, unspecified, uncomplicated; L40.9 Psoriasis, unspecified; E78.5 Hyperlipidemia, unspecified; I10 Essential (primary) hypertension; M25.552 Pain in left hip; M81.0 Age-related osteoporosis without current pathological fracture

== ENCOUNTER → 2025-03-04 09:15 | Outpatient (BNVA) | payer MEDICARE, OTHER, SELFPAY | DX: Z00.00 Encounter for general adult medical examination without abnormal findings (principal); M81.0 Age-related osteoporosis without current pathological fracture; L40.9 Psoriasis, unspecified; E78.5 Hyperlipidemia, unspecified; F17.200 Nicotine dependence, unspecified, uncomplicated; I10 Essential (primary) hypertension; M25.552 Pain in left hip; Z13.31 Encounter for screening for depression | CPT/HCPCS: 96127; 99397 ==